=== PATIENT | female | born 1965 | race Caucasian/White ===

== ENCOUNTER 2020-03-04 01:32 | Outpatient (CLI) | payer OTHER, SELFPAY ==
[2020-03-04 18:04] LABS: SARS-CoV-2 RNA PCR Negative
== END 2020-03-04 01:33 | disposition home or self-care (01) ==
LOC: ANHCOVIDDT 01:33
PROVIDERS: PCP Family Medicine; Visit Provider Internal Medicine Gastroenterology
DX: Z01.812 Encounter for preprocedural laboratory examination (principal); Z20.828 Contact with and (suspected) exposure to other viral communicable diseases
CPT/HCPCS: 87635; C9803; U0003

== ENCOUNTER 2020-03-08 02:00 | Day surgery (SDC) | payer OTHER, SELFPAY ==
[2020-03-02 12:16] VITALS: BMI 27.8
[2020-03-08 08:26] VITALS: BP 151/82; PULSE 79; RESP 18; TEMP 36.3; O2SAT 100; BMI 28.4
[2020-03-08] MEDS: LACTATED RINGERS 1,000 ML 150 ML IV CONT (08:38)
[2020-03-08 08:45] LABS: Glucose Point of Care 152 (65-105)
--- NOTE | 2020-03-08 09:13 | WPDANESEPPF ---
Anes - Initial Pre Proc Eval Procedure: Operation Date: 03/08/20 09:30 Proposed Procedures p Screening Colonoscopy - Angel Leyva MD Date/Time: 03/08/20 09:13 Surgeon: Angel Leyva MD Pre Op Diagnosis: Neoplasm Screening Patient Data Age: 54 Gender: F Height: 5 ft 1 in Weight: 68.3 kg Last Vital Signs Temp 36.3 C L 03/08/20 08:26 Pulse 79 03/08/20 08:26 Resp 18 03/08/20 08:26 BP 151/82 H 03/08/20 08:26 Pulse Ox 100 03/08/20 08:26 Allergies Allergy/AdvReac Type Severity Reaction Status Date / Time No Known Allergies Allergy Mild Verified 03/08/20 08:25 Home Medications Medication Instructions Recorded Confirmed Type blood sugar diagnostic #10 each 04/19/19 01/28/20 History insulin detemir U-100 100 unit/mL 16 unit SUB-Q DAILY 04/19/19 03/02/20 History (3 mL) subcutaneous pen insulin lispro 100 unit/mL 14 unit SUB-Q BID 04/19/19 03/02/20 History subcutaneous pen pen needle, diabetic 30 gauge x #100 each 04/19/19 01/28/20 History /16 gabapentin 300 mg capsule 300 mg PO TID #270 cap 11/26/19 03/02/20 Rx fluoxetine 20 mg tablet 20 mg PO DAILY #90 tablet 01/14/20 03/02/20 Rx metoprolol tartrate 25 mg tablet 25 mg PO BID #180 tablet 01/14/20 03/02/20 Rx hydrocodone 5 mg-acetaminophen 325 1 tablet PO Q6H PRN #120 tablet 01/28/20 03/02/20 Rx mg tablet ascorbic acid (vitamin C) 1 g PO DAILY 03/02/20 03/02/20 History biotin 100 mg PO DAILY 03/02/20 03/02/20 History cholecalciferol (vitamin D3) 125 mcg PO WEEKLY 03/02/20 03/02/20 History [Vitamin D3] coenzyme Q10 [Co Q-10] 100 mg PO DAILY 03/02/20 03/08/20 History dulaglutide [Trulicity] 1.5 mg SUBCUT WEEKLY 03/02/20 03/08/20 History omega-3 fatty acids [[place] Oil] 1,200 mg PO DAILY 03/02/20 03/02/20 History zolpidem 10 mg PO HS 03/02/20 03/02/20 History sodium,potassium,mag sulfates 17.5 354 ml PO .COMPLEX #354 ml 03/06/20 Rx gram-3.13 gram-1.6 gram oral soln sodium,potassium,mag sulfates 17.5 See Rx Instructions PO .COMPLEX 03/06/20 Rx gram-3.13 gram-1.6 gram oral soln #354 ml Laboratory Tests 03/08/20 08:33 POC Capillary Glucose 152 mg/dl H mg/dl (65-105) Patient hx anesthesia problems: none Family hx anesthesia problems: none PMFSH Past Medical History Medical History Benign reactive hypertension Chronic insomnia Chronic pain Chronic pain disorder Diabetes mellitus Encounter for orthopedic aftercare following scoliosis surgery Mixed hyperlipidemia Nephroblastoma Scoliosis after radiation therapy Surgical History Surgical History H/O partial nephrectomy H/O right nephrectomy Family History Family History Mother Hypertension Father Family history of malignant neoplasm, Onset Age: 72 Patient's father is Social History Social History Smoking status: Never smoker Second hand tobacco smoke exposure: No Alcohol intake: never Substance use: never Substance use type: does not use Living arrangements: with family Gender identity (if verbalized by the patient): Female Spiritual care concerns: No Anes - Eval Final PreProcedure Day of Procedure 03/08/20 09:13 Patient weight: overweight Heart: regular rate and rhythm Lungs: clear to auscultation Airway: Mallampati scale class II Neurological: alert and oriented Last oral intake: >/= 8 hours ASA classification: III Emergent: no Anesthetic plan: proceed Anesthesia type and monitoring: general GIVS and standard monitoring Informed Consent: The patient's anesthetic plan and its attendant risks and benefits were discussed with the patient/family/POA. Questions were solicited and answers provided to the satisfaction of the patient/family/POA.
--- NOTE | 2020-03-08 09:33 | PM.HPGS ---
History of Present Illness History of Present Illness Consent: Risks, benefits, and alternatives have been discussed and questions answered. Patient agrees to proceed with procedure. Chief complaint: Neoplasm Screening Narrative: Susan Acuña is a 54 year old female with colon polyps 3 years ago. Review of Systems Constitutional: Constitutional: Denies headache(s) and Denies weakness Eyes: Eyes: Denies blurry vision ENT: Reports Normal hearing present, Denies headache(s) and Denies neck pain Cardiovascular: Cardiovascular: Denies chest pain and Denies dyspnea Respiratory: Respiratory: Denies dyspnea Gastrointestinal: Gastrointestinal: Reports no additional gastrointestinal complaints Genitourinary: Genitourinary: Denies dysuria Musculoskeletal: Musculoskeletal: Denies neck pain Integumentary/Breasts: Skin/Breast: Denies dry skin Neurologic: Reports Normal hearing present, Denies headache(s) and Denies weakness Psychiatric: Psychiatric: Denies anxiety Endocrine: Endocrine: Denies change in body appearance Hematologic/Lymphatic: Hematologic/Lymphatic: Denies easy bleeding Allergic/Immunologic: Allergic/Immunologic: Denies urticaria PMFSH Past Medical History Medical History Benign reactive hypertension Chronic insomnia Chronic pain Chronic pain disorder Diabetes mellitus Encounter for orthopedic aftercare following scoliosis surgery Mixed hyperlipidemia Nephroblastoma Scoliosis after radiation therapy Surgical History Surgical History H/O partial nephrectomy H/O right nephrectomy Family History Family History Mother Hypertension Father Family history of malignant neoplasm, Onset Age: 72 Patient's father is Social History Social History Smoking status: Never smoker Second hand tobacco smoke exposure: No Alcohol intake: never Substance use: never Substance use type: does not use Living arrangements: with family Gender identity (if verbalized by the patient): Female Spiritual care concerns: No Meds Home Medications and Allergies Home Medications Medication Instructions Recorded Confirmed Type blood sugar diagnostic #10 each 04/19/19 01/28/20 History insulin detemir U-100 100 unit/mL 16 unit SUB-Q DAILY 04/19/19 03/02/20 History (3 mL) subcutaneous pen insulin lispro 100 unit/mL 14 unit SUB-Q BID 04/19/19 03/02/20 History subcutaneous pen pen needle, diabetic 30 gauge x #100 each 04/19/19 01/28/20 History 5/16 gabapentin 300 mg capsule 300 mg PO TID #270 cap 11/26/19 03/02/20 Rx fluoxetine 20 mg tablet 20 mg PO DAILY #90 tablet 01/14/20 03/02/20 Rx metoprolol tartrate 25 mg tablet 25 mg PO BID #180 tablet 01/14/20 03/02/20 Rx hydrocodone 5 mg-acetaminophen 325 1 tablet PO Q6H PRN #120 tablet 01/28/20 03/02/20 Rx mg tablet ascorbic acid (vitamin C) 1 g PO DAILY 03/02/20 03/02/20 History biotin 100 mg PO DAILY 03/02/20 03/02/20 History cholecalciferol (vitamin D3) 125 mcg PO WEEKLY 03/02/20 03/02/20 History [Vitamin D3] coenzyme Q10 [Co Q-10] 100 mg PO DAILY 03/02/20 03/08/20 History dulaglutide [Trulicity] 1.5 mg SUBCUT WEEKLY 03/02/20 03/08/20 History omega-3 fatty acids [[place] Oil] 1,200 mg PO DAILY 03/02/20 03/02/20 History zolpidem 10 mg PO HS 03/02/20 03/02/20 History sodium,potassium,mag sulfates 17.5 354 ml PO .COMPLEX #354 ml 03/06/20 Rx gram-3.13 gram-1.6 gram oral soln sodium,potassium,mag sulfates 17.5 See Rx Instructions PO .COMPLEX 03/06/20 Rx gram-3.13 gram-1.6 gram oral soln #354 ml Allergies Allergy/AdvReac Type Severity Reaction Status Date / Time No Known Allergies Allergy Mild Verified 03/08/20 08:25 Vital Signs Vital Signs - 24 hr 03/08/20 08:26 Temperature
[2020-03-08 09:58] VITALS: BP 111/63; PULSE 83; RESP 21; O2SAT 99
[2020-03-08 10:08] VITALS: BP 126/70; PULSE 74; RESP 15; O2SAT 100
[2020-03-08 10:18] VITALS: BP 133/76; PULSE 72; RESP 19; O2SAT 100
[2020-03-08 10:32] LABS: Glucose Point of Care 145 (65-105)
== END 2020-03-08 10:31 | disposition home or self-care (01) ==
PROVIDERS: PCP Family Medicine; Visit Provider Internal Medicine Gastroenterology
PROC: 0DJD8ZZ Inspection of Lower Intestinal Tract, Via Natural or Artificial Opening Endoscopic (ICD-10-PCS; CPT 45378; principal; 2020-03-08 09:30)
DX: Z12.11 Encounter for screening for malignant neoplasm of colon (principal); K63.5 Polyp of colon; D12.2 Benign neoplasm of ascending colon; I10 Essential (primary) hypertension; E78.2 Mixed hyperlipidemia; M41.50 Other secondary scoliosis, site unspecified; G47.00 Insomnia, unspecified; G89.29 Other chronic pain; Z85.528 Personal history of other malignant neoplasm of kidney; Z92.3 Personal history of irradiation
CPT/HCPCS: 45385; 45380; 88305; J2001; J2704; J7120

== ENCOUNTER 2020-12-25 13:08 | Outpatient (CLI) | payer BC, SELFPAY ==
--- NOTE | ~2020-12-25 | XR_ITS ---
EXAMINATION: XR chest 2V DATE: 12/25/2020 13:46 INDICATION: Cough and fever and shortness of breath. TECHNIQUE: Frontal and lateral views of the chest were obtained. COMPARISON: Chest 2 views 07/01/2017 FINDINGS: The chest demonstrates clear lungs without pneumonia, pleural effusion, or pneumothorax. Th e heart size is normal. There are changes of posterior fusion procedure in thoracic and lumbar spine. There is a compression fracture of T8, likely chronic. IMPRESSION: 1. No acute cardiopulmonary disease. Reviewed, dictated and finalized at location A.
== END 2020-12-25 13:09 | disposition home or self-care (01) ==
PROVIDERS: PCP Family Medicine; Visit Provider Physician Assistant
DX: R05 Cough (principal); R06.02 Shortness of breath
CPT/HCPCS: 71046

== ENCOUNTER → 2020-12-26 02:33 | Outpatient (CLI) | payer BC, SELFPAY ==
[2020-12-27 15:31] LABS: SARS-CoV-2 RNA PCR Negative
== END ==
PROVIDERS: PCP Family Medicine; Visit Provider Physician Assistant
DX: Z20.822 Contact with and (suspected) exposure to COVID-19 (principal); R68.89 Other general symptoms and signs
CPT/HCPCS: C9803; U0003; U0005

== ENCOUNTER 2021-01-03 10:34 | Outpatient (CLI) | payer BC, SELFPAY ==
--- NOTE | ~2021-01-03 | XR_ITS ---
EXAMINATION: XR abdomen/kub 1V INDICATION: Diarrhea, unspecified TECHNIQUE: Supine views of the abdomen were obtained on 2 radiographs. COMPARISON: None FINDINGS: The bowel gas pattern is nonspecific. No dilated loops of bowel are identified. Gas and sto ol are seen in the rectum. There are changes of thoracic through iliac fusion. Phleboliths are noted in the pelvis. IMPRESSION: 1. No radiographic correlate for the patient's symptoms. Reviewed, dictated and finalized at location B.
[2021-01-03 11:40] LABS: Basophils Absolute Auto 0.1 K/mm3 (0.0-0.1); Basophils Percent Auto 0.5 % (0.2-1.2); Eosinophils Absolute Auto 0.2 K/mm3 (0-0.3); Eosinophils Percent Auto 1.2 % (0-4.4); Hematocrit 33.1 % (37.0-47.0); Hemoglobin 9.6 g/dL (12.0-15.0); Immature Granulocyte Absolute 0.05 K/mm3 (0.00-0.031); Immature Granulocyte Percent A 0.4 % (0-0.5); Lymphocytes Absolute Auto 2.78 K/mm3 (0.9-3.2); Mean Corpuscular Hemoglobin 22.2 pg (26-34); Mean Corpuscular Volume 76.6 fl (80-100); Monocytes Absolute Auto 0.9 K/mm3 (0.1-0.6); Monocytes Percent Auto 7.3 % (2.6-8.5); Neutrophils Absolute Auto 8.2 K/mm3 (1.3-6.7); Neutrophils Percent Auto 67.6 % (45.5-73.1); Platelet Count Result 499 k/mm3 (150-375); Red Blood Count 4.32 M/mm3 (4.2-5.4); Red Cell Distribution Width 16.2 % (11.5-14.5); White Blood Count 12.1 K/mm3 (4.5-10.0)
[2021-01-03 11:59] LABS: Hemoglobin A1C 10.3 % (<5.7)
[2021-01-03 12:06] LABS: Alanine Aminotransferase 16 U/L (4-35); Albumin Level 4.2 g/dL (3.5-5.1); Alkaline Phosphatase 161 U/L (38-126); Anion Gap 7 mmol/L (8-16); Aspartate Amino Transferase 32 U/L (14-36); Bilirubin,Total 0.6 mg/dL (0.2-1.3); Blood Urea Nitrogen 25 mg/dL (7-17); Calcium 12.2 mg/dL (8.4-10.2); Carbon Dioxide 33 mmol/L (22-30); Chloride 96 mmol/L (98-107); Estimated Glomerular Filt Rate 42; Glucose 241 mg/dL (65-110); Potassium 4.7 mmol/L (3.4-5.0); Sodium 136 mmol/L (137-145)
[2021-01-03 12:40] LABS: Erythrocyte Sedimentation Rate 48 mm/hr (0-20)
== END 2021-01-03 10:35 | disposition home or self-care (01) ==
PROVIDERS: PCP Family Medicine; Visit Provider Physician Assistant
DX: R10.9 Unspecified abdominal pain (principal); R19.7 Diarrhea, unspecified; R11.0 Nausea; E11.9 Type 2 diabetes mellitus without complications; I10 Essential (primary) hypertension
CPT/HCPCS: 36415; 74018; 80053; 83036; 85025; 85652

== ENCOUNTER 2021-02-05 01:07 | Day surgery (SDC) | payer BC, SELFPAY ==
[2021-01-22 13:12] VITALS: BMI 28.4
[2021-02-05 12:32] VITALS: BP 153/80; PULSE 88; RESP 20; TEMP 35.6; BMI 29.5
[2021-02-05 12:49] LABS: Glucose Point of Care 271 mg/dl (65-105)
[2021-02-05] MEDS: LACTATED RINGERS 1,000 ML 150 ML IV CONT (12:49)
--- NOTE | 2021-02-05 13:07 | WPDANESEPPF ---
Anes - Initial Pre Proc Eval Procedure: Operation Date: 02/05/21 13:30 Proposed Procedures p Esophagogastroduodenoscopy - Angel Leyva MD Date/Time: 02/05/21 13:07 Surgeon: Angel Leyva MD Pre Op Diagnosis: anemia Patient Data Age: 55 Gender: F Height: 1.57 m Weight: 73.1 kg Last Vital Signs Temp 35.6 C L 02/05/21 12:32 Pulse 88 02/05/21 12:32 Resp 20 02/05/21 12:32 BP 153/80 H 02/05/21 12:32 Allergies Allergy/AdvReac Type Severity Reaction Status Date / Time No Known Allergies Allergy Mild Verified 02/05/21 12:29 Home Medications Medication Instructions Recorded Confirmed Type blood sugar diagnostic #10 each 04/19/19 01/22/21 History insulin detemir U-100 100 unit/mL 16 unit SUB-Q DAILY 04/19/19 01/22/21 History (3 mL) subcutaneous pen insulin lispro 100 unit/mL 16 unit SUB-Q BID 04/19/19 01/22/21 History subcutaneous pen pen needle, diabetic 30 gauge x #100 each 04/19/19 01/22/21 History /16 ascorbic acid (vitamin C) 1 g PO DAILY 03/02/20 01/22/21 History biotin 100 mg PO DAILY 03/02/20 01/22/21 History cholecalciferol (vitamin D3) 125 mcg PO WEEKLY 03/02/20 01/22/21 History [Vitamin D3] coenzyme Q10 [Co Q-10] 100 mg PO DAILY 03/02/20 01/22/21 History omega-3 fatty acids [[place] Oil] 1,200 mg PO DAILY 03/02/20 01/22/21 History metoprolol tartrate 25 mg tablet 25 mg PO BID #180 tablet 08/27/20 01/22/21 Rx duloxetine 30 mg capsule,delayed 30 mg PO DAILY 12/05/20 01/22/21 History release hydrocodone 5 mg-acetaminophen 325 1 tablet PO Q6H PRN #120 tablet 01/03/21 01/22/21 Rx mg tablet polysaccharide iron complex 150 mg 150 mg PO DAILY #30 cap 01/04/21 01/22/21 Rx iron capsule diphenhydramine HCl [Benadryl 25 mg PO HS 01/22/21 01/22/21 History Allergy] gabapentin 300 mg PO DAILY 01/22/21 01/22/21 History metoprolol tartrate 50 mg PO DAILY 01/22/21 01/22/21 History zolpidem 5 mg PO HS 01/22/21 01/22/21 History albuterol sulfate 90 mcg/actuation 1 puff INHALATION Q4H PRN #8.5 g 01/24/21 Rx aerosol inhaler omeprazole 40 mg capsule,delayed 40 mg PO DAILY #30 cap 01/26/21 Rx release Laboratory Tests 02/05/21 12:47 POC Capillary Glucose 271 mg/dl H mg/dl (65-105) Patient hx anesthesia problems: none Family hx anesthesia problems: none Results Review: All pre-operative results and documents have been reviewed as part of the pre-operative evaluation. REPLACED BY [facility] Past Medical History Medical History Adenomatous colon polyp Benign reactive hypertension Chronic insomnia Chronic pain Chronic pain disorder Diabetes mellitus Encounter for orthopedic aftercare following scoliosis surgery Mixed hyperlipidemia Nephroblastoma Scoliosis after radiation therapy Surgical History Surgical History H/O partial nephrectomy H/O right nephrectomy Family History Family History Mother Hypertension Father Family history of malignant neoplasm, Onset Age: 72 Patient's father is Social History Social History Social History: Smoking status: Never smoker Second hand tobacco smoke exposure: No Alcohol intake: never Substance use: never Substance use type: does not use Living arrangements: with family Gender identity (if verbalized by the patient): Female Sexual Orientation (if Verbalized by the Patient): Straight or Heterosexual Spiritual care concerns: No Anes - Eval Final PreProcedure Day of Procedure 02/05/21 13:07 Patient weight: overweight Heart: regular rate and rhythm Lungs: clear to auscultation Airway: Mallampati scale class II Neurological: alert and oriented Last oral intake: >/= 8 hours ASA classification: III Emergent: n
--- NOTE | 2021-02-05 13:55 | PM.HPGS ---
History of Present Illness History of Present Illness Consent: Risks, benefits, and alternatives have been discussed and questions answered. Patient agrees to proceed with procedure. Chief complaint: anemia Narrative: Susan Acuña is a 55 year old female with dyspepsia, heartburn better after using ppi, also found to have KIMBERLEE. Had colonoscopy last year Review of Systems Constitutional: Constitutional: Denies headache(s) and Denies weakness Eyes: Eyes: Denies blurry vision ENT: Reports Normal hearing present, Denies headache(s) and Denies neck pain Cardiovascular: Cardiovascular: Denies chest pain and Denies dyspnea Respiratory: Respiratory: Denies dyspnea Gastrointestinal: Gastrointestinal: Reports no additional gastrointestinal complaints Genitourinary: Genitourinary: Denies dysuria Musculoskeletal: Musculoskeletal: Denies neck pain Integumentary/Breasts: Skin/Breast: Denies dry skin Neurologic: Reports Normal hearing present, Denies headache(s) and Denies weakness Psychiatric: Psychiatric: Denies anxiety Endocrine: Endocrine: Denies change in body appearance Hematologic/Lymphatic: Hematologic/Lymphatic: Denies easy bleeding Allergic/Immunologic: Allergic/Immunologic: Denies urticaria PMFSH Past Medical History Medical History (Updated 02/05/21 @ 13:56 by Angel Leyva MD) Adenomatous colon polyp Anemia Benign reactive hypertension Chronic insomnia Chronic pain Chronic pain disorder Diabetes mellitus Dyspepsia Encounter for orthopedic aftercare following scoliosis surgery Mixed hyperlipidemia Nephroblastoma Scoliosis after radiation therapy Surgical History Surgical History H/O partial nephrectomy H/O right nephrectomy Family History Family History Mother Hypertension Father Family history of malignant neoplasm, Onset Age: 72 Patient's father is Social History Social History Social History: Smoking status: Never smoker Second hand tobacco smoke exposure: No Alcohol intake: never Substance use: never Substance use type: does not use Living arrangements: with family Gender identity (if verbalized by the patient): Female Sexual Orientation (if Verbalized by the Patient): Straight or Heterosexual Spiritual care concerns: No Meds Home Medications and Allergies Home Medications Medication Instructions Recorded Confirmed Type blood sugar diagnostic #10 each 04/19/19 01/22/21 History insulin detemir U-100 100 unit/mL 16 unit SUB-Q DAILY 04/19/19 01/22/21 History (3 mL) subcutaneous pen insulin lispro 100 unit/mL 16 unit SUB-Q BID 04/19/19 01/22/21 History subcutaneous pen pen needle, diabetic 30 gauge x #100 each 04/19/19 01/22/21 History 16 ascorbic acid (vitamin C) 1 g PO DAILY 03/02/20 01/22/21 History biotin 100 mg PO DAILY 03/02/20 01/22/21 History cholecalciferol (vitamin D3) 125 mcg PO WEEKLY 03/02/20 01/22/21 History [Vitamin D3] coenzyme Q10 [Co Q-10] 100 mg PO DAILY 03/02/20 01/22/21 History omega-3 fatty acids [[place] Oil] 1,200 mg PO DAILY 03/02/20 01/22/21 History metoprolol tartrate 25 mg tablet 25 mg PO BID #180 tablet 08/27/20 01/22/21 Rx duloxetine 30 mg capsule,delayed 30 mg PO DAILY 12/05/20 01/22/21 History release hydrocodone 5 mg-acetaminophen 325 1 tablet PO Q6H PRN #120 tablet 01/03/21 01/22/21 Rx mg tablet polysaccharide iron complex 150 mg 150 mg PO DAILY #30 cap 01/04/21 01/22/21 Rx iron capsule diphenhydramine HCl [Benadryl 25 mg PO HS 01/22/21 01/22/21 History Allergy] gabapentin 300 mg PO DAILY 01/22/21 01/22/21 History metoprolol tartrate 50 mg PO DAILY 01/22/21 01/22/21 History zolpidem 5 mg PO HS 01/22/21 01/22/21 History albuterol sulfate 90 mcg/actuation 1 puff INHALATION Q4H UT
[2021-02-05 14:13] VITALS: BP 137/74; PULSE 86; RESP 19; O2SAT 100
[2021-02-05 14:23] VITALS: BP 145/79; PULSE 76; RESP 14; O2SAT 100
[2021-02-05 14:33] VITALS: BP 123/90; PULSE 73; RESP 15; O2SAT 100
[2021-02-05 14:34] LABS: Glucose Point of Care 187 mg/dl (65-105)
== END 2021-02-05 14:50 | disposition home or self-care (01) ==
PROVIDERS: PCP Family Medicine; Visit Provider Internal Medicine Gastroenterology
PROC: 0DJ08ZZ Inspection of Upper Intestinal Tract, Via Natural or Artificial Opening Endoscopic (ICD-10-PCS; CPT 43235; principal; 2021-02-05 13:30)
DX: D50.0 Iron deficiency anemia secondary to blood loss (chronic) (principal); D64.9 Anemia, unspecified; K31.5 Obstruction of duodenum; R10.13 Epigastric pain; K29.70 Gastritis, unspecified, without bleeding; Z87.19 Personal history of other diseases of the digestive system; E11.9 Type 2 diabetes mellitus without complications; E78.2 Mixed hyperlipidemia; Z79.899 Other long term (current) drug therapy; Z79.4 Long term (current) use of insulin; Z79.51 Long term (current) use of inhaled steroids
CPT/HCPCS: 43239; 82948; 88305; J2001; J2704; J7120

== ENCOUNTER 2022-12-11 11:07 | Outpatient (CLI) | payer BC, MEDICARE, SELFPAY ==
--- NOTE | 2022-12-11 11:18 | ECG_ITS ---
Measurements Intervals [place] Rate: 73 P: 42 OK: 136 QRS: 10 QRSD: 91 T: 40 QT: 387 QTc: 427 Interpretive Statements SINUS RHYTHM INCOMPLETE RIGHT BUNDLE BRANCH BLOCK [90+ ms QRS DURATION, TERMINAL R IN V1/V2, 40+ ms S IN I/aVL/V4/V5/V6] NO PREVIOUS ECG AVAILABLE FOR COMPARISON Electronically Signed On 12-11-2022 15:25:25 CDT by Hetal Napier M.D.
[2022-12-11 11:33] LABS: Hematocrit 39.5 % (37.0-47.0); Hemoglobin 12.2 g/dL (12.0-15.0)
[2022-12-11 11:46] LABS: Anion Gap 3 mmol/L (8-16); Blood Urea Nitrogen 20 mg/dL (7-17); Calcium 9.2 mg/dL (8.4-10.2); Carbon Dioxide 30 mmol/L (22-30); Chloride 99 mmol/L (98-107); Estimated Glomerular Filt Rate 51; Glucose 250 mg/dL (65-110); Potassium 4.6 mmol/L (3.4-5.0); Sodium 132 mmol/L (137-145)
[2022-12-11 11:47] LABS: INR 0.9; Prothrombin Time 12.3 Seconds (11.1-14.7)
[2022-12-11 11:48] LABS: Partial Thromboplastin Time 27.4 SECONDS (22.3-36.8)
== END 2022-12-11 11:08 | disposition home or self-care (01) ==
LOC: ANHSURGERY 11:13
PROVIDERS: Anesthesiology; PCP Family Medicine; Visit Provider Podiatrist Foot & Ankle Surgery
DX: Z01.818 Encounter for other preprocedural examination (principal); E11.43 Type 2 diabetes mellitus with diabetic autonomic (poly)neuropathy; D64.9 Anemia, unspecified; N18.9 Chronic kidney disease, unspecified
CPT/HCPCS: 36415; 80048; 85014; 85018; 85610; 85730; 93005

== ENCOUNTER 2022-12-13 00:16 | Day surgery (SDC) | payer BC, MEDICARE, SELFPAY ==
[2022-12-10 13:13] VITALS: BMI 29.3
--- NOTE | 2022-12-10 13:31 | SUR.PREOP ---
Report to the Outpatient Waiting Room, entrance under the green pavilion located off [facility], at time 0600__ on date 12/13/22 . Planned Procedure Time: _0730 . Time changes happen often and if your time is changed the preop area will call you the afternoon before. - You and your visitor will be asked to self-screen and do not enter if you have any COVID symptoms. - A mask is optional within the hospital at this time. Patients may have clear liquids (water, carbonated beverages, clear teas, apple juice) until 3 hours prior to surgery with a maximum of 20 ounces. - No food from midnight until time of surgery - Infants may have breast milk until 4 hours before surgery, infant formula 6 hours prior to surgery. - Children will be allowed to drink immediately following surgery. If applicable, please bring a bottle or sippy cup to assist with drinking. Juice, water, soda, and popsicles are readily available. For infants on formula, please bring formula the day of surgery. Pacifiers are allowed. Take the following medications with a SIP of water the morning of surgery: _n/a DO NOT STOP ANY OF YOUR OTHER PRESCRIPTION MEDICATIONS PRIOR TO SURGERY ?EXCEPT THE FOLLOWING Medications to discontinue per physician __VITAMIN SUPPLEMENTS Date to take last dose____12/10/22 Please no make-up, nail azeri, hairspray, perfume, deodorant, or body powder the day of surgery. No jewelry (including any body piercings) or valuables the day of surgery, leave them at home. Please take a shower or bath the night before, or the morning of, surgery with an antibacterial soap. Wear comfortable, loose fitting clothing. Children are encouraged to wear pajamas. - Jewelry must be removed prior to entering the operating room. Rings and piercings that are not removed may be cut off. - The hospital will not accept responsibility for valuables. - Please leave all valuables, including medications, at home the day of surgery. If you are going home after surgery, a licensed local company tanker driver must drive you home. - NO public transportation without another adult if you receive anesthesia. - We recommend that an adult stay with you for 24 hours following discharge. - We also recommend that you do not drive, make important decision, drink alcoholic beverages, or take any drugs that were not prescribed by your health care provider for at least 24 hours after your discharge time. For Pediatric surgeries, we recommend two adults accompany the child home. Follow any additional instructions given to you from your surgeon. If you or anyone in your household have experienced Covid symptoms in the past week, please notify your surgeon or the nurse liaison at the phone number below for possible testing. Telephone instructions given to _chris suarez and asked if any additional questions and then verbalized understanding. Patient advised to call surgeon office or pre surgery nurse liaison [phone] if any additional questions.
[2022-12-13] VITALS (8 sets, daily range): BP systolic 105–162; BP diastolic 45–85; PULSE 71–78; RESP 10–18; TEMP 36.1–36.6; O2SAT 96–100
--- NOTE | ~2022-12-13 | XR_ITS ---
EXAMINATION: XR surgery orthopedic DATE: 12/13/2022 08:40 INDICATION: Left foot arthrodesis TECHNIQUE: 2 fluoroscopic images of the left forefoot were obtained during procedure performed by Dr. Fernandez. Radiologist was not present for the imaging or procedure. The amount of fluoroscopy time u sed during this procedure was 0.1 minutes. COMPARISON: None. FINDINGS: Shortening osteotomy at the neck of the second metatarsal which is fixed with a pair of screws. First metatarsophalangeal arthrodesis with dorsal plate and screw fixation. There is an additional dorsal plate and screw fixation at the proximal half of the first metatarsal. Alignment appears near-anatomi c. No fracture. IMPRESSION: 1. Fluoroscopy utilized during orthopedic procedure at the left forefoot. See procedure note for furt her detail. Reviewed, dictated and finalized at location A. IMPRESSION: 1. Fluoroscopy utilized during orthopedic procedure at the left forefoot. See p rocedure note for further detail.
[2022-12-13] MEDS: LACTATED RINGERS 1,000 ML 30 ML IV CONT ×2 (06:40→09:00)
[2022-12-13 07:02] LABS: Glucose Point of Care 148 mg/dl (65-105)
--- NOTE | 2022-12-13 07:07 | WPDANESEPPF ---
Anes - Initial Pre Proc Eval Procedure: Operation Date: 12/13/22 07:30 Proposed Procedures p Arthrodesis of the First Metatarsal Phalangeal Joint Left Foot, Juan Daniel Shortening Second Metatarsal Osteotomy Left Foot - Boaz Fernandez JR, MD Date/Time: 12/13/22 07:07 Surgeon: Boaz Fernandez JR, MD Pre Op Diagnosis: Bunion Lt Foot, Metatarsalgia Lt Foot Patient Data Age: 57 Gender: F Height: 1.57 m Weight: 74.5 kg Last Vital Signs Temp 36.6 C 12/13/22 06:25 Pulse 72 12/13/22 06:25 Resp 18 12/13/22 06:25 BP 140/82 12/13/22 06:25 Pulse Ox 100 12/13/22 06:25 O2 Del Method Room Air 12/13/22 06:25 Allergies Allergy/AdvReac Type Severity Reaction Status Date / Time No Known Allergies Allergy Mild Verified 12/10/22 12:37 Home Medications Medication Instructions Recorded Confirmed Type blood sugar diagnostic (Contour #10 ea 04/19/19 09/06/22 History Test Strips) pen needle, diabetic 30 gauge x #100 ea 04/19/19 09/06/22 History 5/16 (CareFine Pen Needle) cholecalciferol (vitamin D3) 125 125 mcg PO DAILY 03/02/20 12/13/22 History mcg (5,000 unit) tablet (Vitamin D3) coenzyme Q10 100 mg capsule (Co 100 mg PO DAILY 03/02/20 12/13/22 History Q-10) omega-3 fatty acids 1,200 mg PO WEEKLY 03/02/20 12/13/22 History duloxetine 30 mg capsule,delayed 30 mg PO HS 12/05/20 12/13/22 History release (Cymbalta) diphenhydramine HCl 25 mg tablet 25 mg PO HS 01/22/21 12/13/22 History (Benadryl Allergy) metoprolol tartrate 50 mg tablet 50 mg PO HS 01/22/21 12/13/22 History promethazine 12.5 mg tablet 12.5 mg PO Q6H PRN nausea and 01/22/22 12/13/22 Rx vomiting #10 tabs fluticasone propionate 50 See Rx Instructions .Route 04/10/22 12/13/22 Rx mcg/actuation nasal .COMPLEX #16 mL spray,suspension semaglutide 1 mg/dose (4 mg/3 mL) 1 mg subcut WEEKLY 11/26/22 12/13/22 History subcutaneous pen injector (Ozempic) biotin 5 mg capsule 5 mg PO DAILY 12/10/22 12/13/22 History gabapentin 300 mg capsule 600 mg PO HS 12/10/22 12/13/22 History insulin detemir U-100 100 unit/mL 14 unit subcut AC 12/10/22 12/13/22 History (3 mL) subcutaneous pen (Levemir FlexPen) insulin detemir U-100 100 unit/mL 22 unit subcut AC 12/10/22 12/13/22 History (3 mL) subcutaneous pen (Levemir FlexPen) [id number] 1 cap PO TID 12/10/22 12/13/22 History 40,000-126,000-168,000 unit capsule, delay rel (Zenpep) multivitamin 1 cap PO DAILY 12/10/22 12/13/22 History omeprazole 40 mg capsule,delayed 40 mg PO PRN 12/10/22 12/13/22 History release oxycodone 10 mg tablet 5 mg PO HS pain, severe 12/10/22 12/13/22 History polysaccharide iron complex 150 mg 65 mg PO HS 12/10/22 12/13/22 History iron capsule (Poly-Iron) Laboratory Tests 12/13/22 06:41 POC Capillary Glucose 148 H mg/dl (65-105) Patient hx anesthesia problems: post op nausea/vomiting Family hx anesthesia problems: none Results Review: All pre-operative results and documents have been reviewed as part of the pre-operative evaluation. 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
[2022-12-13] MEDS: SCOPOLAMINE 1.5 MG PATCH TRANSDERM (07:10)
--- NOTE | 2022-12-13 07:18 | WPDHPUPDATE1 ---
History and Physical Update Update Date/Time: 12/13/22 07:18 History and Physical has been reviewed, including an updated exam of the patient. There are NO changes in the patient's condition. Risks, benefits, and alternatives have been discussed and questions answered. Patient agrees to proceed with procedure.
[2022-12-13] MEDS: ceFAZolin 2 GM/D5W 50 ML 2 GM/50 ML BAG IVPB (07:33)
[2022-12-13] MEDS: LIDOCAINE HCL 2% LOCAL INJ 20 ML VIAL 10 ML INFILTRATE (08:02)
[2022-12-13] MEDS: BUPivacaine HCL 0.5% 10 ML AMP INFILTRATE (08:03)
--- NOTE | 2022-12-13 09:18 | W.PM.PROC2 ---
Procedure Note - Detailed Date of Procedure 12/13/22 Pre-op Diagnosis 1. Recurrent Bunion left foot 2. Metatarsalgia sub second metatarsal phalangeal joint left foot Post-op Diagnosis Same Procedure Performed 1. Arthrodesis of the first metatarsal phalangeal joint left foot 2. Juan Daniel shortening second metatarsal osteotomy left foot Surgeon Boaz Fernandez JR, ANGELY Anesthesia General, Regional and Local Indications Painful recurrent bunion deformity left foot with ball of foot pain. Description of Procedure PROCEDURE IN DETAIL: Under mild sedation, the patient was brought into the operating room, placed on the operating table in supine position. A pneumatic ankle tourniquet was placed about the patient's ipsilateral ankle. Following general anesthesia and a popliteal fossa block, I administered a proximal Pinzon block about the bases of the first and second metatarsals. The foot was then scrubbed, prepped, and draped in the usual aseptic manner. An Esmarch bandage was then used to exsanguinate the patient's foot and the pneumatic ankle tourniquet was then inflated. Surgery began in the following manner: Attention was directed to the dorsal medial aspect of the 1st metatarsophalangeal joint where there was a hallux valgus deformity noted with a promienent first metatarsal phalangeal joint dorsal medially. The incision was made starting along the central shaft of the 1st metatarsal and extending just proximal to the interphalangeal joint of the hallux. The incision was continued deep down through the subcutaneous tissues using sharp and blunt dissection. All bleeders were cauterized as necessary. At this point, the dissection was continued down to the level of the periosteum and capsular structures overlying the 1st metatarsophalangeal joint. A full length periosteum and capsular incision was made just medial to the extensor hallucis longus tendon. The periosteum and capsular structures were freed from the base of the proximal phalanx as well as the distal 1st metatarsal. At this point, the 1st metatarsophalangeal joint was identified. There was loss of articular cartilage to the head of the 1st metatarsal as well as the base of the proximal phalanx worse medially. There was broadening and hypertrophy of the 1st metatarsophalangeal joint. Utilizing a sagittal bone saw, the hypertrophied 1st metatarsal was resected dorsally, medially, and laterally. A power bur was used to make sure that there were no rough edges and also to further debride the hypertrophic 1st metatarsal. Next, a rongeur was used to resect the hypertrophic base of the proximal phalanx. At this point, the reamer system for the PartTec system was used to denude the degenerative cartilage from the head of the 1st metatarsal as well as the base of the proximal phalanx. The cartilage and subchondral bone were fully debrided utilizing the reamer system until healthy bleeding bone was noted. I flushed the surgery site with copious amounts of sterile saline. Next, a 2-0 drill bit was used to further fenestrate the head of the 1st metatarsal as well as the base of the proximal phalanx in order to allow fusion across the 1st metatarsophalangeal joint. Next, a 0.045 inch K-wire was driven from the medial aspect of the base of the proximal phalanx into the head of the 1st metatarsal in order to serve as temporary fixation. A large steel plate was used to make sure that the hallux was in a rectus position both in the sagittal plane as well as the frontal and transverse plane. Excellent position of the hallux was noted. Next, a CrossCHECK plate was placed atop the 1st metatarsophalangeal joint held in position with Meridian wires. Utilizing standard principles and techniques, the 2 distal drill holes were drilled and two 2.7mm mm fully-threaded locking screws were driven from dorsal to plantar holding the distal aspect of the plate intact. At this point, a 3.5mm lag
[2022-12-13 09:33] LABS: Glucose Point of Care 165 mg/dl (65-105)
== END 2022-12-13 10:53 | disposition home or self-care (01) ==
PROVIDERS: PCP Family Medicine; Visit Provider Podiatrist Foot & Ankle Surgery
PROC: (CPT 28750; principal; 2022-12-13 07:30)
DX: M21.612 Bunion of left foot (principal); M77.42 Metatarsalgia, left foot; I12.9 Hypertensive chronic kidney disease with stage 1 through stage 4 chronic kidney disease, or unspecified chronic kidney disease; E11.22 Type 2 diabetes mellitus with diabetic chronic kidney disease; N18.2 Chronic kidney disease, stage 2 (mild); M1A.00X0 Idiopathic chronic gout, unspecified site, without tophus (tophi); E78.2 Mixed hyperlipidemia; E11.21 Type 2 diabetes mellitus with diabetic nephropathy; Z85.528 Personal history of other malignant neoplasm of kidney; Z79.899 Other long term (current) drug therapy; Z79.4 Long term (current) use of insulin; Z90.5 Acquired absence of kidney
CPT/HCPCS: 28750; 28308; 82948; 99199; A9270; C1713; J0690; J1100; J2250; J2371; J2405; J2704; J3010; J7120

== ENCOUNTER 2023-02-04 15:35 | Outpatient (CLI) | payer BC, MEDICARE, SELFPAY ==
[2023-02-04 16:10] LABS: Anion Gap 5 mmol/L (8-16); Blood Urea Nitrogen 22 mg/dL (7-17); Calcium 9.8 mg/dL (8.4-10.2); Carbon Dioxide 31 mmol/L (22-30); Chloride 99 mmol/L (98-107); Estimated Glomerular Filt Rate 42; Glucose 205 mg/dL (65-110); Potassium 4.4 mmol/L (3.4-5.0); Sodium 135 mmol/L (137-145)
== END 2023-02-04 15:36 | disposition home or self-care (01) ==
LOC: ANHSURGERY 15:38
PROVIDERS: Anesthesiology; PCP Family Medicine; Visit Provider Podiatrist Foot & Ankle Surgery
DX: Z01.818 Encounter for other preprocedural examination (principal); E11.43 Type 2 diabetes mellitus with diabetic autonomic (poly)neuropathy
CPT/HCPCS: 36415; 80048

== ENCOUNTER 2023-02-07 04:12 | Day surgery (SDC) | payer BC, MEDICARE, SELFPAY ==
[2023-01-27 14:08] VITALS: BMI 29.0
--- NOTE | 2023-01-27 14:40 | PC.NURSE ---
Report to the Outpatient Waiting Room, entrance under the green pavilion located off [facility], at time _0900__ on date _02/07/23__. Planned Procedure Time: _1100__. Time changes happen often and if your time is changed the preop area will call you the afternoon before. - You and your visitor will be asked to self-screen and do not enter if you have any COVID symptoms. - A mask is optional within the hospital at this time. Patients may have clear liquids (water, carbonated beverages, clear teas, apple juice) until 3 hours prior to surgery with a maximum of 20 ounces. - No food from midnight until time of surgery Take the following medications with a SIP of water the morning of surgery: N/A DO NOT STOP ANY OF YOUR OTHER PRESCRIPTION MEDICATIONS PRIOR TO SURGERY ?EXCEPT THE FOLLOWING Medications to discontinue per physician ____D/C ALL SUPPLEMENTS 02/04/23 Date to take last dose Please no make-up, nail emirati, hairspray, perfume, deodorant, or body powder the day of surgery. No jewelry (including any body piercings) or valuables the day of surgery, leave them at home. Please take a shower or bath the night before, or the morning of, surgery with an antibacterial soap. Wear comfortable, loose fitting clothing. Children are encouraged to wear pajamas. - Jewelry must be removed prior to entering the operating room. Rings and piercings that are not removed may be cut off. - The hospital will not accept responsibility for valuables. - Please leave all valuables, including medications, at home the day of surgery. If you are going home after surgery, a licensed truck driver heavy must drive you home. - NO public transportation without another adult if you receive anesthesia. - We recommend that an adult stay with you for 24 hours following discharge. - We also recommend that you do not drive, make important decision, drink alcoholic beverages, or take any drugs that were not prescribed by your health care provider for at least 24 hours after your discharge time. Follow any additional instructions given to you from your surgeon. If you or anyone in your household have experienced Covid symptoms in the past week, please notify your surgeon or the nurse liaison at the phone number below for possible testing. Telephone instructions given to _VENESSA___and asked if any additional questions and then verbalized understanding. Patient advised to call surgeon office or pre surgery nurse liaison [phone] if any additional questions.
--- NOTE | ~2023-02-07 | XR_ITS ---
EXAMINATION: XR surgery orthopedic DATE: 02/07/2023 11:06 INDICATION: Left foot hardware removal. TECHNIQUE: A single intraoperative fluoroscopic view of left foot was obtained. I was not present. Fl uoroscopy exposure time was 1 second. COMPARISON: Fluoroscopy 12/13/2022 FINDINGS: There is an osteotomy of neck of second metatarsal with fixation with [address] ate and screw fixation of first metatarsal proximally. The plate and screws at first metatarsophalang eal joint have been removed. IMPRESSION: 1. Removal of the plate and screws at first metatarsophalangeal joint. Reviewed, dictated and finalized at location A.
--- NOTE | 2023-02-07 07:05 | WPDHPUPDATE1 ---
History and Physical Update Update Date/Time: 02/07/23 07:05 History and Physical has been reviewed, including an updated exam of the patient. There are NO changes in the patient's condition. Risks, benefits, and alternatives have been discussed and questions answered. Patient agrees to proceed with procedure.
[2023-02-07 07:50] VITALS: BP 137/72; PULSE 63; RESP 14; TEMP 36.7; O2SAT 100; BMI 28.8
[2023-02-07] MEDS: LACTATED RINGERS 1,000 ML 30 ML IV CONT ×2 (08:35→11:29)
--- NOTE | 2023-02-07 08:46 | WPDANESEPPF ---
Anes - Initial Pre Proc Eval Procedure: Operation Date: 02/07/23 10:00 Proposed Procedures p Removal of Deep Orthopedic Hardware Left Foot - Boaz Fernandez JR, MD Date/Time: 02/07/23 08:46 Surgeon: Boaz Fernandez JR, MD Pre Op Diagnosis: Painful Hardware Left Foot Patient Data Age: 57 Gender: F Height: 1.57 m Weight: 72 kg Allergies Allergy/AdvReac Type Severity Reaction Status Date / Time No Known Allergies Allergy Mild Verified 12/18/22 16:20 Home Medications Medication Instructions Recorded Confirmed Type blood sugar diagnostic (Contour #10 ea 04/19/19 01/27/23 History Test Strips) pen needle, diabetic 30 gauge x #100 ea 04/19/19 01/27/23 History 5/16 (CareFine Pen Needle) cholecalciferol (vitamin D3) 125 125 mcg PO DAILY 03/02/20 01/27/23 History mcg (5,000 unit) tablet (Vitamin D3) coenzyme Q10 100 mg capsule (Co 100 mg PO DAILY 03/02/20 01/27/23 History Q-10) omega-3 fatty acids 1,200 mg PO WEEKLY 03/02/20 01/27/23 History duloxetine 30 mg capsule,delayed 30 mg PO HS 12/05/20 01/27/23 History release (Cymbalta) diphenhydramine HCl 25 mg tablet 25 mg PO HS 01/22/21 01/27/23 History (Benadryl Allergy) metoprolol tartrate 50 mg tablet 50 mg PO HS 01/22/21 01/27/23 History fluticasone propionate 50 See Rx Instructions .Route 04/10/22 01/27/23 Rx mcg/actuation nasal .COMPLEX #16 mL spray,suspension semaglutide 1 mg/dose (4 mg/3 mL) 1 mg subcut WEEKLY 11/26/22 01/27/23 History subcutaneous pen injector (Ozempic) biotin 5 mg capsule 5 mg PO DAILY 12/10/22 01/27/23 History gabapentin 300 mg capsule 600 mg PO HS 12/10/22 01/27/23 History insulin detemir U-100 100 unit/mL 22 unit subcut AC 12/10/22 01/27/23 History (3 mL) subcutaneous pen (Levemir FlexPen) [id number] 1 cap PO TID 12/10/22 01/27/23 History 40,000-126,000-168,000 unit capsule, delay rel (Zenpep) multivitamin 1 cap PO DAILY 12/10/22 01/27/23 History omeprazole 40 mg capsule,delayed 40 mg PO PRN 12/10/22 01/27/23 History release oxycodone 10 mg tablet 5 mg PO HS pain, severe 12/10/22 01/27/23 History polysaccharide iron complex 150 mg 65 mg PO HS 12/10/22 01/27/23 History iron capsule (Poly-Iron) insulin aspart U-100 100 unit/mL 14 unit (0.14 mL) subcut TIDWMEAL 12/18/22 01/27/23 Rx subcutaneous cartridge (Novolog #15 mL PenFill U-100 Insulin aspart) promethazine 12.5 mg tablet 12.5 mg PO Q6H PRN nausea and 12/18/22 01/27/23 Rx vomiting #10 tabs rosuvastatin 5 mg tablet 5 mg PO DAILY 12/18/22 01/27/23 History Patient hx anesthesia problems: none Family hx anesthesia problems: none Results Review: All pre-operative results and documents have been reviewed as part of the pre-operative evaluation. 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
[2023-02-07 08:51] LABS: Glucose Point of Care 153 mg/dl (65-105)
[2023-02-07] MEDS: ceFAZolin 2 GM/D5W 50 ML 2 GM/50 ML BAG IVPB (10:26)
[2023-02-07] MEDS: LIDOCAINE HCL 2% PF INJ 5 ML VIAL 20 ML INFILTRATE (10:54)
[2023-02-07 11:13] VITALS: BP 122/60; PULSE 71; RESP 12; O2SAT 100
--- NOTE | 2023-02-07 11:24 | W.PM.PROC2 ---
Procedure Note - Detailed Date of Procedure 02/07/23 Pre-op Diagnosis Painful Hardware Left Foot Post-op Diagnosis Same Procedure Performed Removal of deep orthopedic hardware left foot Surgeon Boaz Fernandez JR, DPM Anesthesia MAC and Local Indications Painful hardware left foot Findings Significant scar tissue noted to the first metatarsal phalangeal joint left foot Description of Procedure Under mild sedation, the patient was brought in to the operating room, placed on the operating table in the supine position. A pneumatic ankle tourniquet was placed about the patient's leg. Following monitored anesthesia care, local anesthesia was obtained about the patients ankle utilizing 20 mL of a 1:1 mixture of 2% Lidocaine plain and 0.5% Marcaine plain. The foot was then scrubbed, prepped, and draped in the usual aseptic manner. An Esmarch bandage was then used to exsanguinate the patient's foot and the pneumatic ankle tourniquet was then inflated. An incision was made along the dorsal aspect of the first metatarsal phalangeal joint left foot. Dissection was continued to the subcutaneous tissues all bleeders were cauterized as necessary. A full length periosteal and capsular incision was made overlying the dorsal aspect of the first metatarsal phalangeal joint arthrodesis site. The lag screw and non locking screw had retrograded into the soft tissue, they wre were removed in toto.There was noted incomplete healing to the fusion site . The decision was made to remove entire plate to prevent a need for plate removal in the future. Fluoroscopy was used to confirm complete hardware removal. There was significant scar tissue overlying the dorsum of the joint. This hypertrophic scar tissue was excised. Next, the periosteum and capsule was reapproximated with 3-0 Capsule, The subcutaneous tissue was reapproximated with 4-0 Vicryl and last the skin was reapproximated and coapted utilizing 4-0 Monocryl in a running subcuticular suture fashion technique. Upon completion of the procedure, the incision was dressed with Steri strips Adaptic, 4x4s, Kerlix, and Coban. The pneumatic calf tourniquet was then deflated and a prompt hyperemic response was noted to all digits of the foot. The Cam walker boot will be applied in PACU. The patient did very well with the procedure and the anesthesia. The patient was transferred to the recovery room with vital signs stable and vascular status intact to all toes of the foot. Following a period of postoperative monitoring, the patient will be discharged home on the following written and oral postoperative instructions: 1. The patient should keep the dressing clean, dry, and intact. Use a cast protector bag with showers. 2. The patient will be protected weightbearing with CAM boot. 3. Patient should ice and elevate the affected lower extremity while at rest. 4. The patient is to contact Dr. Fernandez for all postop care and if any problems arise. 5. Prescriptions were written for Percocet 5/325 dispensed 40 to be taken 1 p.o. q.4-6 hours as needed for severe pain. Estimated Blood Loss -1.0 Drains No Packing No Pathology None sent Complications No immediate complications Condition Stable Disposition Same day
[2023-02-07 11:36] LABS: Glucose Point of Care 166 mg/dl (65-105)
[2023-02-07 11:40] VITALS: BP 144/74; PULSE 65; RESP 12; O2SAT 100
[2023-02-07 12:10] VITALS: BP 122/60; PULSE 71; RESP 16; O2SAT 97
--- NOTE | 2023-02-07 12:50 | SUR.PHASEII ---
Dr. Fernandez notified of patient fall that occurred in outpatient recovery. On the way back from using the restroom patient's walking boot on left foot got caught on edge of recliner chair causing patient to fall onto her right knee. Vital signs taken post fall WNL for patient. Patient denies need for additional medical attention at this time. Ice applied to right knee and leg elevated. Okay to discharge patient from Dr. Fernandez' order. Patient awaiting ride home from hospital.
[2023-02-07 12:55] VITALS: BP 156/74; PULSE 74; RESP 16; O2SAT 100
--- NOTE | 2023-02-07 14:55 | SUR.PHASEII ---
8020 PATIENT DRESSING; CAM WALKING BOOT PLACED TO LEFT FOOT. WALKING WITHOUT ASSISTANCE. AWAITING RIDE FROM DAUGHTER.
== END 2023-02-07 14:20 | disposition home or self-care (01) ==
PROVIDERS: PCP Family Medicine; Visit Provider Podiatrist Foot & Ankle Surgery
PROC: (CPT 20680; principal; 2023-02-07 10:00)
DX: T84.84XA Pain due to internal orthopedic prosthetic devices, implants and grafts, initial encounter (principal); M79.672 Pain in left foot; Y83.8 Other surgical procedures as the cause of abnormal reaction of the patient, or of later complication, without mention of misadventure at the time of the procedure; I12.9 Hypertensive chronic kidney disease with stage 1 through stage 4 chronic kidney disease, or unspecified chronic kidney disease; E11.22 Type 2 diabetes mellitus with diabetic chronic kidney disease; N18.2 Chronic kidney disease, stage 2 (mild); E11.21 Type 2 diabetes mellitus with diabetic nephropathy; D64.9 Anemia, unspecified; E78.2 Mixed hyperlipidemia; Z85.528 Personal history of other malignant neoplasm of kidney; Z90.5 Acquired absence of kidney; Z79.85 Long-term (current) use of injectable non-insulin antidiabetic drugs; Z79.4 Long term (current) use of insulin
CPT/HCPCS: 20680; 82948; 99199; J0690; J1100; J2250; J2371; J2405; J2704; J3010; J7120

== ENCOUNTER 2024-04-07 13:50 | Outpatient (CLI) | payer BC, MEDICARE, SELFPAY ==
[2024-04-07 14:52] LABS: Basophils Percent Auto 0.4 % (0.2-1.2); Eosinophils Absolute Auto 0.2 K/mm3 (0-0.3); Eosinophils Percent Auto 1.8 % (0-4.4); Hematocrit 42.6 % (37.0-47.0); Hemoglobin 13.4 g/dL (12.0-15.0); Immature Granulocyte Absolute 0.03 K/mm3 (0.00-0.031); Immature Granulocyte Percent A 0.4 % (0-0.5); Lymphocytes Absolute Auto 2.35 K/mm3 (0.9-3.2); Lymphocytes Percent Auto 28.4 % (18.3-44.2); Mean Corpuscular HGB Conc 31.5 g/dl (32-36); Mean Corpuscular Hemoglobin 29.5 pg (26-34); Mean Corpuscular Volume 93.8 fl (80-100); Mean Platelet Volume 9.8 fl (7.4-10.4); Monocytes Absolute Auto 0.6 K/mm3 (0.1-0.6); Monocytes Percent Auto 7.3 % (2.6-8.5); Neutrophils Absolute Auto 5.1 K/mm3 (1.3-6.7); Neutrophils Percent Auto 61.7 % (45.5-73.1); Platelet Count Result 278 k/mm3 (150-375); Red Blood Count 4.54 M/mm3 (4.2-5.4); White Blood Count 8.3 K/mm3 (4.5-10.0)
[2024-04-07 15:02] LABS: Add Urine Microscopic? YES; Appearance Urine Cloudy (Clear); Bacteria Urine Rare /hpf; Bilirubin Urine Negative (Negative); Blood Urine Negative (Negative); Color Urine Yellow (Yellow); Glucose Urine UA Negative (Negative); Ketones Urine Negative (Negative); Leukocyte Esterase Ur 2+ LEU/UL (Negative); Need Manual Microscopic Reviewed; Nitrate Urine Negative (Negative); Non Pathogenic Casts 0-2; Protein Urine Negative (Negative); RBC Urine 0-2 /hpf (0-2); Specific Grav Ur 1.019 (1.001-1.035); Squamous Epithelial Cell Urine Many /hpf (Few); Urobilinogen Urine 0.2 mg/dL (<2.0); WBC Urine 51-100 /hpf (0-3); pH Urine 5.5 (5.0-9.0)
[2024-04-07 15:54] LABS: Creatinine Urine 113.1 mg/dL
[2024-04-07 15:56] LABS: MALB Creatinine Ratio 11.1 mg/g (0-30); Microalbumin Urine Random 12.5 mg/L (0-16.7)
[2024-04-07 16:05] LABS: Parathyroid Intact 79.1 pg/mL (14.5-75.2)
[2024-04-07 16:24] LABS: Anion Gap 1 mmol/L (4-12); Blood Urea Nitrogen 16 mg/dL (7-17); Calcium 9.3 mg/dL (8.4-10.2); Carbon Dioxide 34 mmol/L (22-30); Chloride 101 mmol/L (98-107); Estimated Glomerular Filt Rate 46; Glucose 118 mg/dL (65-110); Phosphorus 3.2 mg/dL (2.5-4.5); Potassium 4.6 mmol/L (3.4-5.0); Sodium 136 mmol/L (137-145)
== END 2024-04-07 13:51 | disposition home or self-care (01) ==
PROVIDERS: Physician Assistant; PCP Family Medicine; Visit Provider Nurse Practitioner Family
DX: E87.5 Hyperkalemia (principal); N18.31 Chronic kidney disease, stage 3a
CPT/HCPCS: 36415; 80069; 81001; 82043; 83970; 85025

== ENCOUNTER 2024-12-23 14:27 | Outpatient (CLI) | payer BC, MEDICARE, SELFPAY ==
--- NOTE | ~2024-12-23 | CT_ITS ---
EXAMINATION: CT abdomen pelvis wo con DATE: 12/23/2024 14:47 INDICATION: Malignant neoplasm of the left kidney TECHNIQUE: Computed tomography (CT) of the abdomen and pelvis was performed without intravenous contrast. Automated exposure control and iterative reconstruction technique were employed. The dose-length product was 424.50 mGy-cm. COMPARISON: CT and MRI dated 10/24/2009 FINDINGS: Mild bibasilar atelectasis. Heart size normal. Atherosclerotic coronary artery calcific location. No pericardial or pleural effusion. 25-30 degree thoracolumbar levoscoliosis and instrumented posterior spinal fusion with bilateral vertical chanda and pedicle screw fixation extending from the mildly anteriorly wedged T8 vertebral body and extending through S1 with additional bilateral iliac screws. There is results in prominent metallic streak artifact which obscures the immediately adjacent spine and paravertebral soft tissues. 1.1 cm low-attenuation right hepatic lobe cyst. Gallbladder, pancreas, bilateral adrenal glands are normal. No significant change in a 2.2 cm splenic cyst. Status post right nephrectomy. There is a 7 x 4 mm calcification in the medial lower pole the left kidney at the site of a previously seen enhancing mass which suggests residual dystrophic calcification posterior prior partial nephrectomy or ablation. No bowel obstruction. Bladder is normal. Partial rim calcification associated with a 1.5 cm fibroid at the right-sided the uterine fundus. Bilateral adnexa are unremarkable. No free intraperitoneal gas or fluid. No pathologically enlarged abdominal or pelvic lymphadenopathy. IMPRESSION: 1. 7 x 4 mm calcification at the site of a previously seen enhancing mass at the medial lower pole the left kidney which suggests dystrophic calcification post interval partial nephrectomy were ablation. No evident residual, locally recurrent or metastatic disease although sensitivity is lower on the noncontrast imaging. 2. Small uterine fibroid. Reviewed, dictated and finalized at location A. IMPRESSION: 1. 7 x 4 mm calcification at the site of a previously seen enhancing mass at th e medial lower pole the left kidney which suggests dystrophic calcification pos t interval partial nephrectomy were ablation. No evident residual, locally recu rrent or metastatic disease although sensitivity is lower on the noncontrast im aging. 2. Small uterine fibroid.
--- NOTE | ~2024-12-23 | XR_ITS ---
EXAMINATION: XR chest 2V 12/23/2024 14:53 INDICATION: Malignant neoplasm of the left kidney PROCEDURE: Two-view chest COMPARISON: Comparison to multiple prior studies sequentially, with oldest reviewed study dated 10/23/2009. FINDINGS: The lungs are clear. The cardiomediastinal silhouette is within normal limits. There are no pleural effusions. There is no pneumothorax suspected. There are Kemp rods overlying the lower thoracic spine. IMPRESSION: 1: NO ACUTE CARDIOPULMONARY DISEASE. Reviewed, dictated and finalized at location O.
--- OUTSIDE RECORDS SUMMARY | 2024-12-23 14:32 | XMS_ITS ---
Author Organization [facility] [address] [place] [id number] Care Team Providers Care Stud Driver Name Role Phone Isabella Avila MD Primary Care Provider Active Problems Problem Noted Date Diagnosed Date Insulin pump status 09/07/2024 Type 2 diabetes mellitus wit h stage 2 chronic kidney disease, with long-term current use of insulin 01/13/2023 Assessment & Plan (09/07/2024 2:11 PM CDT): Chronic problem. Managed by Dr Houston Nephropathy: On LUCA-I / ARB s : No. Last MA: 04/03/23 (25). Last creat/GFR: 03/23/24 GFR=50, CR=1.25. Assessment & Plan (03/23/2024 3:55 PM PLASTICS PATTERNMAKER): Chronic problem. Managed by Dr Houston. MAR 0903/2024. Nephropathy: On LUCA-I / ARB s : No. Last MA: 04/03/23 (25). Last creat/GFR: 04/03/23 GFR=54, CR=1.17. Had labs drawn today by PCP. Release signed to get copy of results. Assessment & Plan (01/22/2024 3:43 PM CDT): Chronic problem. Managed by Dr Houston. MAR 0903/2024. Nephropathy: On LUCA-I / ARB s : No. Last MA: 04/03/23 (25). Last creat/GFR: 04/03/23 GFR=54, CR=1.17. Assessment & Plan (12/09/2023 8:57 AM CDT): Chronic problem. Managed by Dr Houston. MAR 0903/2024. Saw her roughly 6-7 weeks ago. Nephropathy: On LUCA-I / ARB s : No. Last MA: 04/03/23 (25). Last creat/GFR: 04/03/23 GFR=54, CR=1.17. Overweight with body mass in dex (BMI) of 29 to 29.9 in adult 07/25/2022 Assessment & Plan (07/25/2022 3:26 PM CDT): Chronic problem. Increase activity as tolerated (chronic back pain). Discussed healthy diet and importance of regular physical activity (20- 30min/day, 150min/wk). Stage 3a chronic kidney disease 01/10/2021 Type 2 diabetes mellitus wit h hyperglycemia, with long-term current use of insulin 01/21/2020 Assessment & Plan (09/07/2024 3:06 PM CDT): Chronic problem, A1c uncontrolled but improved from 11.4% 03/23/24 to now 8.3%. Increase insulin: -increase glargine at bedtime from 24 to 30 units. If fasting morning blood sugars over 150 then increase 2 units weekly. -change your sliding scale: For blood sugars over 140: take 8 units For blood sugars over 180: take 10 units For blood sugars over 220: take 12 units For blood sugars over 260: take 14 units For blood sugars over 300: take 16 units If not eating at lunch: decrease above scale by 1/2. increase Ozempic from 1 to 2 mg weekly. UTD DM eye (03/09/[address] Larios) Will update MA/Cr.Verified that she uses [employer]. Aware to check results/results letter in [employer]. Will contact by phone if needed. Strive for regular exercise (30min most days) and diet (get at least 4-5 servings of fruit and veggies daily, avoid processed foods, increase lean protein intake and decrease carb portions as well as fruit juices, regular soda & desserts). Watch carbs and simple sugars. Check the blood sugar 2-3x/day if not wearing Dexcom G7. Check the feet daily for skin breakdown and infection. Assessment & Plan (03/23/2024 3:55 PM PLASTICS PATTERNMAKER): Chronic problem, A1c uncontrolled and worsened from 9.5% 01/22/24 to now 10.7%. increased stressors at home. Rec'd dexcom sensors last night. Will put insulin pump back on. Aware to come into office tomorrow morning if unable to get it programmed. Humalog via [employer] S[employer] insulin pump: BR 12a 0.8 CF 45 CR 12 Target 100 AIT 4 hours UTD DM eye 02/2024 (letter sent to get copy of report). Had labs drawn today by PCP. Release signed to get copy of results. Strive for regular exercise (30min most days) and diet (get at least 4-5 servings of fruit and veggies daily, avoid processed foods, increase lean protein intake and decrease carb portions as well as fruit juices, regular soda & desserts). Watch carbs and simple sugars. Check the blood sugar 2-3x/day if not wearing Dexcom. Check the feet daily for skin breakdown and infection. Assessment & Plan (01/22/2024 4:03 PM CDT): Chronic problem, A1c uncontrolled but improved from 12.4% 12/09/23 to now 9.5% today. Has not been checking BG before dinner & giving insulin. Will give some time after dinner & not using sliding scale (giving 18-20 units & becoming hypoglycemic overnoc). Stressed need to watch diet, check BG BEFORE eating & give appropriate insulin. Does not want to put pump back on at this time. Current medications: Levemir 22 units Ozempic 1 mg weekly Humalog twice daily with meals (only taking with dinner) For sugars 120-150, take 4 units 151-200, take 6 units 201-250, take 8 units Over 250, take 10 units UTD DM eye 02/2023. UTD on labs. Strive for regular exercise (30min most days) and diet (get at least 4-5 servings of fruit and veggies daily, avoid processed foods, increase lean protein intake and decrease carb portions as well as fruit juices, regular soda & desserts). Watch carbs and simple sugars. Check the blood sugar 2-3x/day if not wearing Dexcom. Check the feet daily for skin breakdown and infection. Assessment & Plan (12/09/2023 9:00 AM CDT): Chronic problem, uncontrolled and worsening A1c from 8.9% 04/03/23 to now 12.4% today. Has not been wearing pump nor Dexcom G7 d/t sweating off both appliances. Has used skin tac but not helping. Discussed overpatches. If not wearing pump--use the mealtime humalog shots. Please restart pump as soon as you can. Will have her return in 6 weeks d/t concerns with blood sugars & what insulin she's taking (keeps confusing levemir & humalog). Current medications: Levemir 24 units nightly Ozempic 1 mg weekly if not using pump use below sliding : Humalog -- has not used since off pump in August/September. For sugars under 150, none 151-200, take 6 units 201-250, take 8 units Over 250, take 10 units pump settings: Humalog via T Slim insulin pump: BR 12a 0.8 CF 45 CR 12 Target 100 AIT 4 hours UTD DM eye 02/2023. UTD on labs. Strive for regular exercise (30min most days) and diet (get at least 4-5 servings of fruit and veggies daily, avoid processed foods, increase lean protein intake and decrease carb portions as well as fruit juices, regular soda & desserts). Watch carbs and simple sugars. Check the blood sugar Dexcom G7. Check the feet daily for skin breakdown and infection. Assessment & Plan (04/03/2023 2:56 PM PLASTICS PATTERNMAKER): Chronic problem, uncontrolled but a1c dropped from 9.3% to now 8.7%. will contact Wilma plunkett [facility] re: pump orders. Mrs Acuña has been talking w/[employer] & would like to start the pump therapy. Contact info for [employer] on AVS for Mrs Acuña. Current medications: Levemir 22 units Ozempic 2 mg weekly Humalog before meals For sugars under 150, none 151-200, take 6 units 201-250, take 8 units Over 250, take 10 units UTD DM eye 02/2023. Will update labs today. Verified that she uses [employer]. Aware to check results/results letter in [employer]. Will contact by phone if needed. Strive for regular exercise (30min most days) and diet (get at least 4-5 servings of fruit and veggies daily, avoid processed foods, increase lean protein intake and decrease carb portions as well as fruit juices, regular soda & desserts). Watch carbs and simple sugars. Check the blood sugar Dexcom G7. Check the feet daily for skin breakdown and infection. Assessment & Plan (10/17/2022 4:09 PM CDT): Hba1c was Lab Results Component Value Date HGBA1C 9.3 10/17/2022 today, indicating poor, worsening DM control Goal Hba1c and blood glucose explained Diet and exercise were advised Prevention and treatment of hyypoglcyemia were discussed with the patient Blood glucose monitoring : Will try CGM with Dexcom G7 Patient was provided with samples and it was installed on her phone Adjustment to medications: The importance of blood glucose monitoring and taking NovoLog accordingly was explained again Patient to take 14 units of NovoLog with dinner which is the larger meal Also she was advised on taking NovoLog at breakfast and noon time, even if she is not eating, on a correctional scale Assessment & Plan (07/25/2022 3:25 PM CDT): Chronic problem, uncontrolled but a1c dropped from 8.7% to no 8.5%. Will increase ozempic from 0.5mg weekly to 1mg weekly. Discussed activity as she can tolerate (chronic back pain). Needs to scan Alfredo more often--not sufficient data. Reviewed download with her--able to see all the missing data. Had DM eye exam fall 2021 w/Dr Larios. Letter sent to get copy of results. Current medications: Levemir 22 units (increase by 2 units if FBS >150) Ozempic 0.5 mg weekly HL 8 units aC + 2:50 >150 (usually 8-14 units) If not eating use following scale: For sugars under 150, none 151-200, take 6 units 201-250, take 8 units Over 250, take 10 units Assessment & Plan (04/11/2022 3:52 PM PLASTICS PATTERNMAKER): Chronic problem, deteriorating. Told her to stop the cough medicine syrups with sugar, discussed alternative options. Increase Levemir to 22 units and increase by another 2 units if FBG >150. Sent a note to [facility] about starting the pump process. Also needs to check on cost of supplies since she has a high deductible plan and will owe this beginning of next year. Update MA/Cr. Assessment & Plan (11/01/2021 2:37 PM CDT): Chronic problem, not at goal but has not been checking for past 4 weeks. Information given on how to keep CGM on longer, and placed a new one today. Also sent in new meter and strips. No changes to medications. Tried to do POC lipid today but all sample tubes and patient left before we could do lab draw. Will complete next visit with routine labs. Assessment & Plan (08/02/2021 3:56 PM CDT): Chronic problem, significantly improved but now with hypoglycemia so not at goal. 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 Lower Levemir to 18 units for lows overnight. Lower HL aC to 8 units since she is lately much more active in afternoons doing house projects. If she becomes less active then may need adjustment. Recommend she check with [employer] again in next 4-5 months once she has met her deductible to see about cost. She may be able to get pump cheaper this year, but if she has high deductible plan then she will need to meet it again next year so she should look into her costs going forward. She understands. Assessment & Plan (06/07/2021 4:51 PM PLASTICS PATTERNMAKER): Hba1c was Lab Results Component Value Date HGBA1C 9.0 06/07/2021 today, indicating poor DM control Goal Hba1c and blood glucose explained Diet and exercise were advised Prevention and treatment of hyypoglcyemia were discussed with the patient Blood glucose monitoring : continue using FSL Adjustment to medications: Take Levemir , 20 units at bedtime . Take it even you are not eating If your bedtime sugars is under 150, have a bedtime snack and take the Levemir. Take Humalog 10 units with each meal For sugars over 150, take 12 units For sugars over 200, take 14 units For sugars over 250, take 16 units If you are not eating, and it is meal time , take Humalog as follows For sugars under 150, none 151-200, take 6 units 201-250, take 8 units Over 250, take 10 units Continue Ozempic 0.5 mg weekly Will start process for insulin pump Assessment & Plan (02/20/2021 12:31 PM CDT): Hba1c was Lab Results Component Value Date HGBA1C 9.7 02/20/2021 today, indicating poor DM control Goal blood glucose levels : 110-150 Target Hba1c : 7 BG monitoring : continue with FSL Prevention and treatment of hyypoglcyemia discussed. Insulin regimen adjustments: Take Levemir , 14 units every 12 hours , morning and bedtime Take Humalog 10 units with each meal For sugars over 150, take 12 units For sugars over 200, take 14 units For sugars over 250, take 16 units If you are not eating, and it is meal time , take Humalog as follows For sugars under 150, none 151-200, take 6 units 201-250, take 8 units Over 250, take 10 units Start Ozempic 0.5 mg weekly Assessment & Plan (11/16/2020 1:21 PM CDT): A1c worsening at 9.9. Continue Levemir 16 units. Increase Humalog to 16 bid ac. Advised to check on coverage of Dexcom with new insurance to see if better rainey than Alfredo 2. Assessment & Plan (08/15/2020 2:37 PM CDT): Hba1c was Lab Results Component Value Date HGBA1C 8.2 08/10/2020 today, indicating inadequate DM control Goal blood sugars in the 120-150 range , with Hb1c under 7.0 % was explained 1800 calorie, consistent carb diet recommended. No more than 30-45 grams of carbs per meal recommended, as well as avoiding high concentrated sweet drinks . 25-45 min daily exercise, combining both aerobic and resistance exercise recommended. The need to monitor blood glucose before meals and bedtime was discussed. Prevention and treatment of hyypoglcyemia discussed. Increase Trulicity to 3 mg weekly, and you finish your current supply , increase to 4.5 mg Increase the evening of Humalog, to 16 units ; stay on 14 units in the morning. Assessment & Plan (05/09/2020 10:05 AM PLASTICS PATTERNMAKER): A1c improved to 7.6. Continue current medication. Provided with Support[employer] 2 senor kit and instructed how to use ac/pc BG comparisons. BG goals reviewed. Assessment & Plan (01/24/2020 2:12 PM CDT): A1c 9.4. BG mid 100 range. Increase Levemir to 16 units. Schedule eye exam Other idiopathic scoliosis, thoracolumbar region 02/01/2019 Overview (02/01/2019): Added automatically from request for surgery [id number] Other secondary scoliosis, lumbar region 019 S/p nephrectomy 12/08/2018 Idiopathic scoliosis of thoracolumbar spine 06/26 Spondylosis of lumbar region without myelopathy or radiculopathy 07/10/2018 Chronic bilateral low back pain with bilateral s ciatica 06/15/2018 Assessment & Plan (09/28/2020 9:00 AM CDT): Assessment Status post fusion from T8-S1 and ilium fusion. Chronic pain. Plan I feel the claimant is only able to lift a maximum of 25 pounds for lifting, pushing or pulling. No bending, stooping or twisting at the waist. She is to only sit, stand or walk for an hour at a time and then will require brief position changes. Radiculopathy, lumbosacral region 06/15/2018 Bilateral leg pain 06/15/2018 Neuropathic pain 01/20/2018 Assessment & Plan (01/20/2018 3:53 PM CDT): Unclear etiology Start Nortriptyline Neurology consultation Hyperlipidemia associated with type 2 diabetes mark chawla 01/20/2018 Assessment & Plan (09/07/2024 2:09 PM CDT): Chronic problem, currently taking Atorvastatin 10mg. Last lipid panel: 03/23/24 LDL=57, FD=937. Assessment & Plan (03/23/2024 3:54 PM PLASTICS PATTERNMAKER): Chronic problem, currently taking Atorvastatin 10mg. Last lipid panel: 04/03/23 LDL=71, TG=78. Had labs drawn today by PCP. Release signed to get copy of results. Assessment & Plan (01/22/2024 3:09 PM CDT): Chronic problem, currently taking Atorvastatin 10mg. Last lipid panel: 04/03/23 LDL=71, TG=78. Assessment & Plan (12/09/2023 8:28 AM CDT): Chronic problem, currently taking Atorvastatin 10mg. Last lipid panel: 04/03/23 LDL=71, TG=78. Assessment & Plan (04/03/2023 2:30 PM PLASTICS PATTERNMAKER): Chronic problem, currently taking Atorvastatin 10mg. Last lipid panel: 11/08/21 EXC=111, LA=539. Will update labs today. Verified that she uses [employer]. Aware to check results/results letter in [employer]. Will contact by phone if needed. Assessment & Plan (10/17/2022 4:10 PM CDT): Chronic, well-controlled Continue statin therapy with atorvastatin Assessment & Plan (07/25/2022 3:23 PM CDT): Chronic problem, currently taking Atorvastatin 10mg. Last lipid panel: 11/08/21 JWG=327, HG=479. No changes at this time. Assessment & Plan (04/11/2022 3:50 PM PLASTICS PATTERNMAKER): Chronic problem. On statin therapy, no changes. Assessment & Plan (08/15/2020 2:38 PM CDT): Goal of treatment , LDL cholesterol less than 100 ( less than 70 in patients with history of heart attacks and / or strokes ) NonHDL cholesterol ( total cholesterol minus HDL cholesterol ) goal less than 130 ( less than 100 in patients with history of heart attacks and / or strokes ) Low cholesterol, low fat diet was discussed and advised. Daily exercise On statin therapy Lipids checked today Assessment & Plan (11/18/2019 2:32 PM CDT): Goal of treatment , LDL cholesterol less than 100 ( less than 70 in patients with history of heart attacks and / or strokes ) NonHDL cholesterol ( total cholesterol minus HDL cholesterol ) goal less than 130 ( less than 100 in patients with history of heart attacks and / or strokes ) Low cholesterol, low fat diet was discussed and advised. Daily exercise Assessment & Plan (06/08/2019 12:13 PM PLASTICS PATTERNMAKER): Goal of treatment , LDL cholesterol less than 100 ( less than 70 in patients with history of heart attacks and / or strokes ) NonHDL cholesterol ( total cholesterol minus HDL cholesterol ) goal less than 130 ( less than 100 in patients with history of heart attacks and / or strokes ) Low cholesterol, low fat diet was discussed and advised. Daily exercise On statin therapy Assessment & Plan (01/20/2018 3:53 PM CDT): Goal of treatment , LDL cholesterol less than 100 ( less than 70 in patients with history of heart attacks and / or strokes ) NonHDL cholesterol ( total cholesterol minus HDL cholesterol ) goal less than 130 ( less than 100 in patients with history of heart attacks and / or strokes ) Low cholesterol, low fat diet was discussed and advised. Daily exercise On statin therapy Hypertension associated with diabetes 11/21/2016 Overview (11/21/2016): Assessment & Plan (09/07/2024 2:09 PM CDT): Chronic problem, controlled on current Metoprolol 50mg daily No changes at this time. Assessment & Plan (03/23/2024 3:55 PM PLASTICS PATTERNMAKER): Chronic problem, controlled on current Metoprolol 50mg daily No changes at this time. Had labs drawn today by PCP. Release signed to get copy of results. Assessment & Plan (01/22/2024 3:09 PM CDT): Chronic problem, controlled on current Metoprolol 50mg daily No changes at this time. Assessment & Plan (12/09/2023 8:28 AM CDT): Chronic problem, controlled on current Metoprolol 50mg daily No changes at this time. Assessment & Plan (04/03/2023 2:49 PM PLASTICS PATTERNMAKER): Chronic problem, controlled on current Metoprolol 50mg daily No changes at this time. Will update labs today. Verified that she uses [employer]. Aware to check results/results letter in [employer]. Will contact by phone if needed. Assessment & Plan (07/25/2022 3:22 PM CDT): Chronic problem, controlled on current Metoprolol 25mg bid. No changes at this time. Assessment & Plan (11/16/2020 1:19 PM CDT): Controlled on current medications. Continue plan. Assessment & Plan (05/09/2020 10:06 AM PLASTICS PATTERNMAKER): Controlled on current medications. Continue plan. Assessment & Plan (01/24/2020 2:11 PM CDT): Controlled on current medications. Continue plan. Assessment & Plan (11/18/2019 2:31 PM CDT): Goal blood pressure is less than 140/85 Low salt diet was discussed andd recommended The importance of daily aerobic exercise was also emphasized. Check microalbumin Assessment & Plan (08/17/2019 11:36 AM CDT): Goal blood pressure is less than 140/85 Low salt diet recommended Daily aerobic exercise Continue current meds Assessment & Plan (06/08/2019 12:12 PM PLASTICS PATTERNMAKER): Goal blood pressure is less than 140/85 Low salt diet recommended Daily aerobic exercise Assessment & Plan (01/26/2019 10:33 AM CDT): Goal blood pressure is less than 140/85 Low salt diet recommended Daily aerobic exercise Continue current meds, including LUCA-I or ARB with cozaar Assessment & Plan (07/21/2018 12:33 PM CDT): Goal blood pressure is less than 140/85 Low salt diet recommended Daily aerobic exercise Continue current meds, including LUCA-I or ARB Check microalbumin Assessment & Plan (09/16/2017 4:08 PM CDT): Goal blood pressure is less than 140/85 Low salt diet recommended Daily aerobic exercise Continue current meds, including LUCA-I or ARB Assessment & Plan (06/24/2017 1:44 PM PLASTICS PATTERNMAKER): Goal blood pressure is less than 140/85 Low salt diet recommended Daily aerobic exercise Continue current meds, including LUCA-I or ARB Assessment & Plan (02/13/2017 1:42 PM CDT): Goal blood pressure is less than 140/85 Low salt diet recommended Daily aerobic exercise Continue current meds, including LUCA-I or ARB Assessment & Plan (11/21/2016 12:27 PM CDT): Goal blood pressure is less than 140/85 Low salt diet recommended Daily aerobic exercise Continue current meds, including LUCA-I or ARB Closed fracture of head of radius 07/28/2012 Renal cell carcinoma 12/12/2009 Abnormal weight loss 11/13/2009 Overview (08/08/2017): Description: 25# in 2.5 months Current Treatment and Therapy Plans No current plan information found. Past Treatment and Therapy Plans No past plan information found. Lifetime Dose Tracking * Chemical Lifetime Dose Automatic Entry Manual Entr y Fluoro Time 1.735 minutes 1.735 minutes 0 minutes Air kerma at the reference point (Ka,r) 52 mGy 5 2 mGy 0 mGy DLP 4,853 mGycm 4,853 mGycm 0 mGycm Resolved Problems Problem Noted Date Diagnosed Date Resolved Date Hypertension associated with stage 2 chronic kidney disease due to type 2 diabetes mellitus 01/13/2023 01/13/2023 Uncontrolled type 2 diabetes mellitus with hyperglycemia, with long-term current use of insulin 10/04/2016 01/22/2024 Assessment & Plan (11/18/2019 2:31 PM CDT): Hba1c was Lab Results Component Value Date HGBA1C 10.1 11/18/2019 today, indicating poor , worsening DM control 1800 calorie, consistent carb diet recommended. No more than 30-45 grams of carbs per meal recommended, as well as avoiding high concentrated sweet drinks . 25-45 min daily exercise, combining both aerobic and resistance exercise recommended. The need to monitor blood glucose before meals and bedtime was discussed. Prevention and treatment of hyypoglcyemia discussed. Insulin dose: Stay on Trulicity, once a week Increase levemir to 15 units at bedtime Take Humalog, 14 units before meals If not eating, for sugars over 150, take 6 unties For sugars over 200, take 8 units For sugars over 300, take 10 units Start Metformin, 500 mg twice a day, with meals Assessment & Plan (08/17/2019 11:36 AM CDT): Uncontrolled Test BG twice a day Stop Trulicity ( probably causing the nausea ) Increase levemir to 10 units once a day Take Humalog, 8 unit with supper. Assessment & Plan (06/08/2019 12:11 PM PLASTICS PATTERNMAKER): Hba1c was Lab Results Component Value Date HGBA1C 7.1 06/08/2019 today, indicating adequate DM control 1800 calorie, consistent carb diet recommended. No more than 30-45 grams of carbs per meal recommended, as well as avoiding high concentrated sweet drinks . 25-45 min daily exercise, combining both aerobic and resistance exercise recommended. The need to monitor blood glucose before meals and bedtime was discussed. Prevention and treatment of hyypoglcyemia discussed. Insulin dose: Continue current regimen Assessment & Plan (01/26/2019 10:32 AM CDT): Hba1c was Lab Results Component Value Date HGBA1C 7.6 01/26/2019 today, indicating Sub-optimal DM control 1800 calorie, consistent carb diet recommended. No more than 30-45 grams of carbs per meal recommended, as well as avoiding high concentrated sweet drinks . 25-45 min daily exercise, combining both aerobic and resistance exercise recommended. The need to monitor blood glucose before meals and bedtime was discussed. Prevention and treatment of hyypoglcyemia discussed. Insulin dose: Continue current Focus on low carb diet. Assessment & Plan (07/21/2018 12:32 PM CDT): Hba1c was Lab Results Component Value Date HGBA1C 6.9 07/21/2018 today, indicating better DM control 1800 calorie, consistent carb diet recommended 25-45 min daily exercise, combining both aerobic and resistance exercise recommended. The need to monitor blood glucose before meals and bedtime was discussed. Dose of basal and prandial insulin adjusted as follows: Levemir has been lowered to 6 u Prevention and treatment of hyypoglcyemia discussed. Assessment & Plan (06/24/2017 1:44 PM PLASTICS PATTERNMAKER): Your Hba1c today was: 8.9 meaning a 3 month average sugar of : 210 Your goal hba1c is under 7.0 to prevent intermodal customer service diabetes complications ( eye , kidney and nerve damage ) . Your goal sugars are in the 90-130 range Daily aerobic ( walking, riding a bike, swimming ) and resistance exercises ( light weight lifting, resistance band stretching ) for at least 30 minutes is recommended If you can not walk, chair exercises is very acceptable. As little as 15-20 minutes exercise , in one or two sessions a day, is still very helpful and will help to improve your diabetes control . Eat small portion meals, no more than 1800 calories Diet Try to eat not more than than 2-3 servings of carbs ( starches ) wiith your meals. Avoid soft drinks, including regular sodas , fruit juices and sweetened tea. Drink water instead. Eat plenty of green and leafy vegetables, including salads. Take your medications regularly. Monitor your sugar levels with finger sticks regularly and keep a log sheet or book. Bring your sugar meter and /or a log book or log sheet to every office visit. Restart a low dose Levemir, 8 units in the morning. Start Farxiga, 5 mg daily. Assessment & Plan (02/13/2017 1:42 PM CDT): Hba1c was 7.0 today, indicating better DM control 1800 calorie, consistent carb diet recommended 30 min daily aerobic and resistance exercise recommended Prevention and treatment of hyypoglcyemia discussed. Blood glucose monitoring with fingers sticks 1-2 x day . Foot care was discussed. Assessment & Plan (10/04/2016 10:06 AM CDT): hba1c over 9.0 today Your Goal hba1c is under 7.0 Check sugars before breakfast and dinner and fax logs weekly. Take Levemir, 20 units at bedtime Increase dose by 3 units every 3 days until morning sugars are under 120. Take Humalog, 15 units before each meal For sugars over 150, take 20 units For sugars over 200, take 25 units For sugars over 250, take 30 units For sugars over 300, take 35 units. Start Trulicity, once a week 30-40 min daily aerobic and resistance exercise 1500 calorie diet, no more than 3 carbs per meal. Follow up in 4 weeks.
--- OUTSIDE RECORDS SUMMARY | 2024-12-23 14:32 | XMS_ITS | Encounter Summary ---
Author Organization [facility] Address [address] [place] [phone] Phone Care Team Providers Care Manager Unix Name Role Phone Isabella Avila MD Primary Care Provider [phone] Reason for Visit * Reason Comments Med Refill Encounter Details Date Type Department Care Team (Late Contact Info) Description 09/29/2022 Refill [facility] [address] [place] [address] [phone] Simi Dwyer, [employer] [address] [address] Social History Tobacco Use Types Packs/Day Years Used Date Smoking Tobacco: Never Smokeless Tobacco: Never Alcohol Use Standard Drinks/Week Comments Never 0 (1 standard drink = 0.6 oz pur e alcohol) AUDIT-C Answer Date Recorded Frequency of Alcohol Consumption Never 12/08/2018 Average Number of Drinks Not on file 019 Frequency of Binge Drinking Not on file 11/26 Comments Unknown Sex and Gender Information Value Date Recorded Sex Assigned at Not on file Legal Sex Female 10:33 AM MDT Gender Identity Not on file Sexual Orientation Not on file documented as of this encounter Miscellaneous Notes * Telephone Encounter - Nisha Lucero MA - 09/30/2022 2:16 PM CDT Patient needs a follow up appointment documented in this encounter Plan of Treatment Upcoming Encounters Date Type Department Care Team (Late Contact Info) Description 01/06/2025 11:00 AM CDT Office Visit [facility] [address] [place] [id number] Simi Dwyer, [employer] [address] [facility] [address] [place] [address] documented as of this encounter Visit Diagnoses Not on filedocumented in this encounter Care Teams Manager Unix Relationship Specialty Start Date End Date Isabella Avila MD [address] [facility] [address] [place] [address] PCP - General Internal Medicine 12/15/18 documented as of this encounter
--- OUTSIDE RECORDS SUMMARY | 2024-12-23 14:32 | XMS_ITS | Clinical Summary ---
Author Organization [facility] [address] [place] [id number] Care Team Providers Care Rig Welder Name Role Phone Isabella Avila MD Primary Care Provider Allergies No known active allergies Medications CYANOCOBALAMIN , VITAMIN B-12, ORALIndication s:OTC Take 1 Dose by mouth nightly Active diphenhydramin e HCl (BENADRYL ALLERGY ORAL) Take 1 Dose by mouth as needed Active cholecalcifero l (VITAMIN D-3) 5,000 unit capsuleIndicat ions:Vitamin D Deficiency Take 1 capsule (5,000 Units total) by mouth nightly Active gabapentin (NEURONTIN) 300 mg capsuleIndicat ions:Postopera tive Acute Pain Increase as directed up to 3 tablets by mouth 3 times per day 270 capsule 2 10/08/19 20 Active albuterol HFA (PROVENTIL HFA,VENTOLIN HFA,PROAIR HFA) 90 mcg/actuation inhaler INHALE 1 PUFF BY MOUTH EVERY 4 HOURS NEEDED FOR SHORTNESS OF BREATH OR WHEEZING 07/03/19 22 Active polysaccharide iron complex (NU-IRON) 150 mg iron capsule Poly-Iron 150 mg iron capsule TAKE 1 CAPSULE BY MOUTH DAILY Active traZODone (DESYREL) 50 mg tablet Take 1 tablet (50 mg total) by mouth nightly 07/03/19 22 Active triamcinolone (KENALOG) 0.1 % cream APPLY TOPICALLY TO THE AFFECTED AREA TWICE DAILY 06/29/19 22 Active terbinafine (LamiSIL) 250 mg tablet Take 1 tablet (250 mg total) by mouth daily 08/24/19 22 Active lancets 31 gauge misc Use to check sugars 4-5 times a day as needed 400 each 3 11/02/19 22 Active OneTouch Delica Plus Lancet 30 gauge misc USE TO CHECK BLOOD GLUCOSE 4 TIMES A DAY 100 each 3 01/18/20 22 Active clotrimazole-b etamethasone (LOTRISONE) cream APPLY TO FEET TWICE DAILY FOR 3 WEEKS 01/23/20 22 Active omeprazole (PriLOSEC) 40 mg capsule omeprazole 40 mg capsule,delaye d release TAKE 1 CAPSULE BY MOUTH DAILY Active blood glucose diagnostic (OneTouch Verio test strips) strip Dx: E11.65 insulin dependent. CHECK BLOOD SUGAR FOUR TIMES A DAY OR DIRECTED 400 strip 3 03/22/20 22 Active metoprolol tartrate (LOPRESSOR) 50 mg immediate release tablet TAKE 1 TABLET BY MOUTH 1 TIME EACH DAY. 04/01/[address] (CYMBALTA) 60 mg capsule Take 1 capsule (60 mg total) by mouth 2 (two) times a day 03/22/20 22 Active fluticasone propionate (FLONASE) 50 mcg/actuation nasal spray 1 spray daily 03/18/20 22 Active benzonatate (TESSALON) 100 mg capsule TAKE 2 CAPSULES BY MOUTH THREE TIMES A DAY NEEDED FOR COUGH 03/18/20 22 Active azelastine (ASTELIN) 137 mcg (0.1 %) nasal spray 04/10/20 22 Active QuickVue At-Home COVID-19 Test kit USE DIRECETED 07/04/19 23 Active oxyCODONE (ROXICODONE) 10 mg tablet TAKE 1 TABLET BY MOUTH EVERY 6 HOURS NEEDED FOR PAIN, SEVERE 07/09/19 23 Active hydrOXYzine (ATARAX) 10 mg tablet Take 1 tablet (10 mg total) by mouth 2 (two) times a day 03/27/20 23 Active Zenpep 40,000-126,000 - 168,000 unit per capsuleIndicat ions:Type 2 diabetes mellitus with hyperglycemia, with long-term current use of insulin (HCC) TAKE 1 CAPSULE 3 TIMES A DAY BY MOUTH WITH MEALS FOR 90 DAYS. 270 capsule 2 11/17/19 24 Active nitrofurantoin (MACRODANTIN) 100 mg capsule Take 1 capsule (100 mg total) by mouth 2 (two) times a day 11/11/19 24 Active estradioL (ESTRACE) 0.01 % (0.1 mg/gram) vaginal cream PLEASE SEE ATTACHED FOR DETAILED DIRECTIONS 02/05/[address] (CYMBALTA) 30 mg capsule Take 1 capsule (30 mg total) by mouth nightly 03/15/20 24 Active promethazine (PHENERGAN) 12.5 mg tablet Take 1 tablet (12.5 mg total) by mouth every 6 (six) hours as needed 05/31/19 25 Active NovoLOG 100 unit/mL (3 mL) pen for injectionIndic ations:Type 2 diabetes mellitus with hyperglycemia, with long-term current use of insulin ([facility]) Inject 8-16 Units under the skin 3 (three) times a day before meals 45 mL 3 09/08/19 25 026 Active pen needle, diabetic 32 gauge x 5/32 needleIndicati ons:Type 2 diabetes mellitus with hyperglycemia, with long-term current use of insulin ([facility]) Use to inject insulin 4 times daily 400 each 3 09/08/19 25 Active semaglutide (Ozempic) 2 mg/dose (8 mg/3 mL) pen injector injectionIndic ations:type 2 diabetes mellitus Inject 2 mg under the skin every 7 days 9 mL 3 09/08/19 25 026 Active atorvastatin (LIPITOR) 10 mg tabletIndicati ons:Type 2 diabetes mellitus with hyperglycemia, with long-term current use of insulin ([facility]) TAKE 1 TABLET BY MOUTH EVERY DAY 90 tablet 3 10/12/19 25 Active insulin glargine 100 unit/mL (3 mL) pen for injectionIndic ations:Type 2 diabetes mellitus with hyperglycemia, with long-term current use of insulin ([facility]) Inject 36 Units under the skin nightly Dx E11.65 45 mL 2 10/15/19 25 026 Active blood-glucose sensor (Dexcom G7 Sensor) deviceIndicati ons:Type 2 diabetes mellitus with hyperglycemia, with long-term current use of insulin ([facility]) USE FOR BLOOD GLUCOSE MONITORING. CHANGE SENSOR EVERY 10 DAYS DX: E11.65 9 each 3 12/15/19 25 Active insulin glargine 100 unit/mL (3 mL) pen for injectionIndic ations:Type 2 diabetes mellitus with hyperglycemia, with long-term current use of insulin ([facility]) INJECT 20-22 UNITS UNDER THE SKIN NIGHTLY DX E11.65 15 mL 2 12/18/19 Active blood-glucose sensor (Dexcom G7 Sensor) deviceIndicati ons:Type 2 diabetes mellitus with hyperglycemia, with long-term current use of insulin (HCC) USE FOR BLOOD GLUCOSE MONITORING. CHANGE SENSOR EVERY 10 DAYS Dx: E11.65 3 each 4 07/06/19 25 025 Discontinued Active Problems Problem Noted Date Diagnosed Date Insulin pump status 09/07/2024 Type 2 diabetes mellitus wit h stage 2 chronic kidney disease, with long-term current use of insulin 01/13/2023 Assessment & Plan (09/07/2024 2:11 PM CDT): Chronic problem. Managed by Dr Houston Nephropathy: On LUCA-I / ARB s : No. Last MA: 04/03/23 (). Last creat/GFR: 03/23/24 GFR=50, CR=1.25. Assessment & Plan (03/23/2024 3:55 PM PRINTER SLOTTER FEEDER): Chronic problem. Managed by Dr Houston. MAR [...] Larios) Will update MA/Cr.Verified that she uses [employer]. Aware to check results/results letter in [employer]. Will contact by phone if needed. Strive [...] infection. Assessment & Plan (03/23/2024 3:55 PM PRINTER SLOTTER FEEDER): Chronic problem, A1c uncontrolled and worsened from [...] infection. Assessment & Plan (04/03/2023 2:56 PM PRINTER SLOTTER FEEDER): Chronic problem, uncontrolled but a1c dropped from 9.3% to now 8.7%. will contact Wilma at [facility] re: pump orders. Mrs Birch has been talking w/Jerald & would like to start the pump therapy. Contact info for Jerald on AVS for Mrs Birch. Current medications: Levemir 22 units Ozempic 2 mg weekly Humalog before meals For sugars under 150, none 151-200, take 6 units 201-250, take 8 units Over 250, take 10 units UTD DM eye 02/2023. Will update labs today. Verified that she uses mychart. Aware to check results/results letter in [employer]. Will contact by phone if needed. Strive [...] units Assessment & Plan (04/11/2022 3:52 PM PRINTER SLOTTER FEEDER): Chronic problem, deteriorating. Told her to stop the cough medicine syrups with sugar, discussed alternative options. Increase Levemir to 22 units and increase by another 2 units if FBG >150. Sent a note to Jerald gordon about starting the pump process. Also needs [...] understands. Assessment & Plan (06/07/2021 4:51 PM PRINTER SLOTTER FEEDER): Hba1c was Lab Results Component Value Date [...] morning. Assessment & Plan (05/09/2020 10:05 AM PRINTER SLOTTER FEEDER): A1c improved to 7.6. Continue current medication. Provided with Alfredo 2 senor kit and instructed how to use ac/pc BG comparisons. BG goals reviewed. Assessment & Plan (01/24/2020 2:12 PM CDT): A1c 9.4. BG mid 100 range. Increase Levemir to 16 units. Schedule eye exam Other idiopathic scoliosis, thoracolumbar region 02/01/2019 Overview (02/01/2019): Added automatically from request for surgery [id number] Other secondary scoliosis, lumbar region 019 S/p [...] Atorvastatin 10mg. Last lipid panel: 03/23/24 LDL=57, NQ=003. Assessment & Plan (03/23/2024 3:54 PM PRINTER SLOTTER FEEDER): Chronic problem, currently taking Atorvastatin 10mg. Last [...] TG=78. Assessment & Plan (04/03/2023 2:30 PM PRINTER SLOTTER FEEDER): Chronic problem, currently taking Atorvastatin 10mg. Last lipid panel: 11/08/21 SUY=973, CK=718. Will update labs today. Verified that she uses [employer]. Aware to check results/results letter in [employer]. Will contact by phone if needed. Assessment & Plan (10/17/2022 4:10 PM CDT): Chronic, well-controlled Continue statin therapy with atorvastatin Assessment & Plan (07/25/2022 3:23 PM CDT): Chronic problem, currently taking Atorvastatin 10mg. Last lipid panel: 11/08/21 XNI=640, CZ=031. No changes at this time. Assessment & Plan (04/11/2022 3:50 PM PRINTER SLOTTER FEEDER): Chronic problem. On statin therapy, no changes. [...] exercise Assessment & Plan (06/08/2019 12:13 PM PRINTER SLOTTER FEEDER): Goal of treatment , LDL cholesterol less [...] time. Assessment & Plan (03/23/2024 3:55 PM PRINTER SLOTTER FEEDER): Chronic problem, controlled on current Metoprolol 50mg [...] time. Assessment & Plan (04/03/2023 2:49 PM PRINTER SLOTTER FEEDER): Chronic problem, controlled on current Metoprolol 50mg daily No changes at this time. Will update labs today. Verified that she uses [employer]. Aware to check results/results letter in [employer]. Will contact by phone if needed. Assessment & Plan (07/25/2022 3:22 PM CDT): Chronic problem, controlled on current Metoprolol 25mg bid. No changes at this time. Assessment & Plan (11/16/2020 1:19 PM CDT): Controlled on current medications. Continue plan. Assessment & Plan (05/09/2020 10:06 AM PRINTER SLOTTER FEEDER): Controlled on current medications. Continue plan. Assessment [...] meds Assessment & Plan (06/08/2019 12:12 PM PRINTER SLOTTER FEEDER): Goal blood pressure is less than 140/85 [...] ARB Assessment & Plan (06/24/2017 1:44 PM PRINTER SLOTTER FEEDER): Goal blood pressure is less than 140/85 [...] Overview (08/08/2017): Description: 25# in 2.5 months Resolved Problems Problem Noted Date Diagnosed Date [...] supper. Assessment & Plan (06/08/2019 12:11 PM PRINTER SLOTTER FEEDER): Hba1c was Lab Results Component Value Date [...] discussed. Assessment & Plan (06/24/2017 1:44 PM PRINTER SLOTTER FEEDER): Your Hba1c today was: 8.9 meaning a 3 month average sugar of : 210 Your goal hba1c is under 7.0 to prevent intermediate diabetes complications ( eye , kidney and [...] per meal. Follow up in 4 weeks. Encounters Date Type Department Care Team Description 10/14/2024 Telephone [facility] [address] [address] Terra Kwon LPN from Last 3 Months Surgical History Surgery Date Site/Laterality Comments NEPHRECTOMY 04/28/1967 - 1968 Right left kidney partially removed 2009 ABDOMINAL SURGERY 04/28/2009 - 2010 Partial Nephrectomy SPINAL FUSION FOOT SURGERY BACK SURGERY NEUROBLASTOMA EXCISION Right Kidney Medical History Medical History Date Comments Hypertension Low back pain Chronic pain disorder Diabetes mellitus (HCC) Kidney stone Allergic rhinitis Type 2 diabetes mellitus Status post radiation therapy 1967 ri ght kidney cancer Status post chemotherapy 1967 Neuroblastoma, renal (HCC) 1967, 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, partial left kidney 2009 Renal cell carcinoma (HCC) Hyperlipidemia PONV (postoperative nausea and vomiting) Depression Covid 03/28/2022 Family History Medical History Relation Name Comments Diabetes Father Cancer Other Gout Other Hypertension Other Anesthesia problems Neg Hx Relation Name Status Comments Father Other Social History Tobacco Use Types Packs/Day Years Used Date Smoking Tobacco: Never Smokeless Tobacco: Never Tobacco Cessation:Counseling Given: Not Answered Alcohol Use Standard Drinks/Week Comments Yes 0 (1 standard drink = 0.6 oz pur e alcohol) rare AUDIT-C Answer Date Recorded Frequency of Alcohol Consumption Not on file 02/06/2022 Q2: How many drinks containi ng alcohol do you have on a typical day when you are drinking? 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 Not on file Not on file Obstetrics History Last Filed Vital Signs Vital Sign Reading Time Taken Comments Blood Pressure 142/84 09/07/2024 2:09 PM CDT Pulse 82 09/07/2024 2:09 PM CDT Temperature 37.1 C (98.7 F) 02/06/2022 3:00 PM CDT Respiratory Rate 16 09/07/2024 2:09 PM CDT Oxygen Saturation 97% 02/06/2022 3:00 PM CDT Inhaled Oxygen Concentration - - Weight 78 kg (172 lb) 09/07/2024 2:09 PM CDT Height 155.5 cm (5' 1.22) 09/07/2024 2:09 PM CD T Body Mass Index 32.27 09/07/2024 2:09 PM CDT Plan of Treatment Health Maintenance Due Date Last Done Comments Breast Cancer Screening-Mammogram 1964 Cervical Cancer Screening 1964 Colon Cancer Screening-Colonoscopy 1964 Hepatitis C Screening 1964 DTaP/Tdap/Td Vaccine (1 - Tdap) 1975 Hepatitis B Screening 1982 Regular Well Visit/Exam 18-64 1982 Pneumococcal vaccine <65 (1 of 2 - PCV) 1983 Zoster Vaccine (1 of 2) 2014 Depression Screening 06/07/2022 06/07/2021, 02/20/2021, 09/21/2020, Additional history exists Influenza Vaccine (#1) 2024 02/21/2018 Dilated Eye Exam 03/09/2025 03/09/2024, 11/2022, 02/27/2021, Additional history exists Hemoglobin A1C 03/10/2025 09/07/2024, 02/27, 03/23/2024, Additional history exists Lipid Panel 03/23/2025 03/23/2024, 1210/2022, 11/08/2021, Additional history exists eGFR 03/23/2025 03/23/2024, 120 10/2022, 05/07/2022, Additional history exists Albumin Creatinine Ratio, Urine 09/07/2025 09/07/2024, 04/03/2023, 05/07/2022, Additional history exists Foot Exam 09/07/2025 09/07/2024, 12/0 10/2022, 11/01/2021, Additional history exists Medical Devices Implanted Type Area Linen Room Worker Device Identifier Shelf Expiration Date Model / Serial / Lot Medtronic Sofamor Danek [id number] Infuse 18mm 26mm Absorbable Sponge Sterile Water Syringe Needle - [id number] Implanted:Qty: 1 on 06/14/2019 by Fam Aragon MD at [facility] N/A: Spine Lumbar Medtronic Inc 08/26/2020 [id number] / / [id number] Medtronic Sofamor Danek [id number] Solera Cd Horizon 6.5mm 55mm Multiaxial Spine Screw Bone Cocr - [id number] Implanted:Qty: 2 on 06/14/2019 by Fam Aragon MD at [facility] N/A: Spine Lumbar Medtronic Inc [id number] / / Medtronic Sofamor Danek [id number] Legacy 7.5mm 70mm Closed Multiaxial Iliac Spine Screw Bone - [id number] Implanted:Qty: 1 on 06/14/2019 by Fam Aragon MD at [facility] N/A: Spine Lumbar Medtronic Inc [id number] / / Medtronic Sofamor Danek [id number] 5.5mm 80mm 7.5mm Iliac Spine Screw Bone Titanium Cmas - [id number] Implanted:Qty: 1 on 06/14/2019 by Fam Aragon MD at [facility] N/A: Spine Lumbar Medtronic Inc [id number] / / Medtronic Sofamor Danek [id number] Cd Horizon 5.5mm 20mm Closed Ilium Medium Connector Willie Titanium - [id number] Implanted:Qty: 2 on 06/14/2019 by Fam Aragon MD at [facility] N/A: Spine Lumbar Medtronic Inc [id number] / / Medtronic Inc [id number] 5.5mm 10mm Closed Lateral Spine Medium Connector Willie Titanium - [id number] Implanted:Qty: 2 on 06/14/2019 by Fam Aragon MD at [facility] N/A: Spine Lumbar Medtronic Inc [id number] / / Medtronic Sofamor Danek [id number] Cd Horizon Break Off Spinal Screw Set Titanium Nonsterile 5.5 Mm - [id number] Implanted:Qty: 18 on 06/14/2019 by Fam Aragon MD at [facility] N/A: Spine Lumbar Medtronic Inc [id number] / / Medtronic Sofamor Danek [id number] .25mm 32mm Breakoff Hexagonal Head Spine Iliac Screw Set Titanium - [id number] Implanted:Qty: 6 on 06/14/2019 by Fam Aragon MD at [facility] N/A: Spine Lumbar Medtronic Inc [id number] / / Medtronic Sofamor Danek [id number] Mastergraft Block Void Filler Substitute 20ml Bone Graft Matrix - [id number] Implanted:Qty: 1 on 06/14/2019 by Fam Aragon MD at [facility] Medtronic Inc [id number] / / Medtronic Inc [id number] Longitude Ii 5.5mm 500mm Straight Willie Spinal Cocr Molybdenum - [id number] Implanted:Qty: 2 on 06/14/2019 by Fam Aragon MD at [facility] N/A: Spine Lumbar Medtronic Inc [id number] / / Medtronic Sofamor Danek [id number] Infuse 18mm 26mm Absorbable Sponge Sterile Water Syringe Needle - [id number] Implanted:Qty: 1 on 06/14/2019 by Fam Aragon MD at [facility] N/A: Spine Lumbar Medtronic Inc 08/26/2020 [id number] / / [id number] Medtronic Sofamor Danek [id number] Infuse 18mm 26mm Absorbable Sponge Sterile Water Syringe Needle - [id number] Implanted:Qty: 1 on 06/14/2019 by Fam Aragon MD at [facility] N/A: Spine Thoracic Medtronic Inc 08/26/2020 [id number] / / [id number] Tissue Bone Void Filler Acupac Plus 100cc - [id number] - [id number] Implanted:Qty: 1 on 06/14/2019 by Fam Aragon MD at [facility] N/A: Spine Lumbar [employer] 01/26/2024 [id number] / [id number] / Medtronic Sofamor Danek [id number] Mastergraft Matrix Block Extension Void Filler Substitute 10ml - [id number] Implanted:Qty: 1 on 06/14/2019 by Fam Aragon MD at [facility] N/A: Spine Lumbar Medtronic Inc [id number] / / Medtronic Sofamor Danek [id number] Solera Cd Horizon 5.5mm 40mm Multiaxial Spine Screw Bone Cocr - [id number] Implanted:Qty: 11 on 06/14/2019 by Fam Aragon MD at [facility] N/A: Spine Lumbar Medtronic Inc [id number] / / Medtronic Sofamor Danek [id number] Solera Cd Horizon 4.5mm 40mm Multiaxial Spine Screw Bone Cocr - [id number] Implanted:Qty: 2 on 06/14/2019 by Fam Aragon MD at [facility] N/A: Spine Lumbar Medtronic Inc [id number] / / Medtronic Sofamor Danek [id number] Solera Cd Horizon 6.5mm 40mm Multiaxial Spine Screw Bone Cocr - [id number] Implanted:Qty: 1 on 06/14/2019 by Fam Aragon MD at [facility] N/A: Spine Lumbar Medtronic Inc [id number] / / Medtronic Sofamor Danek [id number] Solera Cd Horizon 6.5mm 45mm Multiaxial Spine Screw Bone Cocr - [id number] Implanted:Qty: 2 on 06/14/2019 by Fam Aragon MD at [facility] N/A: Spine Lumbar Medtronic Inc [id number] / / Procedures Procedure Name Priority Date/Time Associated Diagnosis Comments ALBUMIN CREATININE RATIO, URINE Routine 09/07/2024 5:00 PM CDT Type 2 diabetes mellitus with hyperglycemia, with long-term current use of insulin (HCC) POCT HEMOGLOBIN A1C Routine 09/07/2024 2 :13 PM CDT Type 2 diabetes mellitus with hyperglycemia, with long-term current use of insulin (HCC) COMPREHENSIVE METABOLIC PANEL Routine 03/23/2024 2:54 PM PRINTER SLOTTER FEEDER LIPID PANEL Routine 03/23/2024 2:54 PM PRINTER SLOTTER FEEDER DIABETES EYE EXAM Routine 03/09/2024 7:39 AM PRINTER SLOTTER FEEDER from Last 3 Months or Most Recently Relevant to Health Maintenance Results * Albumin Creatinine Ratio, Urine (09/07/2024 5:00 PM CDT) [facility] Albumin Ur 29.1 mg/L Comment: Interpretive Data No reference range established. Current interpretive data was last revised 2018. Creatinine Ur 158.2 mg/dL [facility] Comment: Interpretive Data No reference range established. Current interpretive data was last revised 2018. Albumin Creatinine Ratio, Ur 18 1 - 29 mg/g LUPE Urine 09/07/2024 5:00 PM CDT 09/07/2024 8:48 PM CDT Elvia Garcia SECURITY COORDINATOR LAB URINE ORDERABLES Indy l Result [facility] [address] [place] [address] * (ABNORMAL) POCT hemoglobin A1c (09/07/2024 2:13 PM CDT) [facility] Hemoglobin A1C, POC 8.3(A) 4.0 - 5.6 % Blood 09/07/2024 2:13 PM CDT Elvia Garcia SECURITY COORDINATOR POINT OF CARE TEST ORDERA BLES Final Result * Lipid panel (03/23/2024 2:54 PM PRINTER SLOTTER FEEDER) [facility] SCRIBED Cholesterol, Total 146 100 - 199 EXTERNAL LAB SCRIBED HDL 66 >39 - NA EXTERNAL LAB SCRIBED LDL 57 0 - 99 EXTERNAL LAB SCRIBED Triglycerides 135 0 - 149 EXTERNAL LAB Blood 03/23/2024 2:54 PM PRINTER SLOTTER FEEDER Historical Provider LAB BLOOD ORDERABLES Edit ed Result - Final EXTERNAL LAB * (ABNORMAL) Comprehensive metabolic panel (03/23/2024 2:54 PM PRINTER SLOTTER FEEDER) SCRIBED Sodium 136 134 - 144 mmol/L EXTERNAL LAB SCRIBED Potassium 5.5(A) 3.5 - 5.2 mmol/L EXTERNAL LAB SCRIBED Chloride 98 96 - 106 mmol/L EXTERNAL LAB SCRIBED Carbon Dioxide 26 20 - 29 mmol/L EXTERNAL LAB SCRIBED Urea Nitrogen (BUN) 17 6 - 24 mg/dl EXTERNAL LAB SCRIBED Creatinine 1.25(A) 0.57 - 1.00 mg/dl EXTERNAL LAB SCRIBED Glucose 276(A) 70 - 99 mg/dl EXTERNAL LAB SCRIBED Calcium 9.9 8.7 - 10.2 mg/dl EXTERNAL LAB SCRIBED Bilirubin 0.6 0.0 - 1.2 mg/dl EXTERNAL LAB SCRIBED Plasma Protein 6.9 6.0 - 8.5 g/dl EXTERNAL LAB SCRIBED Albumin 4.0 3.8 - 4.9 g/dl EXTERNAL LAB SCRIBED Alkaline Phosphatase 143(A) 44 - 121 Units/L EXTERNAL LAB SCRIBED Alanine Transaminase (ALT) 20 0 - 32 Units/L EXTERNAL LAB SCRIBED Aspartate Transaminase (AST) 22 0 - 40 Units/L EXTERNAL LAB SCRIBED eGFR in NonAfrican Latvian 50 >59 - NA EXTERNAL LAB Blood 03/23/2024 2:54 PM PRINTER SLOTTER FEEDER Historical Provider LAB BLOOD ORDERABLES Edit ed Result - Final EXTERNAL LAB * (ABNORMAL) DIABETES EYE EXAM (03/09/2024 7:39 AM PRINTER SLOTTER FEEDER) Historical Provider HEALTH MAINTENANCE Final Result from Last 3 Months or Most Recently Relevant to Health Maintenance Insurance [place] CHO[place] [employer] [facility] WORKERS COMPENSATION [facility] Advance Directives For more information, please contact: [phone] * Full Code (Latest Code Status on File) Date Activated Date Inactivated Comments 06/14/2019 2:06 PM 06/23/2019 7:06 PM Care Teams Rig Welder Relationship Specialty Start Date End Date Isabella Avila MD [address] [facility] [address] [place] [id number] PCP - General Family Medicine 10/03/16
--- OUTSIDE RECORDS SUMMARY | 2024-12-23 14:32 | XMS_ITS | Clinical Summary ---
Author Organization [facility] Address [address] [place] [address] Care Team Providers Care Salesforce Trainer Name Role Phone Unavailable Primary Care Provider Unavailabl e Source Comments [facility],non-owned Affiliates and Associated Physician Practices is amultiple site organization consisting of ambulatory clinics and hospital sitesin [place], [place], [place] and [place]. This disclosure is being madepursuant to the Care Everywhere program and may not contain all information available regarding this patient. Last updated 18.[facility] [employer] Social History Tobacco Use Types Packs/Day Years Used Date Smoking Tobacco: Never Assessed Comments Unknown Sex and Gender Information Value Date Recorded Sex Assigned at Not on file Legal Sex Female 3:00 PM CDT Gender Identity Not on file Sexual Orientation Not on file Plan of Treatment Health Maintenance Due Date Last Done Comments COLOGUARD (AGES 45-75) - COL ON CA SCREENING 1964 COLON MONITORING 1964 COLONOSCOPY - COLON CA SCREENING 1964 CT COLONOGRAPHY - COLON CA SCREENING 1964 Colorectal Cancer Screening 1964 FIT - COLON CA SCREENING 1964 FLEX SIG - COLON CA SCREENING 1964 LIPID TESTING 1964 MAMMOGRAM 1964 HIV SCREENING 1979 HEPATITIS C SCREENING 04/23/1982 DTAP/TDAP/TD VACCINES (1 - Tdap) 1983 PNEUMOCOCCAL VACCINE 50+ (1 of 1 - PCV) 2014 ZOSTER VACCINE (1 of 2) 2014 COVID-19 VACCINE (1 - 2023-2 5 season) 2023 DEPRESSION SCREENING 04/28/2024 INFLUENZA VACCINE (#1) 2024 Respiratory Syncytial Virus (RSV) Vaccine Pt: or over 60 yrs (1 - 1-dose 75+ series) 2039 HEPATITIS B VACCINE Aged Out No longe r eligible based on patient's age to complete this topic HIB VACCINE Aged Out No longer eligi ble based on patient's age to complete this topic HPV VACCINE Aged Out No longer eligi ble based on patient's age to complete this topic MENINGOCOCCAL (Group B) VACC INE SHARED DECISION-MAKING Aged Out No longer eligibl e based on patient's age to complete this topic MENINGOCOCCAL GROUPS A/C/Y/W VACCINE Aged Out No longer eligible b ased on patient's age to complete this topic Insurance [facility]
--- OUTSIDE RECORDS SUMMARY | 2024-12-23 14:32 | XMS_ITS | Encounter Summary ---
Author Organization [facility] Address On license of [facility] [place] [address] Care Team Providers Care Water And Sewer Systems Supervisor Name Role Phone Isabella Avila MD Primary Care Provider [phone]- [phone] Encounter Details Date Type Department Care Team (Late st Contact Info) Description 03/03/2020 Reverbeot Message Enc [facility] - [facility] [address], [address] [place] [id number] Effie Chavira, APNP [address] [address] Test Results Social History Tobacco Use Types Packs/Day Years Used Date Smoking Tobacco: Never Smokeless Tobacco: Never Alcohol Use Standard Drinks/Week Comments No 0 (1 standard drink = 0.6 oz pur e alcohol) AUDIT-C Answer Date Recorded Frequency of Alcohol Consumption Never 11/11/2018 Average Number of Drinks Not on file 019 Frequency of Binge Drinking Not on file 10/26 PHQ-2 Answer Date Recorded PHQ-2 Score 0 01/19/2020 Comments No Sex and Gender Information Value Date Recorded Sex Assigned at Not on file Legal Sex Female 2:01 PM CDT Gender Identity Not on file Sexual Orientation Not on file COVID-19 Exposure Response Date Recorded In the last month, have you been in contact with someone who was confirmed or suspected to have Coronavirus / COVID-19? No / Unsure 02/10/2020 12:51 PM CDT documented as of this encounter Functional Status * RETIRED Are you deaf or do you have serious difficulty hearing Answer Date of Assessment Author Status No 11/11/2018 6:40 PM CDT Activ e * RETIRED Are you blind or do you have serious difficulty seeing, even when wearing glasses? Answer Date of Assessment Author Status No 11/11/2018 6:40 PM CDT Activ e * Do you have serious difficulty walking or climbing stairs? Answer Date of Assessment Author Status No 11/11/2018 6:40 PM CDT Marisol Charles RN Active * Do you have difficulty dressing or bathing? Answer Date of Assessment Author Status No 11/11/2018 6:40 PM CDT Marisol Charles RN Active * Because of a physical, mental, or emotional condition, do you have difficulty doing errands alone such as visiting a doctor's office or shopping? Answer Date of Assessment Author Status No 11/11/2018 6:40 PM CDT Marisol Charles RN Active documented as of this encounter Mental Status * Because of a physical, mental, or emotional condition, do you have serious difficulty concentrating, remembering, or making decisions? Answer Entry Date Author Status No 11/11/2018 6:40 PM CDT Marisol Charles RN Active documented in this encounter Progress Notes * Stephanie Barraza LPN - 03/08/2020 2:11 PM CST Spoke with patient she will get a copy of results from her pcp that [facility] sent to their office [facility] documented in this encounter Plan of Treatment Not on file documented as of this encounter Visit Diagnoses Not on filedocumented in this encounter Additional Health Concerns Assessment Noted Time PHQ-9 Depression Total Score: 0 02/02/20 20 2:52 PM CDT documented as of this encounter Care Teams Water And Sewer Systems Supervisor Relationship Specialty Start Date End Date Isabella Avila MD [address] [facility] [address] [place] [address] PCP - General FAMILY PRACTICE 11/11/18 documented as of this encounter
--- OUTSIDE RECORDS SUMMARY | 2024-12-23 14:32 | XMS_ITS | Encounter Summary ---
Author Organization [facility] Address [facility] [place] [address] Care Team Providers Care Uncrater Name Role Phone Isabella Avila MD Primary Care Provider [phone]- [phone] Encounter Details Date Type Department Care Team (Late st Contact Info) Description 11/18/2018 Hospital Follow-up Call [facility] Med/Surg [address] [place] [address] Darling Romero RN Social History Tobacco Use Types Packs/Day Years Used Date Smoking Tobacco: Never Smokeless Tobacco: Never Alcohol Use Standard Drinks/Week Comments No 0 (1 standard drink = 0.6 oz pur e alcohol) AUDIT-C Answer Date Recorded Frequency of Alcohol Consumption Never 11/11/2018 Average Number of Drinks Not on file 019 Frequency of Binge Drinking Not on file 10/26 Comments No Sex and Gender Information Value Date Recorded Sex Assigned at Not on file Legal Sex Female 2:01 PM CDT Gender Identity Not on file Sexual Orientation Not on file documented as of this encounter Functional Status [...] Assessment Author Status No 11/11/2018 6:40 PM Marisol Chavez RN Active * Because of a physical, mental, or emotional condition, do you have difficulty doing errands alone such as visiting a doctor's office or shopping? Answer Date of Assessment Author Status No 11/11/2018 6:40 PM Marisol Chavez RN Active documented as of this encounter Mental Status * Because of a physical, mental, or emotional condition, do you have serious difficulty concentrating, remembering, or making decisions? Answer Entry Date Author Status No 11/11/2018 6:40 PM Marisol Chavez RN Active documented in this encounter Plan of Treatment Not on file documented as of this encounter Visit Diagnoses Not on filedocumented in this encounter Care Teams Uncrater Relationship Specialty Start Date End Date Isabella Avila MD [address] [facility] [address] [facility] [address] [place] [address] PCP - General FAMILY PRACTICE 11/11/18 documented as of this encounter
--- OUTSIDE RECORDS SUMMARY | 2024-12-23 14:32 | XMS_ITS | Clinical Summary ---
Author Organization [facility] Address [address] [place] [address] Care Team Providers Care Survey And Mapping Technician Name Role Phone Isabella Avila MD Primary Care Provider [phone]- [phone] Allergies No known active allergies Medications zolpidem 10 MG tablet 5 mg nightly as needed. 1 9 Active gabapentin 300 MG capsule Take 300 mg by mouth nightly at bedtime. Active Dulaglutide (TRULICITY) 1.5 MG/0.5ML Solution Pen-injectorIn dications:take s on Friday Inject 1.5 mg into the skin once a week. 8 Active insulin detemir (LEVEMIR FLEXTOUCH) 100 UNIT/ML flextouch PEN Inject 6 Units into the skin nightly at bedtime. 8 Active Insulin Lispro (HUMALOG KWIKPEN) 200 UNIT/ML Solution Pen-injector Inject 10 Units into the skin 2 (two) times daily. 9 Active ranitidine 150 MG tablet Take 150 mg by mouth 2 (two) times daily. Active fluoxetine 10 MG capsule Take 1 capsule by mouth nightly. 8 Active fluticasone propionate 50 MCG/ACT nasal spray 9 Active hydrocodone-ac etaminophen 5-325 MG tablet Take 1 tablet by mouth daily. 9 Active vitamin B-12 (CYANOCOBALAMI N) 1000 mcg tablet Take 1,000 mcg by mouth daily. Active [place]-3 Fatty Acids (FISH OIL) 1200 MG Cap Take 1 tablet by mouth daily. Active Digestive Enzymes (PAPAYA AND ENZYMES OR) Take 1 tablet by mouth daily. Active biotin 300 MCG Tab Take 1 tablet by mouth daily. Active amlodipine 10 MG tablet Take 10 mg by mouth daily. Active tiZANidine 4 MG tablet 0 Active tamsulosin 0.4 MG Cap 9 Active baclofen 10 MG tablet 0 Active Cholecalcifero l (D 5000) 125 MCG (5000 UT) Cap Take 5,000 Units by mouth daily. Active ciprofloxacin 250 MG tablet TAKE 1 TABLET BY MOUTH TWICE A DAY FOR 5 DAYS 0 Active vitamin D2, ergocalciferol , (VITAMIN D, ERGOCALCIFEROL ,) 13387 UNITS capsule Take 50,000 Units by mouth. Active metFORMIN 500 MG tablet TAKE 1 TABLET BY MOUTH TWICE A DAY WITH MEALS 0 Active metoprolol tartrate 25 MG tablet 0 Active nitrofurantoin , macrocrystal-m onohydrate, 100 MG capsule TAKE 1 CAPSULE BY MOUTH EVERY 12 HOURS MUST ADMINISTER WITH A MEAL/FOOD 0 Active nystatin-triam cinolone cream 0 Active ondansetron 4 MG tablet 9 Active oxyCODONE immediate release 5 MG immediate release tablet 0 Active senna-docusate 8.6-50 MG tablet Take 1 tablet by mouth 2 (two) times daily. 0 Active SENEXON-S 8.6-50 MG tablet 0 Active venlafaxine 37.5 MG tablet 1 Active temazepam 15 MG capsule 1 Active ONETOUCH VERIO test strip CHECK BLOOD SUGAR FOUR TIMES A DAY OR DIRECTED 0 Active Glucose Blood ([employer] TEST STRIPS) test strip Check blood sugar four times a day or as directed 0 Active Continuous Blood Gluc Sensor (FREESTYLE BRANDY 14 DAY SENSOR) [facility] 1 Active Continuous Blood Gluc Group Product Manager (FREESTYLE BRANDY 14 DAY READER) Device USE TO SCAN BLOOD GLUCOSE 4 TIMES DAILY 0 Active Blood Glucose Monitoring Suppl (FIFTY50 GLUCOSE METER 2.0) w/Device Kit Use daily or as directed for monitoring of diabetes 0 Active albuterol sulfate HFA 108 (90 Base) MCG/ACT inhaler INHALE 1 PUFF BY MOUTH EVERY 4 HOURS NEEDED FOR SHORTNESS OF BREATH OR WHEEZING 1 Active DULoxetine 30 MG capsule duloxetine 30 mg capsule,delayed release 1 Active metroNIDAZOLE 0.75 % vaginal gel metronidazole 0.75 % vaginal gel Active Active Problems Problem Noted Date Diagnosed Date Nephrolithiasis 01/21/2019 Solitary left kidney 01/21/2019 Acute renal failure (ARF) 11/11/2018 Family History Medical History Relation Comments Cancer Father Diabetes Father Heart Disease Father Hyperlipidemia Father Stroke Father Relation Status Comments Father (Age 72) multiple myelo ma Mother Alive Social History Tobacco Use Types Packs/Day Years Used Date Smoking Tobacco: Never Smokeless Tobacco: Never Alcohol Use Standard Drinks/Week Comments No 0 (1 standard drink = 0.6 oz pur e alcohol) AUDIT-C Answer Date Recorded Frequency of Alcohol Consumption Never 11/11/2018 Average Number of Drinks Not on file 019 Frequency of Binge Drinking Not on file 10/26 PHQ-2 Answer Date Recorded PHQ-2 Score - If the patient scores above 3, please move on to questions 3-9 0 03/26/2021 Comments No Sex and Gender Information Value Date Recorded Sex Assigned at Not on file Legal Sex Female 2:01 PM CDT Gender Identity Not on file Sexual Orientation Not on file Last Filed Vital Signs Vital Sign Reading Time Taken Comments Blood Pressure 178/90 01/02/2022 8:45 PM CDT Pulse 59 01/02/2022 8:45 PM CDT Temperature 36.4 C (97.6 F) 01/02/2022 5:11 PM CDT Respiratory Rate 18 01/02/2022 8:45 PM CDT Oxygen Saturation 97% 01/02/2022 8:45 PM CDT Inhaled Oxygen Concentration - - Weight 68.9 kg (152 lb) 01/02/2022 5:11 PM CDT Height 154.9 cm (5' 1) 01/02/2022 5:11 PM CDT Body Mass Index 28.72 01/02/2022 5:11 PM CDT Plan of Treatment Health Maintenance Due Date Last Done Comments Cervical Cancer Screening Pa p Smear (Age 30 to 64) Every 3 Years 1964 Colorectal Cancer Screening Colonoscopy (10 Years) 1964 Annual Physical 1967 Hepatitis C 1982 DTaP, Tdap and Td Vaccines ( 1 - Tdap) 1983 Cervical Cancer Screening Pa p with HPV Testing (Age 30 to 64) Every 5 Years 1994 Cervical Cancer Screening wi th HPV 1994 Mammogram Screening 2004 Pneumococcal Vaccine: 50+ Years (1 of 1 - PCV) 2014 Zoster Vaccines (1 of 2) 2014 COVID-19 Vaccine (3 - 2023-2 5 season) 2023 07/24/2020, 06/24/2020 RSV Immunization or 60+ Years (1 - 1-dose 75+ series) 2039 Meningococcal B Vaccine Aged Out No l onger eligible based on patient's age to complete this topic Meningococcal Vaccine Aged Out No marco kwabena eligible based on patient's age to complete this topic RSV Immunizations Under 20 Months Aged Out No longer eligible b ased on patient's age to complete this topic Medical Devices Implanted Type Area Carton Gluing Machine Operator Device Identifier Shelf Expiration Date Model / Serial / Lot Stent [place] 6fr X 22cm - [id number] Implanted:Qty: 1 on 12/11/2018 by Steve Winn MD at [facility] Stent Left: U[employer] 02/02/2023 [id number] / / [id number] Stent [place] 6fr X 22cm - [id number] Implanted:Qty: 1 on 11/12/2018 by Alexandre Hernández MD at [facility] Left: [employer] 03/14/2022 [id number] / / [id number] Insurance [facility] Advance Directives Documents on File Type Date Recorded Patient Zinc Chloride Operator Expl anation Advance Directives and Livin g Will 01/19/2020 11:38 AM UMR * Full Code (Latest Code Status on File) Date Activated Date Inactivated Comments 11/12/2018 8:37 AM 11/14/2018 5:43 PM * Full Code Date Activated Date Inactivated Comments 11/11/2018 7:16 PM 11/12/2018 8:37 AM Care Teams Survey And Mapping Technician Relationship Specialty Start Date End Date Isabella Avila MD [address] [facility] [address] [place] [address] PCP - General FAMILY PRACTICE 11/11/18
--- OUTSIDE RECORDS SUMMARY | 2024-12-23 14:33 | XMS_ITS | Encounter Summary ---
Author Organization [facility] Address [address] [place] [address] Care Team Providers Care Clam Bed Laborer Name Role Phone Isabella Avila MD Primary Care Provider Encounter Details Date Type Department Care Team (Late st Contact Info) Description 12/23/2023 Documentation Internal Medicine Maik Vanessa BS Social History Tobacco Use Types Packs/Day Years Used Date Smoking Tobacco: Never Smokeless Tobacco: Never Alcohol Use Standard Drinks/Week Comments Yes 0 [...] on file Legal Sex Female 1:24 AM CHIEF OPHTHALMIC TECHNICIAN Gender Identity Not on file Sexual Orientation Not on file 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
--- OUTSIDE RECORDS SUMMARY | 2024-12-23 14:33 | XMS_ITS | Clinical Summary ---
Author Organization [facility] Address [address] [place] [address] Phone Care Team Providers Care Travel Money Advisor Name Role Phone Isabella Avila MD Primary Care Provider [phone] Allergies No known active allergies Medications gabapentin (NEURONTIN) 300 MG capsule Take 300 mg by mouth every night Active biotin 300 MCG tablet tablet 300 mcg daily Ac tive Sylvester-3 Fatty Acids (FISH OIL) 1200 MG capsule delayed-release Take by mouth 1 (one) time each day Active Fluticasone Propionate 93 MCG/ACT Exhaler Suspension Administer into affected nostril(s) Active Digestive Enzymes (PAPAYA AND ENZYMES PO) Take by mouth Active cyanocobalamin (VITAMIN B-12) 1000 MCG tablet Take 100 mcg by mouth 1 (one) time each day Active ondansetron (ZOFRAN) 4 MG tablet 10/09/19 19 Active HYDROcodone-acetami nophen (VICODIN) 5-300 MG per tablet Take 1 tablet by mouth Active ergocalciferol (VITAMIN D-2) 1.25 MG (58702 UT) capsule Take 50,000 Units by mouth 1 (one) time per week Active ferrous sulfate 325 (65 Fe) MG tablet Take 325 mg by mouth 1 (one) time each day with breakfast Active DULoxetine (CYMBALTA) [address] capsule Take 60 mg by mouth every night Do not crush or chew. Active Semaglutide,0.25 or 0.5MG/DOS, (Ozempic, 0.25 or 0.5 MG/DOSE,) 2 MG/1.5ML solution pen-injector Inject under the skin Active insulin aspart (NovoLOG) 100 UNIT/ML injection Inject 14 Units under the skin 2 (two) times a day before meals Sliding scale Active insulin detemir (LEVEMIR) 100 UNIT/ML injection Inject under the skin every night 20 units daily Active DULoxetine (CYMBALTA) [address] capsule Take 30 mg by mouth every night Active traZODone (DESYREL) 50 MG tablet Take 50 mg by mouth every night Active terbinafine (LamISIL) 250 MG tablet Take 250 mg by mouth 1 (one) time each day Active iron polysaccharides (NU-IRON) 150 MG capsule Take 150 mg by mouth 1 (one) time each day Active Continuous Blood Gluc Sensor (Enlite Glucose Sensor) [facility] Freestyle nadya Active nitrofurantoin (MACRODANTIN) 100 MG capsule Take 1 capsule (100 mg total) by mouth in the morning and 1 capsule (100 mg total) in the evening. 6 capsule 11/11/19 24 Active atorvastatin (LIPITOR) 10 MG tablet Take 10 mg by mouth 1 (one) time each day Active metoprolol tartrate (LOPRESSOR) 50 MG tablet TAKE 1 TABLET BY MOUTH 1 TIME EACH DAY 90 tablet 1 06/28/19 25 Active Active Problems Problem Noted Date Diagnosed Date Stage 3a chronic kidney disease 01/10/2021 Urinary tract infectious disease 03/29/2020 S/P nephrectomy 12/08/2018 Essential hypertension 12/08/2018 Type 2 diabetes mellitus 12/08/2018 History of neuroblastoma 12/08/2018 Resolved Problems Problem Noted Date Diagnosed Date Resolved Date Anemia in chronic kidney disease 12/21/2019 07/04/2021 Vitamin D deficiency 12/21/2019 020 Stage 3a chronic kidney disease 01/07/2019 01/10/2021 Acute renal failure syndrome 01/07/2019 04/07/2019 Acquired scoliosis 12/21/2018 9 Hematuria 12/08/2018 01/07/2019 Anuria 12/08/2018 01/07/2019 Renal cell carcinoma 12/08/2018 020 Personal history of kidney stones 12/08/2018 03/29/2020 Lumbosacral spondylosis without myelopathy 07/10/2018 04/07/2019 Idiopathic scoliosis of thor acic and lumbar spine 07/10/2018 04/07/2019 Pain in lower limb 06/15/2018 9 Lumbosacral radiculopathy 06/15/2018 Chronic low back pain 06/15/20182019 Neuropathic pain 01/20/2018 04/07/2019 Overview (04/07/2019): Last Assessment & Plan: Unclear etiology Start Nortriptyline Neurology consultation Diabetic dyslipidemia associ ated with type 2 diabetes mellitus 01/20/2018 04/07/2019 Overview (04/07/2019): Last Assessment & Plan: Goal of treatment , LDL cholesterol less [...] and advised. Daily exercise On statin therapy Abnormal weight loss 11/13/2009 019 Overview (04/07/2019): Description: 25# in 2.5 months Encounters Date Type Department Care Team Description 10/01/2024 Orders Only [facility] [address] [place] [id number] Simi Dwyer NP from Last 3 Months Social History Tobacco Use Types Packs/Day Years Used Date Smoking Tobacco: Never Smokeless Tobacco: Never Tobacco Cessation:Counseling Given: Not Answered Alcohol Use Standard Drinks/Week Comments Never 0 [...] Sign Reading Time Taken Comments Blood Pressure 142/64 04/08/2024 11:31 AM V BLOCK SAW OPERATOR ma nual Pulse 71 04/08/2024 11:31 AM V BLOCK SAW OPERATOR Temperature 36.2 C (97.1 F) 01/02/2022 4:03 PM CDT Respiratory Rate - - Oxygen Saturation - - Inhaled Oxygen Concentration - - Weight 75.8 kg (167 lb) 04/08/2024 11:31 AM V BLOCK SAW OPERATOR Height 154.9 cm (5' 1) 04/08/2024 11:31 AM V BLOCK SAW OPERATOR Body Mass Index 31.55 04/08/2024 11:31 AM V BLOCK SAW OPERATOR Plan of Treatment Upcoming Encounters Date Type Department Care Team (Late st Contact Info) Description 01/06/2025 11:00 AM CDT Office Visit [facility] [address] [facility] [address] [place] [address] Simi Dwyer, HUI [address] [facility] [address] [place] [address] Health Maintenance Due Date Last Done Comments Diabetic Foot Exam 1974 Ophthalmology Exam 1974 Pneumococcal PPSV23 Highest Risk Adult (1 of 3 - PCV13 ) 1983 Influenza Vaccine (#1) 2024 Procedures Procedure Name Priority Date/Time Associated Diagnosis Comments SPECIMEN STATUS REPORT Routine 10/01/2024 12:06 PM CDT [facility] CKD PROGRAM Routine 10/01/2024 12:06 PM CDT ALBUMIN / CREATININE RATIO, RANDOM, URINE Routine 10/01/2024 12:06 PM CDT PTH, INTACT W/ CALCIUM Routine 10/01/2024 12:06 PM CDT RENAL FUNCTION PANEL Routine 10/01/2024 12:06 PM CDT MICROSCOPIC EXAMINATION Routine 10/01/2024 12:06 PM CDT URINALYSIS ROUTINE W/ REFLEX MICROSCOPIC Routine 10/01/2024 12:06 PM CDT CBC/DIFF AMBIGUOUS DEFAULT Routine 10/01/2024 12:06 PM CDT from Last 3 Months Results * Specimen Status Report (10/01/2024 12:06 PM CDT) Specimen Status Report Comment [facility] 1 Comment: Ambgricelda Abbrev RP10 Default Ambig Abbrev RP10 Default A hand-written panel/profile was received from your office. In accordance with the [facility] Ambiguous Test Code Policy dated October 2002, we have completed your order by using the closest currently or formerly recognized AMA panel. We have assigned Renal Panel (10), Test Code #513378 to this request. If this is not the testing you wished to receive on this specimen, please contact the [facility] Client Inquiry/Technical Services Department to clarify the test order. We appreciate your business. 10/01/2024 12:0 6 PM CDT 09/30/2024 11:00 PM CDT Narrative [facility] - 10/04/2024 2:09 PM CDT Performed at: [address] [id number] Medic Technician: Clovis Stack PhD, Phone: [phone] us Simi Dwyer NP LAB BLOOD ORDERABLES Final Resu lt [facility] 1 * (ABNORMAL) PTH, Intact w/ Calcium (10/01/2024 12:06 PM CDT) PTH, Intact, Serum/Plasma 78(H) 15 - 65 pg/mL [facility] 1 Parathyrin (PTH), intact, Serum/Plasma Comment [facility] Comment: Interpretation Intact PTH Calcium (pg/mL) (mg/dL) Normal 15 - 65 8.6 - 10.2 Primary Hyperparathyroidism >65 >10.2 Secondary Hyperparathyroidism >65 <10.2 Non-Parathyroid Hypercalcemia <65 >10.2 Hypoparathyroidism <15 < 8.6 Non-Parathyroid Hypocalcemia 15 - 65 < 8.6 10/01/2024 12:0 6 PM CDT 09/30/2024 11:00 PM CDT Narrative [facility] - 10/04/2024 2:09 PM CDT Performed at: [address] [place] [id number] Medic Technician: Clovis Stack PhD, Phone: [phone] Simi Dwyer NP LAB BLOOD ORDERABLES Final Resu lt [facility] * CBC/Diff Ambiguous Default (10/01/2024 12:06 PM CDT) Leukocytes, Blood 7.6 3.4 - 10.8 x10E3/uL [facility] 1 Erythrocytes (RBC) 4.99 3.77 - 5.28 x10E6/uL [facility] 1 Hemoglobin (HGB) 14.1 11.1 - 15.9 g/dL [facility] 1 Hematocrit (HCT) 44.5 34.0 - 46.6 % [facility] 1 MCV 89 79 - 97 fL [facility] 1 MCH 28.3 26.6 - 33.0 pg [facility] 1 MCHC 31.7 31.5 - 35.7 g/dL [facility] 1 Erythrocyte Distribution Width (RDW) 13.6 11.7 - 15.4 % [facility] 1 Platelets, Blood 314 150 - 450 x10E3/uL [facility] 1 Neutrophils/100 leukocytes, Blood 59 Not Estab. % [facility] 1 Lymphocytes/100 leukocytes, Blood 31 Not Estab. % [facility] 1 Monocytes/100 leukocytes, Blood 8 Not Estab. % [facility] 1 Eosinophils/100 leukocytes, Blood 2 Not Estab. % [facility] 1 Basophils/100 leukocytes, Blood 0 Not Estab. % [facility] 1 Neutrophils, Blood 4.4 1.4 - 7.0 x10E3/uL [facility] 1 Lymphocytes, Blood 2.3 0.7 - 3.1 x10E3/uL [facility] 1 Monocytes, Blood 0.6 0.1 - 0.9 x10E3/uL [facility] 1 Eosinophils, Blood 0.2 0.0 - 0.4 x10E3/uL [facility] 1 Basophils, Blood 0.0 0.0 - 0.2 x10E3/uL [facility] 1 Immature granulocytes/100 leukocytes, Blood 0 Not Estab. % [facility] 1 Immature granulocytes, Blood 0.0 0.0 - 0.1 x10E3/uL [facility] 1 Comment: A hand-written panel/profile was received from your office. In accordance with the [facility] Ambiguous Test Code Policy dated October 2002, we have assigned CBC with Differential/Platelet, Test Code #[id number] to this request. If this is not the testing you wished to receive on this specimen, please contact the [facility] Client Inquiry/ Technical Services Department to clarify the test order. We appreciate your business. 10/01/2024 12:0 6 PM CDT 09/30/2024 11:00 PM CDT Narrative [facility] - 10/04/2024 2:09 PM CDT Performed at: [address] [id number] Medic Technician: Clovis Stack PhD, Phone: [phone] us Simi Dwyer SAND MOLDER LAB BLOOD ORDERABLES Final Resu lt Performing Organization Address [facility] Co de Phone Number [facility] 1 * Albumin/Creatinine Ratio, Random, Urine (10/01/2024 12:06 PM CDT) Creatinine, Urine 207.0 Not Estab. mg/dL [facility] 1 Microalbumin, Urine 17.1 Not Estab. ug/mL [facility] 1 Albumin/Creatini ne, Urine 8 0 - 29 mg/g creat [facility] 1 Comment: Normal: 0 - 29 Moderately increased: 30 - 300 Severely increased: >300 10/01/2024 12:0 6 PM CDT 09/30/2024 11:00 PM CDT Narrative [facility] - 10/04/2024 2:09 PM CDT Performed at: [address] [id number] Medic Technician: Clovis Stack PhD, Phone: [phone] us Simi Dwyer SAND MOLDER LAB URINE ORDERABLES Final Resu lt Performing Organization Address [facility] Co de Phone Number [facility] * LithoLink CKD Program (10/01/2024 12:06 PM CDT) Interpretation Note [facility] 2 Comment: [employer]house Florist's Note: CBC Note: A hand-written panel/profile was received from your office. In accordance with the [facility] Ambiguous Test Code Policy dated October 2002, we have assigned CBC with Differential/Platelet, Test Code #[id number] to this request. If this is not the testing you wished to receive on this specimen, please contact the [facility] Client Inquiry/ Technical Services Department to clarify the test order. We appreciate your business. [employer] Florist's Note: Kendra Montgomery RP10 Default: A hand-written panel/profile was received from your office. In accordance with the [facility] Ambiguous Test Code Policy dated October 2002, we have completed your order by using the closest currently or formerly recognized AMA panel. We have assigned Renal Panel (10), Test Code #[id number] to this request. If this is not the testing you wished to receive on this specimen, please contact the [facility] Client Inquiry/Technical Services Department to clarify the test order. We appreciate your business. Supplemental report is available. PDF Image . [facility] 2 10/01/2024 12:0 6 PM CDT 09/30/2024 11:00 PM CDT Narrative [facility] - 10/04/2024 2:09 PM CDT Performed at: [facility] Clinical / Digital [address] [place] [id number] Medic Technician: Medina Oquendo MD, Phone: [phone] us Simi Dwyer NP LAB BLOOD ORDERABLES Final Resu lt [facility] * (ABNORMAL) Microsopic Examination (10/01/2024 12:06 PM CDT) Leukocytes, Urine sediment >30(A) 0 - 5 /hpf [facility] 1 Erythrocytes, Urine sediment None seen 0 - 2 /hpf [facility] 1 Epithelial cells, Urine sediment >10(A) 0 - 10 /hpf [facility] 1 Casts, Urine sediment None seen None seen /lpf [facility] 1 Bacteria, Urine sediment Many(A) None seen/Few [facility] 1 10/01/2024 12:0 6 PM CDT 09/30/2024 11:00 PM CDT Narrative [facility] - 10/04/2024 2:09 PM CDT Performed at: - [facility] [id number] Medic Technician: Clovis Stack PhD, Phone: [phone] us Simi Dwyer SAND MOLDER LAB BLOOD ORDERABLES Final Resu lt Performing Organization Address [facility]/ZIP Co de Phone Number [facility] * (ABNORMAL) Renal Function Panel (RFP) (10/01/2024 12:06 PM CDT) Pathologist [facility] Glucose, Serum/Plasma 107(H) 70 - 99 mg/dL [facility] 1 Urea nitrogen, Serum/Plasma (BUN) 24 8 - 27 mg/dL [facility] 1 Creatinine, Serum/Plasma 1.29(H) 0.57 - 1.00 mg/dL [facility] 1 Estimated Glomerular Filtration Rate (eGFR) 48(L) >59 mL/min/1.7 3 [facility] 1 Urea nitrogen/Creati nine, Serum/Plasma 19 12 - 28 [facility] 1 Sodium, Serum/Plasma 137 134 - 144 mmol/L [facility] 1 Potassium, Serum/Plasma 5.4(H) 3.5 - 5.2 mmol/L [facility] 1 Chloride, Serum/Plasma 98 96 - 106 mmol/L [facility] 1 Carbon dioxide CO2), total, Serum/Plasma 26 20 - 29 mmol/L [facility] 1 Calcium, Serum/Plasma 10.1 8.7 - 10.3 mg/dL [facility] 1 Phosphate, Serum/Plasma 4.0 3.0 - 4.3 mg/dL [facility] 1 Albumin, Serum/Plasma 4.2 3.8 - 4.9 g/dL [facility] 1 10/01/2024 12:0 6 PM CDT 09/30/2024 11:00 PM CDT Narrative [facility] - 10/04/2024 2:09 PM CDT Performed at: - [facility] [id number] Medic Technician: Clovis Stack PhD, Phone: [phone] us Simi Dwyer SAND MOLDER LAB BLOOD ORDERABLES Final Resu lt Performing Organization Address [facility]/ZIP Co de Phone Number [facility] * (ABNORMAL) Urinalysis, Routine W/ Reflex Microscopic (10/01/2024 12:06 PM CDT) Specific gravity of Urine 1.024 1.005 - 1.030 [facility] 1 pH of Urine 5.5 5.0 - 7.5 [facility] 1 Color of Urine Yellow Yellow [facility] 1 Appearance of Urine Cloudy(A) Clear [facility] 1 Leukocyte esterase, Urine 2+(A) Negative [facility] 1 Protein, Urine Trace Negative/Tra ce [facility] 1 Glucose, Urine Negative Negative [facility] 1 Ketones, Urine Negative Negative [facility] 1 Hemoglobin, Urine Negative Negative [facility] 1 Bilirubin, total, Urine Negative Negative [facility] 1 Urobilinogen, Urine 0.2 0.2 - 1.0 mg/dL [facility] 1 Nitrite, Urine Negative Negative [facility] 1 Microscopic Examination See below: [facility] 1 Comment:Microscopic was lorne cated and was performed. 10/01/2024 12:0 6 PM CDT 09/30/2024 11:00 PM CDT Narrative [facility] - 10/04/2024 2:09 PM CDT Performed at: 01 - [facility] [id number] Medic Technician: Clovis Stack PhD, Phone: [phone] us Simi Dwyer NP LAB URINE ORDERABLES Final Resu lt [facility] 1 from Last 3 Months Insurance [facility] MEDICARE Care Teams Travel Money Advisor Relationship Specialty Start Date End Date Isabella Avila MD [address] [facility] [address] [facility] [address] [place] [id number] PCP - General Internal Medicine 12/15/18
== END 2024-12-23 14:28 | disposition home or self-care (01) ==
PROVIDERS: PCP Family Medicine; Visit Provider Urology
DX: C64.2 Malignant neoplasm of left kidney, except renal pelvis (principal); D25.9 Leiomyoma of uterus, unspecified
CPT/HCPCS: 71046; 74176

== ENCOUNTER 2025-01-12 00:26 | Day surgery (SDC) | payer BC, MEDICARE, SELFPAY ==
[2024-12-28 13:35] VITALS: BMI 33.7
[2025-01-12 06:43] VITALS: BP 157/80; PULSE 82; RESP 18; TEMP 36.1; O2SAT 97; BMI 33.7
--- NOTE | 2025-01-12 07:20 | WPDANESEPPF ---
Anes - Initial Pre Proc Eval Procedure: Operation Date: 01/12/25 08:00 Proposed Procedures p Screening Colonoscopy - Angel Leyva MD Date/Time: 01/12/25 07:20 Surgeon: Angel Leyva MD Pre Op Diagnosis: Personal history of colon polyps, unspecified Patient Data Age: 59 Gender: F Height: 1.55 m Weight: 81.1 kg Last Vital Signs Temp 97 F L 01/12/25 06:43 Pulse 82 01/12/25 06:43 Resp 18 01/12/25 06:43 BP 157/80 H 01/12/25 06:43 Pulse Ox 97 01/12/25 06:43 O2 Del Method Room Air 01/12/25 06:43 Allergies Allergy/AdvReac Type Severity Reaction Status Date / Time No Known Allergies Allergy Mild Verified 01/12/25 06:41 Home Medications ?Medication ?Instructions ?Recorded ?Confirmed ?Type blood sugar diagnostic (Contour #10 ea 04/19/19 09/22/24 History Test Strips) pen needle, diabetic 30 gauge x #100 ea 04/19/19 09/22/24 History 5/16 (CareFine Pen Needle) cholecalciferol (vitamin D3) 125 125 mcg PO DAILY 03/02/20 01/12/25 History mcg (5,000 unit) tablet (Vitamin D3) coenzyme Q10 100 mg capsule (Co 100 mg PO DAILY 03/02/20 01/12/25 History Q-10) omega-3 fatty acids 1,200 mg PO WEEKLY 03/02/20 01/12/25 History metoprolol tartrate 50 mg tablet 50 mg PO HS 01/22/21 01/12/25 History fluticasone propionate 50 See Rx Instructions .Route 04/10/22 01/12/25 Rx mcg/actuation nasal .COMPLEX #16 mL spray,suspension semaglutide 1 mg/dose (4 mg/3 mL) 1 mg subcut WEEKLY 11/26/22 01/12/25 History subcutaneous pen injector (Ozempic) biotin 5 mg capsule 5 mg PO DAILY 12/10/22 01/12/25 History multivitamin 1 cap PO DAILY 12/10/22 01/12/25 History polysaccharide iron complex 150 mg 65 mg PO HS 12/10/22 12/28/24 History iron capsule (Poly-Iron) insulin aspart U-100 100 unit/mL 14 unit (0.14 mL) subcut TIDWMEAL 12/18/22 01/12/25 Rx subcutaneous cartridge (Novolog #15 mL PenFill U-100 Insulin aspart) rosuvastatin 5 mg tablet 5 mg PO DAILY 12/18/22 01/12/25 History trazodone 50 mg tablet 50 mg PO QHS #90 tabs 12/18/23 01/12/25 Rx promethazine 12.5 mg tablet 12.5 mg PO Q6H PRN nausea and 05/31/24 12/28/24 Rx vomiting #10 tabs gabapentin 300 mg capsule 600 mg (2 x 300 mg) PO BID #120 09/22/24 01/12/25 Rx caps hydroxyzine HCl 10 mg tablet See Rx Instructions .Route 11/08/24 12/28/24 Rx .COMPLEX #90 tabs amlodipine 5 mg tablet See Rx Instructions .Route 12/20/24 01/12/25 Rx .COMPLEX #90 tabs insulin glargine-yfgn 100 unit/mL 3 unit subcut QPM 12/28/24 01/12/25 History (3 mL) subcutaneous pen oxycodone 10 mg tablet 10 mg PO TID PRN pain #90 tabs 01/07/25 01/12/25 Rx duloxetine 30 mg capsule,delayed 30 mg PO BID #180 caps 01/11/25 01/12/25 Rx release Patient hx anesthesia problems: post op nausea/vomiting Family hx anesthesia problems: none Results Review: All pre-operative results and documents have been reviewed as part of the pre-operative evaluation. [facility] Past Medical History Medical History Chronic back pain Chronic pain after radiotherapy Chronic pain disorder Mixed hyperlipidemia Renal arterial hypertension Scoliosis after radiation therapy Type 2 diabetes mellitus with stage 2 chronic kidney disease Type 2 diabetes mellitus with hyperglycemia, with long-term current use of insulin Type 2 diabetes mellitus with diabetic nephropathy Tremor of both hands Stress at home Sleep disturbance Radiculopathy, thoracolumbar region Other chronic pain Non-compliance Non morbid obesity due to excess calories Mood swings Malignant neoplasm of right kidney, except renal pelvis senior living (current) use of insulin Left nephrolithiasis Insomnia due to medical condition Idiopathic chronic gout, unspecified site, without tophus (tophi) Hyperlipidemia LDL goal <100 Hx of renal cell cancer Hx of neuroblastoma Hematuria, gross Gastroenteritis and colitis, viral Essential (primary) hypertension Dermatitis, perioral Chronic kidney disease, stage 2 (mild) Chronic gout, unspecified, without tophus (tophi) Chronic bilateral low back pain without sciatica Body mass index [BMI] 32.0-32.9, adult (11/25/16) Acute maxillary sinusitis, unspecified Acute kidney injury (nontraumatic) Acute cystitis without hematuria Acute cystitis with hematuria Acquired solitary kidney Anemia Dyspepsia Adenomatous colon polyp Chronic insomnia Encounter for orthopedic aftercare following scoliosis surgery Chronic pain Mixed hyperlipidemia Benign reactive hypertension Diabetes mellitus Chronic pain disorder Scoliosis after radiation therapy Nephroblastoma Surgical History Surgical History H/O colonoscopy with polypectomy H/O partial nephrectomy H/O right nephrectomy Family History Family History Mother Hypertension Father Family history of malignant neoplasm, Onset Age: 72 Patient's father is Social History Social History Social History: Smoking status: Never smoker Second hand tobacco smoke exposure: No Alcohol intake: never Substance use: never Substance use type: does not use Lack of Transportation: No Lack of Food: Never True Current Housing: I Have Housing Concerned About Future Housing: No Difficulty Paying Gas/Electric Bills: No Difficulty Paying for Meds: No Currently Unemployed: Decline to Answer Education: Decline to Answer Difficulty w/ Childcare or Family Care: No Living arrangements: with family Occupation/Education: unemployed Gender identity (if verbalized by the patient): Female Sexual Orientation (if Verbalized by the Patient): Straight or Heterosexual Spiritual care concerns: No Anes - Eval Final PreProcedure Day of Procedure 01/12/25 07:20 Patient weight: obese Lungs: normal air movement Airway: Mallampati scale class II Neurological: alert and oriented Last oral intake: >/= 8 hours ASA classification: III Emergent: no Anesthetic plan: proceed Anesthesia type and monitoring: general GIVS and standard monitoring Results Review: All pre-operative results and documents have been reviewed as part of the pre-operative evaluation. HTN, hyperlipidemia, DM, Hx of renal cell ca (2010), CKD. Informed Consent: The patient's anesthetic plan and its attendant risks and benefits were discussed with the patient/family/POA. Questions were solicited and answers provided to the satisfaction of the patient/family/POA.
[2025-01-12] MEDS: LACTATED RINGERS 1,000 ML 150 ML IV CONT (07:28)
--- NOTE | 2025-01-12 07:47 | PM.HPGS ---
History of Present Illness History of Present Illness Consent: Risks, benefits, and alternatives have been discussed and questions answered. Patient agrees to proceed with procedure. Chief complaint: Personal history of colon polyps, unspecified Narrative: Susan Acuña is a 59 year old female with colon polyp in 2019 Review of Systems Review of Systems: All systems reviewed & are unremarkable except as noted in HPI and below PMFSH Past Medical History Medical History Chronic back pain Chronic pain after radiotherapy Chronic pain disorder Mixed hyperlipidemia Renal arterial hypertension Scoliosis after radiation therapy Type 2 diabetes mellitus with stage 2 chronic kidney disease Type 2 diabetes mellitus with hyperglycemia, with long-term current use of insulin Type 2 diabetes mellitus with diabetic nephropathy Tremor of both hands Stress at home Sleep disturbance Radiculopathy, thoracolumbar region Other chronic pain Non-compliance Non morbid obesity due to excess calories Mood swings Malignant neoplasm of right kidney, except renal pelvis intermediate (current) use of insulin Left nephrolithiasis Insomnia due to medical condition Idiopathic chronic gout, unspecified site, without tophus (tophi) Hyperlipidemia LDL goal <100 Hx of renal cell cancer Hx of neuroblastoma Hematuria, gross Gastroenteritis and colitis, viral Essential (primary) hypertension Dermatitis, perioral Chronic kidney disease, stage 2 (mild) Chronic gout, unspecified, without tophus (tophi) Chronic bilateral low back pain without sciatica Body mass index [BMI] 32.0-32.9, adult (11/25/16) Acute maxillary sinusitis, unspecified Acute kidney injury (nontraumatic) Acute cystitis without hematuria Acute cystitis with hematuria Acquired solitary kidney Anemia Dyspepsia Adenomatous colon polyp Chronic insomnia Encounter for orthopedic aftercare following scoliosis surgery Chronic pain Mixed hyperlipidemia Benign reactive hypertension Diabetes mellitus Chronic pain disorder Scoliosis after radiation therapy Nephroblastoma Surgical History Surgical History H/O colonoscopy with polypectomy H/O partial nephrectomy H/O right nephrectomy Family History Family History Mother Hypertension Father Family history of malignant neoplasm, Onset Age: 72 Patient's father is Social History Social History Social History: Smoking status: Never smoker Second hand tobacco smoke exposure: No Alcohol intake: never Substance use: never Substance use type: does not use Lack of Transportation: No Lack of Food: Never True Current Housing: I Have Housing Concerned About Future Housing: No Difficulty Paying Gas/Electric Bills: No Difficulty Paying for Meds: No Currently Unemployed: Decline to Answer Education: Decline to Answer Difficulty w/ Childcare or Family Care: No Living arrangements: with family Occupation/Education: unemployed Gender identity (if verbalized by the patient): Female Sexual Orientation (if Verbalized by the Patient): Straight or Heterosexual Spiritual care concerns: No Meds Home Medications and Allergies Home Medications ?Medication ?Instructions ?Recorded ?Confirmed ?Type blood sugar diagnostic (Contour #10 ea 04/19/19 09/22/24 History Test Strips) pen needle, diabetic 30 gauge x #100 ea 04/19/19 09/22/24 History 09/10 (CareFine Pen Needle) cholecalciferol (vitamin D3) 125 125 mcg PO DAILY 03/02/20 01/12/25 History mcg (5,000 unit) tablet (Vitamin D3) coenzyme Q10 100 mg capsule (Co 100 mg PO DAILY 03/02/20 01/12/25 History Q-10) omega-3 fatty acids 1,200 mg PO WEEKLY 03/02/20 01/12/25 History metoprolol tartrate 50 mg tablet 50 mg PO HS 01/22/21 01/12/25 History fluticasone propionate 50 See Rx Instructions .Route 04/10/22 01/12/25 Rx mcg/actuation nasal .COMPLEX #16 mL spray,suspension semaglutide 1 mg/dose (4 mg/3 mL) 1 mg subcut WEEKLY 11/26/22 01/12/25 History subcutaneous pen injector (Ozempic) biotin 5 mg capsule 5 mg PO DAILY 12/10/22 01/12/25 History multivitamin 1 cap PO DAILY 12/10/22 01/12/25 History polysaccharide iron complex 150 mg 65 mg PO HS 12/10/22 12/28/24 History iron capsule (Poly-Iron) insulin aspart U-100 100 unit/mL 14 unit (0.14 mL) subcut TIDWMEAL 12/18/22 01/12/25 Rx subcutaneous cartridge (Novolog #15 mL PenFill U-100 Insulin aspart) rosuvastatin 5 mg tablet 5 mg PO DAILY 12/18/22 01/12/25 History trazodone 50 mg tablet 50 mg PO QHS #90 tabs 12/18/23 01/12/25 Rx promethazine 12.5 mg tablet 12.5 mg PO Q6H PRN nausea and 05/31/24 12/28/24 Rx vomiting #10 tabs gabapentin 300 mg capsule 600 mg (2 x 300 mg) PO BID #120 09/22/24 01/12/25 Rx caps hydroxyzine HCl 10 mg tablet See Rx Instructions .Route 11/08/24 12/28/24 Rx .COMPLEX #90 tabs amlodipine 5 mg tablet See Rx Instructions .Route 12/20/24 01/12/25 Rx .COMPLEX #90 tabs insulin glargine-yfgn 100 unit/mL 3 unit subcut QPM 12/28/24 01/12/25 History (3 mL) subcutaneous pen oxycodone 10 mg tablet 10 mg PO TID PRN pain #90 tabs 01/07/25 01/12/25 Rx duloxetine 30 mg capsule,delayed 30 mg PO BID #180 caps 01/11/25 01/12/25 Rx release Allergies Allergy/AdvReac Type Severity Reaction Status Date / Time No Known Allergies Allergy Mild Verified 01/12/25 06:41 Vital Signs Vital Signs - 24 hr 01/12/25 06:43 Temperature 97 F L Pulse Rate 82 Respiratory Rate 18 Blood Pressure 157/80 H Pulse Oximetry 97 Oxygen Delivery Room Air Exam Const: General: comfortable and no acute distress HENMT: Face/Nose/Sinus: Normal nares present Eyes: General: appearance normal, both eyes and all related structures Neck: Neck: no JVD Resp: Auscultation: clear to auscultation bilaterally Cardio: Rate: regular rate Rhythm: regular rhythm GI: Inspection: non-distended GI Palp: Yes Soft to palpation Skin: General skin exam: normal color Neuro: Speech: normal speech Extrem: General: normal to inspection Psych: Mental Status: mental status grossly normal Assessment and Plan Assessment and plan (1) Adenomatous colon polyp: Code(s): D12.6 - Benign neoplasm of colon, unspecified Status: Acute Assessment and Plan: colonoscopy
--- NOTE | 2025-01-12 08:13 | S_PTH ---
PATIENT: Susan Acuña LOC: [facility] Cristina#:[id number] AGE/SX: 59/F ROOM: RE01/12/[address]: Angel Leyva MD : 1965 BED: DIS: 01/12/2025 SPEC #: [id number] RECD: 01/12/25 10:08 STATUS: ENOCH RE #: [id number] JOSH: 01/12/25 08:[address]: Angel Leyva DEPT: [facility] Surgical RECD BY: Tawnya Booth ENTERED: 01/12/25 10:09 SP TYPE: Surgical OTHR DR: Espinoza Olivera MD Tissues: A - Colon Polypectomy B - Colon Polypectomy Procedures: Hematoxylin and Eosin Stain Gross and Microscopic Level 4
[2025-01-12 08:14] VITALS: BP 113/64; PULSE 75; RESP 14; O2SAT 100
[2025-01-12 08:24] VITALS: BP 128/72; PULSE 70; RESP 16; O2SAT 100
[2025-01-12 08:34] VITALS: BP 135/69; PULSE 70; RESP 16; O2SAT 100
== END 2025-01-12 08:46 | disposition home or self-care (01) ==
PROVIDERS: PCP Family Medicine; Referring Provider Student in an Organized Health Care Education/Training Program; Visit Provider Internal Medicine Gastroenterology
PROC: 0DJD8ZZ Inspection of Lower Intestinal Tract, Via Natural or Artificial Opening Endoscopic (ICD-10-PCS; CPT 45378; principal; 2025-01-12 08:00)
DX: Z12.11 Encounter for screening for malignant neoplasm of colon (principal); D12.3 Benign neoplasm of transverse colon; D12.4 Benign neoplasm of descending colon; D64.9 Anemia, unspecified; E78.2 Mixed hyperlipidemia; E11.65 Type 2 diabetes mellitus with hyperglycemia; E11.21 Type 2 diabetes mellitus with diabetic nephropathy; E11.22 Type 2 diabetes mellitus with diabetic chronic kidney disease; I12.9 Hypertensive chronic kidney disease with stage 1 through stage 4 chronic kidney disease, or unspecified chronic kidney disease; N18.2 Chronic kidney disease, stage 2 (mild); R25.1 Tremor, unspecified; G47.00 Insomnia, unspecified; L71.0 Perioral dermatitis; G89.29 Other chronic pain; E66.9 Obesity, unspecified; Z68.33 Body mass index [BMI] 33.0-33.9, adult; M54.50 Low back pain, unspecified; Z79.4 Long term (current) use of insulin; Z79.85 Long-term (current) use of injectable non-insulin antidiabetic drugs; Z79.891 Long term (current) use of opiate analgesic; Z98.890 Other specified postprocedural states; Z90.5 Acquired absence of kidney; Z92.3 Personal history of irradiation; Z85.528 Personal history of other malignant neoplasm of kidney; Z80.9 Family history of malignant neoplasm, unspecified
CPT/HCPCS: 45385; 82948; 88305; J2704; J7120

== ENCOUNTER 2025-04-25 14:49 | Outpatient (CLI) | payer BC, MEDICARE, SELFPAY ==
--- NOTE | ~2025-04-25 | XR_ITS ---
XR elbow LT 2V INDICATION: W19.XXXA - Unspecified fall 3 wks ago, initial encounter . COMPARISON: None. FINDINGS: AP, lateral and oblique views of the left elbow demonstrate no acute fracture or dislocation. Radial head prosthesis is noted. There is lucency around the stem suggestive of loosening. IMPRESSION: No acute fracture or dislocation. 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 Reviewed, dictated and finalized at location [facility]
--- OUTSIDE RECORDS SUMMARY | 2025-04-25 15:05 | XMS_ITS | Clinical Summary ---
Author Organization [facility] Address [address] [place] [address] Care Team Providers Care Residential Program Coordinator Name Role Phone Unavailable Primary Care Provider Unavailabl e Source Comments [facility],non-owned Affiliates and Associated Physician Practices is amultiple site organization consisting of ambulatory clinics and hospital sitesin [place], [place], [place] and [place]. This disclosure is being madepursuant to the Care Everywhere program and may not contain all information available regarding this patient. Last updated 18.[facility] [employer] Social History Tobacco Use Types Packs/Day Years [...] SCREENING 1965 LIPID TESTING 1965 MAMMOGRAM 1965 MEDICARE AWV 12 MONTHS 1965 HIV SCREENING 1979 HEPATITIS C SCREENING 04/23/1982 DTAP/TDAP/TD VACCINES (1 - Tdap) 1983 PAP SMEAR 1985 PNEUMOCOCCAL VACCINE 50+ (1 of 1 - PCV) 2014 ZOSTER VACCINE (1 of 2) 2014 DEPRESSION SCREENING 04/28/2024 COVID-19 VACCINE ( - 2024-2 6 season) 2024 INFLUENZA VACCINE (#1) 2024 Respiratory Syncytial Virus [...] patient's age to complete this [place] [place] [address] MEDICARE [facility]
--- OUTSIDE RECORDS SUMMARY | 2025-04-25 15:05 | XMS_ITS | Encounter Summary ---
Author Organization [facility] Address [facility] [place] [address] Care Team Providers Care Crimping Press Operator Name Role Phone Isabella Avila MD Primary Care Provider [phone]- [phone] Encounter Details Date Type Department Care Team (Late st Contact Info) Description 11/18/2018 Hospital Follow-up Call [facility] Med/Surg [address] [place] [address] Darling Romero RN Social History Tobacco Use [...] on filedocumented in this encounter Care Teams Crimping Press Operator Relationship Specialty Start Date End Date Isabella Avila MD [address] [facility] [address] [facility] [address] [place] [address] PCP - General FAMILY PRACTICE 11/11/18 documented as of this encounter
--- OUTSIDE RECORDS SUMMARY | 2025-04-25 15:05 | XMS_ITS | Encounter Summary ---
Author Organization [facility] Address [facility] [place] [address] Care Team Providers Care Air Conditioning Specialist Name Role Phone Isabella Avila MD Primary Care Provider [phone]- [phone] Encounter Details Date Type Department Care Team (Late st Contact Info) Description 03/03/2020 [employer]t Message Enc [facility] - [facility] [address], [address] [place] [id number] Effie Chavira, APNP [address] [address] Test Results Social History Tobacco [...] pcp that [facility] sent to their office NT CARE NURSE PRACTITIONER documented in this encounter Plan of Treatment Not on file documented as of this encounter Visit Diagnoses Not on filedocumented in this encounter Additional Health Concerns Assessment Noted Time PHQ-9 Depression Total Score: 0 02/02/20 20 2:52 PM CDT documented as of this encounter Care Teams Air Conditioning Specialist Relationship Specialty Start Date End Date Isabella Avila MD [address] [facility] [address] [place] [address] PCP - General FAMILY PRACTICE 11/11/18 documented as of this encounter
--- OUTSIDE RECORDS SUMMARY | 2025-04-25 15:05 | XMS_ITS ---
Author Organization [facility] Physician Office Building [address] [place] [id number] Care Team Providers Care Superintendent Terminal Name Role Phone Isabella Avila MD Primary Care Provider Active Problems Problem Noted Date Diagnosed Date Insulin pump status 09/07/2024 Assessment & Plan (02/24/2025 2:54 PM CDT): No longer wearing pump Type 2 diabetes mellitus wit h stage 2 chronic kidney disease, with long-term current use of insulin 01/13/2023 Assessment & Plan (09/07/2024 2:11 PM CDT): Chronic problem. Managed by Dr Houston Nephropathy: On LUCA-I / ARB s : No. Last MA: 04/03/23 (). Last creat/GFR: 03/23/24 GFR=50, CR=1.25. Assessment & Plan (03/23/2024 3:55 PM MUSEUM INFORMATICS SPECIALIST): Chronic problem. Managed by Dr Houston. MAR [...] 150min/wk). Stage 3a chronic kidney disease 01/10/2021 Assessment & Plan (02/24/2025 2:16 PM CDT): Chronic problem. Managed by Dr Houston. [facility] 01/06/25, 01/05/26 Nephropathy: On LUCA-I / ARB s : No. Last MA: 09/07/24 (18). Last creat/GFR: 03/23/24 GFR=50, CR=1.25. Type 2 diabetes mellitus wit h hyperglycemia, with long-term current use of insulin 01/21/2020 Assessment & Plan (02/24/2025 2:54 PM CDT): Chronic problem, A1c uncontrolled but improved from 8.3% 09/07/24 to now 8.3%. Blood sugars are persistently hyperglycemic. In range 9p-1a. With midnight snack of mini chips ahoy: take 4 units. Can titrate up if needed. Current medications: Ozempic 2 mg weekly Insulin glargine 30 units nightly Humalog with meals For blood sugars over 140: take 8 units For blood sugars over 180: take 10 units For blood sugars over 220: take 12 units For blood sugars over 260: take 14 units For blood sugars over 300: take 16 units UTD DM eye (03/09/[address] Larios) Will update lipid/CMP. Verified that she uses mychart. Aware to check results/results letter in mychart. Will contact by phone if needed. Strive [...] skin breakdown and infection. Assessment & Plan (09/07/2024 3:06 PM CDT): [...] Larios) Will update MA/Cr.Verified that she uses mychart. Aware to check results/results letter in mychart. Will contact by phone if needed. Strive [...] infection. Assessment & Plan (03/23/2024 3:55 PM MUSEUM INFORMATICS SPECIALIST): Chronic problem, A1c uncontrolled and worsened from [...] infection. Assessment & Plan (04/03/2023 2:56 PM MUSEUM INFORMATICS SPECIALIST): Chronic problem, uncontrolled but a1c dropped from 9.3% to now 8.7%. will contact Wilma at [facility] re: pump orders. Mrs Acuña has been talking w/[facility] & would like to start the pump therapy. Contact info for [facility] on AVS for Mrs Acuña. Current medications: Levemir 22 units Ozempic 2 mg weekly Humalog before meals For sugars under 150, none 151-200, take 6 units 201-250, take 8 units Over 250, take 10 units UTD DM eye 02/2023. Will update labs today. Verified that she uses [employer]. Aware to check results/results letter in [employer]. Will contact by phone if needed. Strive [...] units Assessment & Plan (04/11/2022 3:52 PM MUSEUM INFORMATICS SPECIALIST): Chronic problem, deteriorating. Told her to stop [...] understands. Assessment & Plan (06/07/2021 4:51 PM MUSEUM INFORMATICS SPECIALIST): Hba1c was Lab Results Component Value Date [...] morning. Assessment & Plan (05/09/2020 10:05 AM MUSEUM INFORMATICS SPECIALIST): A1c improved to 7.6. Continue current medication. Provided with [employer] kit and instructed how to use ac/pc BG comparisons. BG goals reviewed. Assessment & Plan (01/24/2020 2:12 PM CDT): A1c 9.4. BG mid 100 range. Increase Levemir to 16 units. Schedule eye exam Other idiopathic scoliosis, thoracolumbar region 02/01/2019 Overview (02/01/2019): Added automatically from request for surgery [id number] Other secondary scoliosis, lumbar region 019 S/p [...] diabetes mark chawla 01/20/2018 Assessment & Plan (02/24/2025 2:14 PM CDT): Chronic problem, currently taking Atorvastatin 10mg. Last lipid panel: 03/23/24 LDL=57, OP=753. Will update lipid panel. Verified that she uses [employer]. Aware to check results/results letter in [employer]. Will contact by phone if needed. Assessment & Plan (09/07/2024 2:09 PM CDT): Chronic problem, currently taking Atorvastatin 10mg. Last lipid panel: 03/23/24 LDL=57, JB=585. Assessment & Plan (03/23/2024 3:54 PM MUSEUM INFORMATICS SPECIALIST): Chronic problem, currently taking Atorvastatin 10mg. Last [...] TG=78. Assessment & Plan (04/03/2023 2:30 PM MUSEUM INFORMATICS SPECIALIST): Chronic problem, currently taking Atorvastatin 10mg. Last lipid panel: 11/08/21 KHD=827, [place]=932. Will update labs today. Verified that she uses [employer]. Aware to check results/results letter in [employer]. Will contact by phone if needed. Assessment & Plan (10/17/2022 4:10 PM CDT): Chronic, well-controlled Continue statin therapy with atorvastatin Assessment & Plan (07/25/2022 3:23 PM CDT): Chronic problem, currently taking Atorvastatin 10mg. Last lipid panel: 11/08/21 WIY=687, NP=651. No changes at this time. Assessment & Plan (04/11/2022 3:50 PM MUSEUM INFORMATICS SPECIALIST): Chronic problem. On statin therapy, no changes. [...] exercise Assessment & Plan (06/08/2019 12:13 PM MUSEUM INFORMATICS SPECIALIST): Goal of treatment , LDL cholesterol less [...] exercise On statin therapy Hypertension associated with type 2 diabetes zayda litus 11/21/2016 Overview (11/21/2016): Assessment & Plan (02/24/2025 2:14 PM CDT): Chronic problem, controlled on current Metoprolol 50mg daily No changes at this time. Will update labs. Verified that she uses mychart. Aware to check results/results letter in [employer]. Will contact by phone if needed. Assessment & Plan (09/07/2024 2:09 PM CDT): Chronic problem, controlled on current Metoprolol 50mg daily No changes at this time. Assessment & Plan (03/23/2024 3:55 PM MUSEUM INFORMATICS SPECIALIST): Chronic problem, controlled on current Metoprolol 50mg [...] time. Assessment & Plan (04/03/2023 2:49 PM MUSEUM INFORMATICS SPECIALIST): Chronic problem, controlled on current Metoprolol 50mg daily No changes at this time. Will update labs today. Verified that she uses mychart. Aware to check results/results letter in [employer]. Will contact by phone if needed. Assessment & Plan (07/25/2022 3:22 PM CDT): Chronic problem, controlled on current Metoprolol 25mg bid. No changes at this time. Assessment & Plan (11/16/2020 1:19 PM CDT): Controlled on current medications. Continue plan. Assessment & Plan (05/09/2020 10:06 AM MUSEUM INFORMATICS SPECIALIST): Controlled on current medications. Continue plan. Assessment [...] meds Assessment & Plan (06/08/2019 12:12 PM MUSEUM INFORMATICS SPECIALIST): Goal blood pressure is less than 140/85 [...] ARB Assessment & Plan (06/24/2017 1:44 PM MUSEUM INFORMATICS SPECIALIST): Goal blood pressure is less than 140/85 [...] supper. Assessment & Plan (06/08/2019 12:11 PM MUSEUM INFORMATICS SPECIALIST): Hba1c was Lab Results Component Value Date [...] discussed. Assessment & Plan (06/24/2017 1:44 PM MUSEUM INFORMATICS SPECIALIST): Your Hba1c today was: 8.9 meaning a 3 month average sugar of : 210 Your goal hba1c is under 7.0 to prevent termination clerk diabetes complications ( eye , kidney and [...] 2-3 servings of carbs ( starches ) estefani your meals. Avoid soft drinks, including regular [...]
--- OUTSIDE RECORDS SUMMARY | 2025-04-25 15:05 | XMS_ITS | Clinical Summary ---
Author Organization [facility] Physician Office Building [address] [place] [phone] Care Team Providers Care Scale Operator Name Role Phone Isabella Avila MD [...] (PriLOSEC) 40 mg capsule omeprazole 40 mg capsule,delayed release TAKE 1 CAPSULE BY MOUTH DAILY [...] DAYS. 270 capsule 2 11/17/19 24 Active Additional Information Patient not taking.Reported on 02/24/2025 nitrofurantoin (MACRODANTIN) 100 mg capsule Take 1 capsule (100 mg total) by mouth 2 (two) times a day 11/11/19 Active estradioL (ESTRACE) 0.01 % (0.1 mg/gram) vaginal cream PLEASE SEE ATTACHED FOR DETAILED DIRECTIONS 02/05/[address] (CYMBALTA) 30 mg capsule Take 1 capsule (30 mg total) by mouth nightly 03/15/20 24 Active promethazine (PHENERGAN) 12.5 mg tablet Take 1 tablet (12.5 mg total) by mouth every 6 (six) hours as needed 05/31/19 Active NovoLOG 100 unit/mL (3 mL) pen for injectionIndic ations:Type 2 diabetes mellitus with hyperglycemia, with long-term current use of insulin ([facility]) Inject 8-16 Units under the skin 3 (three) times a day before meals 45 mL 3 09/08/19 25 026 Active pen needle, diabetic 32 gauge x 5/32 needleIndicati ons:Type 2 diabetes mellitus with hyperglycemia, with long-term current use of insulin ([facility]) Use to inject insulin 4 times daily 400 each 3 09/08/19 25 Active semaglutide (Ozempic) 2 mg/dose (8 mg/3 mL) pen injector injectionIndic ations:type 2 diabetes mellitus Inject 2 mg under the skin every 7 days 9 mL 3 09/08/19 25 026 Active atorvastatin (LIPITOR) 10 mg tabletIndicati ons:Type 2 diabetes mellitus with hyperglycemia, with long-term current use of insulin (HCC) TAKE 1 TABLET BY MOUTH EVERY DAY 90 tablet 3 10/12/19 25 Active insulin glargine 100 unit/mL (3 mL) pen for injectionIndic ations:Type 2 diabetes mellitus with hyperglycemia, with long-term current use of insulin ([facility]) Inject 36 Units under the skin nightly Dx E11.65 45 mL 2 10/15/19 25 026 Active Additional Information Patient taking differently: 30 Unitssubcutaneous Nightly, Dx E11.65, Reported on 02/24/2025 blood-glucose sensor (Dexcom G7 Sensor) deviceIndicati ons:Type 2 diabetes mellitus with hyperglycemia, with long-term current use of insulin ([facility]) USE FOR BLOOD GLUCOSE MONITORING. CHANGE SENSOR EVERY 10 DAYS DX: E11.65 9 each 3 12/15/19 Active insulin glargine 100 unit/mL (3 mL) pen for injectionIndic ations:Type 2 diabetes mellitus with hyperglycemia, with long-term current use of insulin (HCC) INJECT 20-22 UNITS UNDER THE SKIN NIGHTLY DX E11.65 15 mL 2 12/18/19 Active Additional Information Patient not taking.Reported on 02/24/2025 Active Problems Problem Noted Date Diagnosed Date [...] CR=1.25. Assessment & Plan (03/23/2024 3:55 PM REAL ESTATE SERVICES ADMINISTRATOR): Chronic problem. Managed by Dr Houston. MAR [...] CDT): Chronic problem. Managed by Dr Houston. ETIENNE 01/06/25, NOV 01/05/26 Nephropathy: On LUCA-I / ARB s [...] Will update lipid/CMP. Verified that she uses [employer]. Aware to check results/results letter in [employer]. Will contact by phone if needed. Strive [...] Larios) Will update MA/Cr.Verified that she uses [employer]. Aware to check results/results letter in [employer]. Will contact by phone if needed. Strive [...] infection. Assessment & Plan (03/23/2024 3:55 PM REAL ESTATE SERVICES ADMINISTRATOR): Chronic problem, A1c uncontrolled and worsened from [...] infection. Assessment & Plan (04/03/2023 2:56 PM REAL ESTATE SERVICES ADMINISTRATOR): Chronic problem, uncontrolled but a1c dropped from 9.3% to now 8.7%. will contact Wilma at [facility] re: pump orders. Mrs Birch has been talking w/[employer] & would like to start the pump therapy. Contact info for [facility] on AVS for Mrs Birch. Current medications: Levemir 22 units Ozempic 2 mg weekly Humalog before meals For sugars under 150, none 151-200, take 6 units 201-250, take 8 units Over 250, take 10 units UTD DM eye 02/2023. Will update labs today. Verified that she uses [employer]. Aware to check results/results letter in [employer]. Will contact by phone if needed. Strive [...] units Assessment & Plan (04/11/2022 3:52 PM REAL ESTATE SERVICES ADMINISTRATOR): Chronic problem, deteriorating. Told her to stop the cough medicine syrups with sugar, discussed alternative options. Increase Levemir to 22 units and increase by another 2 units if FBG >150. Sent a note to [facility] about starting the pump process. Also [...] understands. Assessment & Plan (06/07/2021 4:51 PM REAL ESTATE SERVICES ADMINISTRATOR): Hba1c was Lab Results Component Value Date [...] morning. Assessment & Plan (05/09/2020 10:05 AM REAL ESTATE SERVICES ADMINISTRATOR): A1c improved to 7.6. Continue current medication. Provided with Alfredo 2 senor kit and instructed how to use ac/pc BG comparisons. BG goals reviewed. Assessment & Plan (01/24/2020 2:12 PM CDT): A1c 9.4. BG mid 100 range. Increase Levemir to 16 units. Schedule eye exam Other idiopathic scoliosis, thoracolumbar region 02/01/2019 Overview (02/01/2019): Added automatically from request for surgery [id number] Other secondary scoliosis, lumbar region 019 S/p [...] Atorvastatin 10mg. Last lipid panel: 03/23/24 LDL=57, IE=222. Will update lipid panel. Verified that she uses [employer]. Aware to check results/results letter in [employer]. Will contact by phone if needed. Assessment & Plan (09/07/2024 2:09 PM CDT): Chronic problem, currently taking Atorvastatin 10mg. Last lipid panel: 03/23/24 LDL=57, AB=353. Assessment & Plan (03/23/2024 3:54 PM REAL ESTATE SERVICES ADMINISTRATOR): Chronic problem, currently taking Atorvastatin 10mg. Last [...] TG=78. Assessment & Plan (04/03/2023 2:30 PM REAL ESTATE SERVICES ADMINISTRATOR): Chronic problem, currently taking Atorvastatin 10mg. Last lipid panel: 11/08/21 ZLR=020, PH=237. Will update labs today. Verified that she uses [employer]. Aware to check results/results letter in [employer]. Will contact by phone if needed. Assessment & Plan (10/17/2022 4:10 PM CDT): Chronic, well-controlled Continue statin therapy with atorvastatin Assessment & Plan (07/25/2022 3:23 PM CDT): Chronic problem, currently taking Atorvastatin 10mg. Last lipid panel: 11/08/21 HSQ=002, KC=727. No changes at this time. Assessment & Plan (04/11/2022 3:50 PM REAL ESTATE SERVICES ADMINISTRATOR): Chronic problem. On statin therapy, no changes. [...] exercise Assessment & Plan (06/08/2019 12:13 PM REAL ESTATE SERVICES ADMINISTRATOR): Goal of treatment , LDL cholesterol less [...] Will update labs. Verified that she uses [employer]. Aware to check results/results letter in [employer]. Will contact by phone if needed. Assessment & Plan (09/07/2024 2:09 PM CDT): Chronic problem, controlled on current Metoprolol 50mg daily No changes at this time. Assessment & Plan (03/23/2024 3:55 PM REAL ESTATE SERVICES ADMINISTRATOR): Chronic problem, controlled on current Metoprolol 50mg [...] time. Assessment & Plan (04/03/2023 2:49 PM REAL ESTATE SERVICES ADMINISTRATOR): Chronic problem, controlled on current Metoprolol 50mg daily No changes at this time. Will update labs today. Verified that she uses [employer]. Aware to check results/results letter in [employer]. Will contact by phone if needed. Assessment & Plan (07/25/2022 3:22 PM CDT): Chronic problem, controlled on current Metoprolol 25mg bid. No changes at this time. Assessment & Plan (11/16/2020 1:19 PM CDT): Controlled on current medications. Continue plan. Assessment & Plan (05/09/2020 10:06 AM REAL ESTATE SERVICES ADMINISTRATOR): Controlled on current medications. Continue plan. Assessment [...] meds Assessment & Plan (06/08/2019 12:12 PM REAL ESTATE SERVICES ADMINISTRATOR): Goal blood pressure is less than 140/85 [...] ARB Assessment & Plan (06/24/2017 1:44 PM REAL ESTATE SERVICES ADMINISTRATOR): Goal blood pressure is less than 140/85 [...] supper. Assessment & Plan (06/08/2019 12:11 PM REAL ESTATE SERVICES ADMINISTRATOR): Hba1c was Lab Results Component Value Date [...] discussed. Assessment & Plan (06/24/2017 1:44 PM REAL ESTATE SERVICES ADMINISTRATOR): Your Hba1c today was: 8.9 meaning a 3 month average sugar of : 210 Your goal hba1c is under 7.0 to prevent assisted diabetes complications ( eye , kidney and [...] Encounters Date Type Department Care Team Description 03/15/2025 Results Follow-Up [facility] Diabetes and Endocrinology [address] [place] [phone] Elvia Garcia NP Lipid panel, Comprehensive metabolic panel 02/24/2025 2:00 PM CDT Office Visit [facility] Diabetes and Endocrinology [address] [place] [phone] Elvia Garcia NP Type 2 diabetes mellitus with hyperglycemia, with long-term current use of insulin (HCC) (Primary Dx); Hypertension associated with type 2 diabetes mellitus (HCC); Hyperlipidemia associated with type 2 diabetes mellitus (HCC); Insulin pump status; Stage 3a chronic kidney disease (HCC) from Last 3 Months Surgical History Surgery Date Site/Laterality Comments NEPHRECTOMY 04/28/1967 - 1968 Right left kidney partially removed 2009 ABDOMINAL SURGERY 04/28/2009 - 2010 Partial Nephrectomy SPINAL FUSION FOOT SURGERY BACK SURGERY NEUROBLASTOMA EXCISION Right Kidney Medical History Medical History Date Comments Hypertension Low back pain Chronic pain disorder Diabetes mellitus Kidney stone Allergic rhinitis Type 2 diabetes mellitus Status [facility] Status post chemotherapy 1967 Neuroblastoma, 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, partial left kidney 2009 Renal cell carcinoma [...] on file Legal Sex Female 1:24 AM REAL ESTATE SERVICES ADMINISTRATOR Gender Identity Not on file Sexual Orientation Not on file 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 Not on file Not on file Not on file Last Filed Vital Signs Vital Sign Reading Time Taken Comments Blood Pressure 130/76 02/24/2025 2:19 PM CDT Pulse 96 02/24/2025 2:19 PM CDT Temperature 37.1 C (98.7 F) 02/06/2022 3:00 PM CDT Respiratory Rate 18 02/24/2025 2:19 PM CDT Oxygen Saturation 97% 02/06/2022 3:00 PM CDT Inhaled Oxygen Concentration - - Weight 79.8 kg (176 lb) 02/24/2025 2:19 PM CDT Height 155.5 cm (5' 1.22) 02/24/2025 2:19 PM CD T Body Mass Index 33.02 02/24/2025 2:19 PM CDT Plan of Treatment Health Maintenance [...] Additional history exists Influenza Vaccine (#1) 2024 , 02/11/2019, 02/21/2018 Dilated Eye Exam 03/09/2025 03/09/2024, 11/2022, 02/27/2021, Additional history exists Hemoglobin A1C 08/25/2025 02/24/2025, 08/26, 03/23/2024, Additional history exists Albumin Creatinine Ratio, Urine 09/07/2025 09/07/2024, 04/03/2023, 05/07/2022, Additional history exists Foot Exam 09/07/2025 09/07/2024, 10/2022, 11/01/2021, Additional history exists Lipid Panel 03/11/2026 03/11/2025, 02/27, 04/03/2023, Additional history exists eGFR 03/11/2026 03/11/2025, 02/27, 04/03/2023, Additional history exists Medical Devices Implanted Type Area Cone Winder Device Identifier Shelf Expiration Date Model / Serial / Lot Medtronic Sofamor Danek [id number] Infuse 18mm 26mm Absorbable Sponge Sterile Water Syringe Needle - [id number] Implanted:Qty: 1 on 06/14/2019 by Fam Aragon MD at [facility] N/A: Spine Lumbar Medtronic Inc 08/26/2020 [id number] / / [id number] Medtronic Sofamor Danek [id number] Solera Cd Horizon 6.5mm 55mm Multiaxial Spine Screw Bone Cocr - [id number] Implanted:Qty: 2 on 06/14/2019 by Fam Aragon MD at [facility] N/A: Spine Lumbar Medtronic Inc [id number] / / Medtronic Sofamor Danek [id number] Legacy 7.5mm 70mm Closed Multiaxial Iliac Spine Screw Bone - [id number] Implanted:Qty: 1 on 06/14/2019 by Fam Aragon MD at [facility] N/A: Spine Lumbar Medtronic Inc [id number] / / Medtronic Sofamor Danek [id number] 5.5mm 80mm 7.5mm Iliac Spine Screw Bone Titanium Cmas - [id number] Implanted:Qty: 1 on 06/14/2019 by Fam Aragon MD at [facility] N/A: Spine Lumbar Medtronic Inc [id number] / / Medtronic Sofamor Danek [id number] Cd Horizon 5.5mm 20mm Closed Ilium Medium Connector Willie Titanium - [id number] Implanted:Qty: 2 on 06/14/2019 by Fam Aragon MD at [facility] N/A: Spine Lumbar Medtronic Inc [id number] / / Medtronic Inc [id number] 5.5mm 10mm Closed Lateral Spine Medium Connector Willie Titanium - [id number] Implanted:Qty: 2 on 06/14/2019 by Fam Aragon MD at [facility] N/A: Spine Lumbar Medtronic Inc [id number] / / Medtronic Sofamor Danek [id number] Cd Horizon Break Off Spinal Screw Set Titanium Nonsterile 5.5 Mm - [id number] Implanted:Qty: 18 on 06/14/2019 by Fam Aragon MD at [facility] N/A: Spine Lumbar Medtronic Inc [id number] / / Medtronic Sofamor Danek [id number] .25mm 32mm Breakoff Hexagonal Head Spine Iliac Screw Set Titanium - [id number] Implanted:Qty: 6 on 06/14/2019 by Fam Aragon MD at [facility] N/A: Spine Lumbar Medtronic Inc [id number] / / Medtronic Sofamor Danek [id number] Mastergraft Block Void Filler Substitute 20ml Bone Graft Matrix - [id number] Implanted:Qty: 1 on 06/14/2019 by Fam Aragon MD at [facility] Medtronic Inc [id number] / / Medtronic Inc [id number] Longitude Ii 5.5mm 500mm Straight Willie Spinal Cocr Molybdenum - [id number] Implanted:Qty: 2 on 06/14/2019 by Fam Aragon MD at [facility] N/A: Spine Lumbar Medtronic Inc [id number] / / Medtronic Sofamor Danek [id number] Infuse 18mm 26mm Absorbable Sponge Sterile Water Syringe Needle - [id number] Implanted:Qty: 1 on 06/14/2019 by Fam Aragno MD at [facility] N/A: Spine Lumbar Medtronic Inc 08/26/2020 [id number] / / [id number] Medtronic Sofamor Danek [id number] Infuse 18mm 26mm Absorbable Sponge Sterile Water Syringe Needle - [id number] Implanted:Qty: 1 on 06/14/2019 by Fam Aragon MD at [facility] N/A: Spine Thoracic Medtronic Inc 08/26/2020 [id number] / / [id number] Tissue Bone Void Filler Acupac Plus 100cc - [id number] - [id number] Implanted:Qty: 1 on 06/14/2019 by Fam Aragon MD at [facility] N/A: Spine Lumbar [employer] 01/26/2024 [id number] / [id number] / Medtronic Sofamor Danek [id number] Mastergraft Matrix Block Extension Void Filler Substitute 10ml - [id number] Implanted:Qty: 1 on 06/14/2019 by Fam Aragon MD at [facility] N/A: Spine Lumbar Medtronic Inc [id number] / / Medtronic Sofamor Danek [id number] Solera Cd Horizon 5.5mm 40mm Multiaxial Spine Screw Bone Cocr - [id number] Implanted:Qty: 11 on 06/14/2019 by Fam Aragon MD at [facility] N/A: Spine Lumbar Medtronic Inc [id number] / / Medtronic Sofamor Danek [id number] Solera Cd Horizon 4.5mm 40mm Multiaxial Spine Screw Bone Cocr - [id number] Implanted:Qty: 2 on 06/14/2019 by Fam Aragon MD at [facility] N/A: Spine Lumbar Medtronic Inc [id number] / / Medtronic Sofamor Danek [id number] Solera Cd Horizon 6.5mm 40mm Multiaxial Spine Screw Bone Cocr - [id number] Implanted:Qty: 1 on 06/14/2019 by Fam Aragon MD at [facility] N/A: Spine Lumbar Medtronic Inc [id number] / / Medtronic Sofamor Danek [id number] Solera Cd Horizon 6.5mm 45mm Multiaxial Spine Screw Bone Cocr - [id number] Implanted:Qty: 2 on 06/14/2019 by Fam Aragon MD at [facility] N/A: Spine Lumbar Medtronic Inc [id number] / / Procedures Procedure Name Priority Date/Time Associated Diagnosis Comments COMPREHENSIVE METABOLIC PANEL Routine 03/11/2025 1:50 PM REAL ESTATE SERVICES ADMINISTRATOR Type 2 diabetes mellitus with hyperglycemia, with long-term current use of insulin (HCC) Hypertension associated with type 2 diabetes mellitus (HCC) Stage 3a chronic kidney disease (HCC) LIPID PANEL Routine 03/11/2025 1:50 PM REAL ESTATE SERVICES ADMINISTRATOR Type 2 diabetes mellitus with hyperglycemia, with long-term current use of insulin ([facility]) Hyperlipidemia associated with type 2 diabetes mellitus ([facility]) POCT HEMOGLOBIN A1C Routine 02/24/2025 2 :31 PM CDT Type 2 diabetes mellitus with hyperglycemia, with long-term current use of insulin ([facility]) POCT GLUCOSE Routine 02/24/2025 2:21 PM CDT Type 2 diabetes mellitus with hyperglycemia, with long-term current use of insulin ([facility]) ALBUMIN CREATININE RATIO, URINE Routine 09/07/2024 5:00 PM CDT Type 2 diabetes mellitus with hyperglycemia, with long-term current use of insulin ([facility]) DIABETES EYE EXAM Routine 03/09/2024 from Last 3 Months or Most Recently Relevant to Health Maintenance Results * Lipid panel (03/11/2025 1:50 PM REAL ESTATE SERVICES ADMINISTRATOR) Cholesterol 146 100 - 199 mg/dL [facility] - 01 Triglycerides 85 0 - 149 mg/dL [facility] - 01 HDL Cholesterol 70 >39 mg/dL [facility] - 01 VLDL 16 5 - 40 mg/dL [facility] - 01 LDL, calculated 60 0 - 99 mg/dL [facility] - 01 Blood 03/11/2025 1:50 PM REAL ESTATE SERVICES ADMINISTRATOR 03/11/2025 Narrative [facility] - 03/12/2025 7:09 AM REAL ESTATE SERVICES ADMINISTRATOR Performed at: 01 - [address] [id number] Operations Officer [employer]: Clovis Stack PhD, Phone: [phone] us Elvia Garcia IT SUPPORT CONSULTANT LAB BLOOD ORDERABLES Indy l Result [facility] - [facility] * (ABNORMAL) Comprehensive metabolic panel (03/11/2025 1:50 PM REAL ESTATE SERVICES ADMINISTRATOR) Glucose 205(H) 70 - 99 mg/dL [facility] - 01 BUN 21 8 - 27 mg/dL [facility] - 01 Creatinine, Serum 1.26(H) 0.57 - 1.00 mg/dL [facility] - 01 eGFR 49(L) >59 mL/min/1.7 3 [facility] - 01 BUN/creat ratio 17 12 - 28 [facility] - 01 Sodium 137 134 - 144 mmol/L [facility] - 01 Potassium, sr 5.5(H) 3.5 - 5.2 mmol/L [facility] - 01 Chloride 98 96 - 106 mmol/L [facility] - 01 CO2 27 20 - 29 mmol/L [facility] - 01 Calcium 9.9 8.7 - 10.3 mg/dL [facility] - 01 Protein, sr 7.1 6.0 - 8.5 g/dL [facility] - 01 Albumin 4.1 3.8 - 4.9 g/dL [facility] - 01 Globulin, Total 3.0 1.5 - 4.5 g/dL [facility] - 01 Bilirubin, Total 0.3 0.0 - 1.2 mg/dL [facility] - 01 Alk phos 141(H) 49 - 135 IU/L [facility] - 01 AST 19 0 - 40 IU/L [facility] - 01 ALT 13 0 - 32 IU/L [facility] - 01 Blood 03/11/2025 1:50 PM REAL ESTATE SERVICES ADMINISTRATOR 03/11/2025 Narrative [facility] - 03/12/2025 7:09 AM REAL ESTATE SERVICES ADMINISTRATOR Performed at: - [facility] [id number] Operations Officer [employer]: Clovis Stack PhD, Phone: [phone] us Elviaonel Garcia IT SUPPORT CONSULTANT LAB BLOOD ORDERABLES Indy l Result Performing Organization Address City/[facility]/ZIP Co de Phone Number [facility] - 01 * (ABNORMAL) POCT hemoglobin A1c (02/24/2025 2:31 PM CDT) Pathologist [facility] Hemoglobin A1C, POC 8.0(A) 4.0 - 5.6 % Blood 02/24/2025 2:31 PM CDT us Elviaonel Garcia NP POINT OF CARE TEST ORDERA BLES Final Result * POCT glucose (02/24/2025 2:21 PM CDT) [facility] Glucose Blood, POC 212 Normal Fasting 70 - 100, Random <200 mg/dL Blood 02/24/2025 2:21 PM CDT us Elvia Garcia NP POINT OF CARE TEST ORDERA BLES Final Result * Albumin Creatinine Ratio, Urine (09/07/2024 5:00 PM CDT) Pathologist [facility] Albumin Ur 29.1 mg/L Comment: Interpretive Data No reference range established. Current interpretive data was last revised 2018. Creatinine Ur 158.2 mg/dL [facility] Comment: Interpretive Data No reference range established. Current interpretive data was last revised 2018. Albumin Creatinine Ratio, Ur 18 1 - 29 mg/g [facility] Urine 09/07/2024 5:00 PM CDT 09/07/2024 8:48 PM CDT us Elvia Garcia NP LAB URINE ORDERABLES Indy l Result [facility] [address] [place] [address] * (ABNORMAL) DIABETES EYE EXAM (03/09/2024) SCRIBED DIABETIC DILATED EYE EXAM Abnormal 03/09/2024 us Historical Provider HEALTH MAINTENANCE Edited Result - Final from Last 3 Months or Most Recently Relevant to Health Maintenance Insurance CHOICE [place] BL[place] [address] [employer] [place] COMP[place] GENERIC Advance Directives For more information, please contact: [phone] * Full Code (Latest Code Status on File) Date Activated Date Inactivated Comments 06/14/2019 2:06 PM 06/23/2019 7:06 PM Care Teams Scale Operator Relationship Specialty Start Date End Date Isabella Avila MD [address] [facility] [address] [facility] [address] [place] [address] PCP - General Family Medicine 10/03/16
--- OUTSIDE RECORDS SUMMARY | 2025-04-25 15:05 | XMS_ITS | Clinical Summary ---
Author Organization [facility] Address [address] [place] [address] Care Team Providers Care Roving Or Yarn Color Checker Name Role Phone Isabella Avila MD Primary Care Provider [phone] Allergies No known active allergies Medications zolpidem [...] Take 1,000 mcg by mouth daily. Active Pollock-3 Fatty Acids (FISH OIL) 1200 MG Cap [...] D2, ergocalciferol , (VITAMIN D, ERGOCALCIFEROL ,) 67599 UNITS capsule Take 50,000 Units by mouth. [...] Gluc Sensor (FREESTYLE BRANDY 14 DAY SENSOR) [facility] 1 Active Continuous Blood Gluc Delimer (FREESTYLE BRANDY 14 DAY READER) Device USE [...] of 2) 2014 COVID-19 Vaccine (3 - 2024-2 6 season) 2024 07/24/2020, 06/24/2020 Influenza Adult (#1) 2025 RSV Immunization or 60+ Years (1 - 1-dose 75+ series) 2039 Hepatitis A Vaccines Aged Out No long er eligible based on patient's age to complete this topic Meningococcal B Vaccine Aged Out No l onger eligible based on patient's age to complete this topic Meningococcal Vaccine Aged Out No marco kwabena eligible based on patient's age to complete this topic RSV Immunizations Under 20 Months Aged Out No longer eligible b ased on patient's age to complete this topic Medical Devices Implanted Type Area Solutions Market Consultant Device Identifier Shelf Expiration Date Model / Serial / Lot Stent [place] Hildebran 6fr X 22cm - [id number] Implanted:Qty: 1 on 12/11/2018 by Steve Winn MD at [facility] Stent Left: Ureter [employer] 02/02/2023 [id number] / / [id number] Stent [place] Hildebran 6fr X 22cm - [id number] Implanted:Qty: 1 on 11/12/2018 by Alexandre Hernández MD at [facility] Left: Ureter [employer] 03/14/2022 [id number] / / [id number] Insurance [facility] Advance Directives Documents on File Type Date Recorded Patient Trauma Registrar Expl anation Advance Directives and Livin g Will 01/19/2020 11:38 AM UMR * Full Code (Latest Code Status on File) Date Activated Date Inactivated Comments 11/12/2018 8:37 AM 11/14/2018 5:43 PM * Full Code Date Activated Date Inactivated Comments 11/11/2018 7:16 PM 11/12/2018 8:37 AM Care Teams Roving Or Yarn Color Checker Relationship Specialty Start Date End Date Isabella Avila MD [address] [facility] [address] [facility] [address] [place] [address] PCP - General FAMILY PRACTICE 11/11/18
--- OUTSIDE RECORDS SUMMARY | 2025-04-25 15:05 | XMS_ITS | Encounter Summary ---
Author Organization [facility] Address [address] [place] [id number] Phone Care Team Providers Care Electric Meter Tester Helper Name Role Phone Espinoza Olivera MD Primary Care Provider [phone] Reason for Visit * Reason Comments Med Refill Encounter Details Date Type Department Care Team ([facility] Contact Info) Description 09/29/2022 Refill [facility] [address] [place] [address] [phone] Simi Dwyer NP [address] [phone] Social History Tobacco Use Types Packs/Day Years [...] Upcoming Encounters Date Type Department Care Team ([facility] Contact Info) Description 01/05/2026 11:00 AM CDT Office Visit [facility] [address] [place] [address] Simi Dwyer, HUI [address] [facility] [address] [place] [address] documented as of this encounter Visit Diagnoses Not on filedocumented in this encounter Care Teams Electric Meter Tester Helper Relationship Specialty Start Date End Date Espinoza Olivera MD [address] [facility] [address] [place] [address] PCP - General Internal Medicine 01/06/25 documented as of this encounter
--- OUTSIDE RECORDS SUMMARY | 2025-04-25 15:05 | XMS_ITS | Clinical Summary ---
Author Organization [facility] Address [address] [place] [address] Phone Care Team Providers Care Instructor [employer] Name Role Phone Espinoza Olivera MD Primary Care Provider [phone] Allergies No known active allergies Medications gabapentin (NEURONTIN) 300 MG capsule Take 300 mg by mouth every night Active biotin 300 MCG tablet tablet 300 mcg in the morning. Active Pettibone-3 Fatty Acids (FISH OIL) 1200 MG capsule [...] mouth Active ergocalciferol (VITAMIN D-2) 1.25 MG (92346 UT) capsule Take 50,000 Units by mouth [...] injection Inject 14 Units under the skin in the morning and 14 Units in the evening. Inject before meals. Sliding scale. 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 Resolved Problems Problem Noted Date Diagnosed Date Resolved Date Urinary tract infectious disease 03/29/2020 01/03/2025 Anemia in chronic kidney disease 12/21/2019 07/04/2021 [...] Overview (04/07/2019): Description: 25# in 2.5 months Social History Tobacco Use Types Packs/Day Years Used Date Smoking Tobacco: Never Smokeless Tobacco: Never Tobacco Cessation:Counseling Given: Not Answered Alcohol Use Standard Drinks/Week Comments Never 0 (1 standard drink = 0.6 oz pur e alcohol) AUDIT-C Answer Date Recorded Frequency of Alcohol Consumption Never 12/08/2018 Average Number of Drinks Not on file Frequency of Binge Drinking Not on file 11/26 Comments Unknown Sex and Gender Information Value Date Recorded Sex Assigned at Not on file Legal Sex Female 10:33 AM MDT Gender Identity Not on file Sexual Orientation Not on file Last Filed Vital Signs Vital Sign Reading Time Taken Comments Blood Pressure 151/88 01/06/2025 10:17 AM CDT Pulse 77 01/06/2025 10:17 AM CDT Temperature 36.2 C (97.1 F) 01/02/2022 4:03 PM CDT Respiratory Rate - - Oxygen Saturation - - Inhaled Oxygen Concentration - - Weight 82.1 kg (181 lb) 01/06/2025 10:17 AM CDT Height 154.9 cm (5' 1) 01/06/2025 10:17 AM CDT Body Mass Index 34.2 01/06/2025 10:17 AM CDT Plan of Treatment Upcoming Encounters Date Type Department Care Team (Late st Contact Info) Description 01/05/2026 11:00 AM CDT Office Visit [facility] [address] [facility] [place] [address] Simi Dwyer NP [address] [facility] [address] [place] [address] Health Maintenance Due Date Last Done Comments Diabetic Foot Exam 1974 Ophthalmology Exam 1974 Pneumococcal PPSV23 Highest Risk Adult (1 of 3 - PCV13) 1983 Influenza Vaccine (#1) 2024 0, 02/11/2019, 02/21/2018 Insurance [facility] MEDICARE Care Teams Instructor [employer]water [employer] Relationship Specialty Start Date End Date Espinoza Olivera MD [address] [facility] [address] [facility] [address] [place] [address] PCP - General Internal Medicine 01/06/25
--- OUTSIDE RECORDS SUMMARY | 2025-04-25 15:05 | XMS_ITS | Encounter Summary ---
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
== END 2025-04-25 14:50 | disposition home or self-care (01) ==
PROVIDERS: PCP Family Medicine; Visit Provider Student in an Organized Health Care Education/Training Program
DX: T84.038A Mechanical loosening of other internal prosthetic joint, initial encounter (principal); W19.XXXA Unspecified fall, initial encounter; M25.522 Pain in left elbow; Z96.622 Presence of left artificial elbow joint
CPT/HCPCS: 73070